=== PATIENT | female | born 1935 | race Caucasian/White ===

== ENCOUNTER 2020-02-15 15:48 | Inpatient (IN) | payer MEDICARE ==
[~2020-02-15] VITALS: Ht 147.3 cm; Wt 36.0 kg
[~2020-02-15 15:48] MED LIST: AMLO10TA8 PO; ANTI1COM3 PO; ASCO100019 PO; ASPI-630 PO; CHOL40003 PO; CYAN10002 IJ; LACT1CAP29 PO; LISI-338 PO; MAGN500C10 PO; OLIV250C PO; OMEG10003 PO; POLY17PO29 PO; RIBO1POW3 MC; UBID100C26 PO; [UNRECOGNIZED DRUG - OTHER]; [UNRECOGNIZED DRUG - OTHER]; [UNRECOGNIZED DRUG - OTHER]
[2020-02-15] MEDS ORDERED: MAGN250T10 PO (16:26)
[2020-02-15] MEDS ORDERED: AMLO10TA8 PO (16:26)
[2020-02-15] MEDS ORDERED: ACET500T68 PO (16:27)
[2020-02-15] MEDS ORDERED: IBUP-1027 PO (16:27)
[2020-02-15 16:30] VITALS: BP 133/87
--- NOTE | 2020-02-15 16:37 | PDOC1 ---
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 She c/o worsening weakness which has acutely worsened just over the past 2 weeks. Her sodium level on 02/03/2020 was 134 and on a repeat visit to gastroenterology she was just informed of a sodium level of 127 today and noted with a weight of 68 pounds which is a 6 pound weight loss from 02/03/2020. She was also noted with ferritin in the 1000s and She underwent emergency ex lap, reduction of internal hernia, small bowel resection, cecectomy, ileocecal anastomosis and abdominal washout on 04/28/2019 at [facility] for small bowel obstruction with ischemic colitis. Since that time she is continued to lose weight and struggles with malabsorption symptoms including iron deficiency anemia not tolerating oral iron therapy requiring 2 recent iron infusions. She has been increasing her PO intake, eats fish, avocado, protein shakes, and continues to lose weight. Due to her abdominal swelling she has been taking miralax to decrease her bloating, but at the same time complained to GI about diarrhea. Due to concern for pancreatic insufficiency in December she was started on Creon and did not feel that it was helping and she continue to lose weight. GI is recommending GATTEX, but primarily needs evaluation for TPN infusions and is being admitted for acute hyponatremia and failure to thrive. Past Medical History Cardiovascular: HTN CENTRAL NERVOUS SYSTEM: CVA GI: Diverticulosis, GERD, Other (Short bowel syndrome) Heme/Onc: Other (Ovarian cancer) Hepatobiliary: No pertinent hx Psych: No pertinent hx Rheumatologic: No pertinent hx Infectious disease: Bacterial vaginosis ENT: No pertinent hx Renal/: No pertinent hx Endocrine: No pertinent hx Dermatology: No pertinent hx Past Surgical History Past Surgical History Vertebroplasty T8 and T12 Past Surgical History: Cataract Removal, Hysterectomy Family History Family History: Hypertension (Father), Stroke (Father) Social History Smoke: No ALCOHOL: none Drugs: None Current Medications Current Medications Active Scripts Active Reported Acetaminophen 500 Mg Tablet 500 Mg PO TID PRN Ibuprofen 400 Mg Tablet 400 Mg PO PRN Q6HRS PRN Magnesium (Magnesium Oxide) 250 Mg Tablet 250 Mg PO DAILY Amlodipine Besylate 10 Mg Tablet 10 Mg PO HS Aspirin 81 Mg Tab.chew 81 Mg PO DAILY Miralax (Polyethylene Glycol 3350) 17 Gm Powd.pack 1 Pkt PO DAILY Cyanocobalamin Injection (Cyanocobalamin (Vitamin B-12)) 1,000 Mcg/1 Ml Vial 1,000 Mcg IJ 2-3 WEEKS D-Ribose (Ribose) 1 Gm Powder 1 Gm MC [pecta 501-c] [complete b complex] [super k with K2] Macular Benefits Combo Pack (Antiox#12/Om3/Dha/Epa/Lut/Zean) 1 Each Combo..pkg 1 Each PO Probiotic (Lactobacillus Combo No.10) 1 Each Capsule 1 Each PO Vitamin C (Ascorbic Acid) 1,000 Mg Tablet 1,000 Mg PO DAILY Vitamin D3 (Cholecalciferol (Vitamin D3)) 4,000 Unit Capsule 5,000 Unit PO DAILY Coq-10 (Ubidecarenone) 100 Mg Capsule 100 Mg PO DAILY Super Hollywood-3 (Hollywood-3 Fatty Acids) 1,000 Mg Capsule 1,000 Mg PO DAILY Allergies Allergies: Coded Allergies: No Known Drug Allergies (Unverified , 12/29/19) ROS General: YES: Fatigue, Malaise, Appetite; No: Chills, Night Sweats, Other PSYCHOLOGICAL ROS: No: Anxiety, Behavioral Disorder, Concentration difficultie, Decreased libido, Depression, Disorientation, Hallucinations, Hostility, Irritablity, Memory difficulties, Mood Swings, Obsessive thoughts, Physical abuse, Sexual abuse, Sleep disturbances, Suicidal ideation, Other Eyes: No Blurry vision, No Decreased vision, No Double vision, No Dry eyes, No Excessive tearing, No Eye Pain, No Itchy Eyes, No Loss of vision, No Photophobia, No Scotomata, No Uses contacts, No Uses glasses, No Other HEENT: No: Heacaches, Visual Changes, Hearing change, Nasal congestion, Nasal discharge, Oral lesions, Sinus pain, Sore Throat, Epistaxis, Sneezing, Snoring, Tinnitus, Vertigo, Vocal changes, Other ALLERGY AND IMMUNOLOGY: No: Hives, Insect Bite Sensitivity, Itchy/Watery Eyes, Nasal Congestion, Post Nasal Drip, Seasonal Allergies, Other Hematological and Lymphatic: No: Bleeding Problems, Blood Clots, Blood Transfusions, Brusing, Night Sweats, Pallor, Swollen Lymph Nodes, Other ENDOCRINE: No: Breast Changes, Galactorrhea, Hair Pattern Changes, Hot Flashes, Malaise/lethargy, Mood Swings, Palpitations, Polydipsia/polyuria, Skin Changes, Temperature Intolerance, Unexpected Weight Changes, Other Breast: No New/Changing Breast Lumps, No Nipple changes, No Nipple discharge, No Other Respiratory: No: Cough, Hemoptysis, Orthopnea, Pleuritic Pain, Shortness of breath, SOB with excertion, Sputum Changes, Stridor, Tachypnea, Wheezing, Other Cardiovascular: No Chest Pain, No Palpitations, No Orthopnea, No Paroxysmal Noc. Dyspnea, No Edema, No Lt Headedness, No Other Gastrointestinal: Yes Nausea, Yes Abdominal Pain, Yes Diarrhea, Yes Constipation; No Vomiting, No Melena, No Hematochezia, No Other Genitourinary: No Dysuria, No Frequency, No Incontinence, No Hematuria, No Retention, No Discharge, No Urgency, No Pain, No Flank Pain, No Other, No , No , No , No , No , No , No Musculoskeletal: Yes Gait Disturbance, Yes Muscular Weakness; No Joint Pain, No Joint Stiffness, No Joint Swelling, No Muscle Pain, No Pain In:, No Swelling In:, No Other Neurological: Yes Gait Disturbance; No Behavorial Changes, No Bowel/Bladder ControlChng, No Confusion, No Dizziness, No Headaches, No Impaired Coord/balance, No Memory Loss, No Numbness/Tingling, No Seizures, No Speech Problems, No Tremors, No Visual Changes, No Weakness, No Other Skin: No Dry Skin, No Eczema, No Hair Changes, No Lumps, No Mole Changes, No Mottling, No Nail Changes, No Pruritus, No Rash, No Skin Lesion Changes, No Other, No Acne Physical Exam General: Alert, Oriented X3, Cooperative, No acute distress HEENT: Atraumatic, PERRLA, EOMI, Mucous membr. moist/pink Lungs: Clear to auscultation, Normal air movement Heart: S1S2, RRR, no thrills, no rubs, no gallops, no murmurs Abdomen: Normal bowel sounds, Soft, No tenderness, No hepatosplenomegaly, No masses Rectal Exam: not examined Extremities: No clubbing, No cyanosis, No edema, Normal pulses, No tenderness/swelling Skin: No rashes, No breakdown, No significant lesion Neuro: Normal speech, Strength at 5/5 X4 ext, Normal tone, Sensation intact, Cranial nerves 3-12 NL, Reflexes 2+ Psych/Mental Status: Mental status NL, Mood NL Vitals Vitals Vital Signs Date Time Temp Pulse Resp B/P (MAP) Pulse Ox O2 Delivery O2 Flow Rate FiO2 02/15/20 16:30 97.7 83 16 133/87 (102) 95 Room Air 97.7 VTE Prophylaxis Ordered VTE Prophylaxis Devices: No VTE Pharmacological Prophylaxi: Yes Assessment/Plan Assessment/Plan A/P: Hyponatremia - likely nutritional with malabsorption, concerning with acuity, will consult nephrology, check repeat lytes, mag, K levels, replace IV. Unintentional weight loss - concerning for malabsorption vs malignancy. Will have CT abdomen, her most recent was 07/13/2019, with her cancer history and abdominal swelling is concerning H/o CVA - few residual deficits, will cont ASA, have PT and OT assessment as she has been progressively more weak lately. 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 GI consulted FEN - Regular diet, consult IR for PICC for TPN infusions PPX - lovenox CODE - DNR/DNI Dispo - inpatient for above Justicifation of Admission Dx: Justifications for Admission: Justification of Admission Dx: Yes CHF: Sev. Electrolyte Abnormal CIRO SERNA MD Feb 15, 2020 16:37
[2020-02-15] MEDS ORDERED: guaiFENesin ORAL 200 MG/10 ML LIQUID. PO PRN (17:00)
[2020-02-15] MEDS ORDERED: ONDANSETRON PF 4 MG/2 ML VIAL. IV PRN (17:00)
[2020-02-15] MEDS ORDERED: IV NORMAL SALINE 1000ML BAG 1,000 ML IV ONE (17:00)
[2020-02-15 18:20] LABS: BASO % 1 % (0-3); EOS % 1 % (0-3); HEMATOCRIT 35.5 % (36.0-47.0); HEMOGLOBIN 12.3 g/dL (12.0-15.5); LYMPH # 0.6 x10^3/uL (1.0-4.8); LYMPH % 13 % (24-48); MEAN CORPUSCULAR HEMOGLOBIN 32 pg (25-35); MEAN CORPUSCULAR HGB CONC 35 g/dL (31-37); MEAN CORPUSCULAR VOLUME 92 fL (79-100); MONO # 0.4 x10^3/uL (0.0-1.1); MONO % 10 % (0-9); NEUT # 3.3 x10^3/uL (1.8-7.7); NEUT % 76 % (31-73); PLATELET COUNT 286 x10^3/uL (140-400); RED BLOOD COUNT 3.86 x10^6/uL (3.50-5.40); RED CELL DISTRIBUTION WIDTH 26.5 % (11.5-14.5); WHITE BLOOD COUNT 4.3 x10^3/uL (4.0-11.0)
[2020-02-15 18:33] LABS: ALBUMIN/GLOBULIN RATIO 1.3 (1.0-1.7); CREATININE 0.8 mg/dL (0.6-1.0); GFR 68.7; TOTAL BILIRUBIN 0.3 mg/dL (0.2-1.0)
[2020-02-15 18:39] LABS: POTASSIUM 2.8 mmol/L (3.5-5.1)
[2020-02-15 19:00] VITALS: BP 134/62
[2020-02-15 19:15] LABS: ANISOCYTOSIS MARKED; PLT ESTIMATE ADEQUATE (ADEQUATE); SCHISTOCYTES FEW
[2020-02-15] MEDS ORDERED: POTASSIUM CHLORIDE 20 MEQ TABLET.ER. PO ONE (19:30)
[2020-02-15] MEDS: MIRTAZAPINE 7.5 MG TABLET. PO SCH (20:23)
[2020-02-15] MEDS: amLODIPine BESYLATE 10 MG TABLET PO SCH (20:23)
[2020-02-15] MEDS: POTASSIUM CHLORIDE 10MEQ 100 ML IV SCH (20:26)
[2020-02-15] MEDS ORDERED: MAGNESIUM SULFATE 2GM 50 ML IV ONE (21:00)
[2020-02-15] MEDS: ACETAMINOPHEN 325 MG TABLET. PO PRN (22:07)
[2020-02-15 23:00] VITALS: BP 133/59
[2020-02-16] MEDS: POTASSIUM CHLORIDE 10MEQ 100 ML IV SCH ×3 (00:22→11:20)
[2020-02-16 03:00] VITALS: BP 128/63
[2020-02-16 07:00] VITALS: BP 137/62
[2020-02-16 07:38] LABS: CALCIUM 8.5 mg/dL (8.5-10.1); CREATININE 0.5 mg/dL (0.6-1.0); GFR 118.1; POTASSIUM 3.5 mmol/L (3.5-5.1)
[2020-02-16] MEDS ORDERED: IOHEXOL 240 MG/ML 50ML VIAL. PO ONE (08:00)
[2020-02-16] MEDS ORDERED: IOHEXOL 300 MG/ML 100ML VIAL. IV ONE (08:00)
--- NOTE | 2020-02-16 08:53 | PDOC2 ---
GI CONSULT Date of Service: DATE: 02/16/20 TIME: 08:53 Reason For Consult: short bowel syndrome HPI: HPI: Pleasant 84 y/o female directly admitted per Dr. Smith for hyponatremia and weight loss. H/o malabsorption and short gut syndrome w/ h/o SBR for ischemia/internal hernia @ [facility] in 04/2019 (w/ 100cm of SB remaining). To have CT and PICC placement today w/ goal of home TPN, also to have nephrology evaluation. Eating well - has a good appetite and eats healthy proteins. No n/v or reflux/heartburn. No dysphagia. No bleeding. Has abdominal bloated and discomfort after eating that is momentarily relieved with stooling. Previously had diarrhea, then constipation thought related to iron infusions so started Miralax QD which she has continued. With this, has 2-3 stools daily soon after eating - stools are formed at first and then loose. H/o elevated fecal fat. Pancreatic enzymes ineffective (caused constipation and bloating). H/o anemia - iron and B12 deficient. Says [id number] gives her B12 inj. Has declined EGD and colonoscopy. Last colonoscopy normal in 2011. Had SIBO test yesterday. Gattex also discussed in the past. PMH: PMH: CVA, HTN, uterina cancer, BCC, anxiety, osteoporosis back surgery, cataract removal (bilateral), vertebroplasty x 2, hysterectomy FH: Family History: CVA, Hypertension Social History: Smoke: No ALCOHOL: none Drugs: None ROS: GEN: Denies fevers, chills, sweats HEENT: Denies blurred vision, sore throat CV: Denies chest pain RESP: Denies shortness of air, cough GI: Per HPI : Denies hematuria, dysuria ENDO: +weight loss NEURO: Denies confusion, dizziness MSK: +weakness SKIN: Denies jaundice, pruritus Vitals: Vitals: Vital Signs Date Time Temp Pulse Resp B/P (MAP) Pulse Ox O2 Delivery O2 Flow Rate FiO2 02/16/20 08:00 Room Air 02/16/20 07:00 97.8 79 137/62 (87) 97 97.8 02/15/20 23:00 22 Labs: Labs: Laboratory Tests Test 02/15/20 18:05 02/16/20 06:35 White Blood Count 4.3 x10^3/uL (4.0-11.0) Red Blood Count 3.86 x10^6/uL (3.50-5.40) Hemoglobin 12.3 g/dL (12.0-15.5) Hematocrit 35.5 % (36.0-47.0) Mean Corpuscular Volume 92 fL (79-100) Mean Corpuscular Hemoglobin 32 pg (25-35) Mean Corpuscular Hemoglobin Concent 35 g/dL (31-37) Red Cell Distribution Width 26.5 % (11.5-14.5) Platelet Count 286 x10^3/uL (140-400) Neutrophils (%) (Auto) 76 % (31-73) Lymphocytes (%) (Auto) 13 % (24-48) Monocytes (%) (Auto) 10 % (0-9) Eosinophils (%) (Auto) 1 % (0-3) Basophils (%) (Auto) 1 % (0-3) Neutrophils # (Auto) 3.3 x10^3/uL (1.8-7.7) Lymphocytes # (Auto) 0.6 x10^3/uL (1.0-4.8) Monocytes # (Auto) 0.4 x10^3/uL (0.0-1.1) Eosinophils # (Auto) 0.0 x10^3/uL (0.0-0.7) Basophils # (Auto) 0.0 x10^3/uL (0.0-0.2) Platelet Estimate Adequate (ADEQUATE) Anisocytosis Marked Schistocytes Few Sodium Level 127 mmol/L (136-145) 131 mmol/L (136-145) Potassium Level 2.8 mmol/L (3.5-5.1) 3.5 mmol/L (3.5-5.1) Chloride Level 90 mmol/L (98-107) 96 mmol/L (98-107) Carbon Dioxide Level 29 mmol/L (21-32) 30 mmol/L (21-32) Anion Gap 8 (6-14) 5 (6-14) Blood Urea Nitrogen 24 mg/dL (7-20) 17 mg/dL (7-20) Creatinine 0.8 mg/dL (0.6-1.0) 0.5 mg/dL (0.6-1.0) Estimated GFR (Cockcroft-Gault) 68.7 118.1 BUN/Creatinine Ratio 30 (6-20) Glucose Level 110 mg/dL (70-99) 76 mg/dL (70-99) Calcium Level 9.0 mg/dL (8.5-10.1) 8.5 mg/dL (8.5-10.1) Magnesium Level 1.7 mg/dL (1.8-2.4) Iron Level 92 ug/dL (50-170) Total Iron Binding Capacity 350 ug/dL (250-450) Iron Saturation 26 % (15-34) Total Bilirubin 0.3 mg/dL (0.2-1.0) Aspartate Amino Transf (AST/SGOT) 27 U/L (15-37) Alanine Aminotransferase (ALT/SGPT) 24 U/L (14-59) Alkaline Phosphatase 76 U/L (46-116) Total Protein 7.0 g/dL (6.4-8.2) Albumin 4.0 g/dL (3.4-5.0) Albumin/Globulin Ratio 1.3 (1.0-1.7) Allergies: Coded Allergies: No Known Drug Allergies (Unverified , 12/29/19) Medications: Current Medications Medications (Trade) Dose Ordered Sig/Yeimi Route PRN Reason Start Time Stop Time Status Last Admin Dose Admin Acetaminophen (Tylenol) 650 mg PRN Q4HRS PRN PO TEMP OVER 100.4F OR MILD PAIN 02/15/20 17:00 02/15/20 22:07 Amlodipine Besylate (Norvasc) 10 mg HS PO 02/15/20 21:00 02/15/20 20:23 Mirtazapine (Remeron) 7.5 mg QHS PO 02/15/20 21:00 02/15/20 20:23 Sodium Chloride 1,000 ml @ 75 mls/hr 1X ONCE IV 02/15/20 17:00 02/16/20 06:19 DC 02/15/20 17:27 Potassium Chloride/Water 100 ml @ 100 mls/hr Q1H IV 02/15/20 19:30 02/15/20 23:29 DC 02/16/20 06:23 Potassium Chloride (Klor-Con) 40 meq 1X ONCE PO 02/15/20 19:30 02/15/20 19:31 DC 02/15/20 20:25 Magnesium Sulfate 50 ml @ 25 mls/hr 1X ONCE IV 02/15/20 21:00 02/15/20 22:59 DC 02/16/20 03:39 Imaging: Imaging: CT A/P pending PE: GEN: NAD, emaciated HEENT: Atraumatic, PERRL LUNGS: CTAB HEART: RRR ABD: NABS, S/ND/NT EXTREMITY: No edema SKIN: No rashes, no jaundice NEURO/PSYCH: A & O 3 A/P: A/P: Hyponatremia, hypokalemia, weight loss, abd bloating H/o short bowel syndrome/malabsorption s/p SBR for ischemic/internal hernia H/o anemia - reports iron infusions and B12 inj CRC screen - 2011 -- Plans as above for CT and PICC placement. Consider port placement in the future. Will return to see w/ Dr. Worthington. NENO FAY Feb 16, 2020 08:53
[2020-02-16] MEDS ORDERED: NON FORMULARY ITEM (Ubidecarenone (Coq-10) 100 MG) PO SCH (09:00)
[2020-02-16] MEDS ORDERED: LIDOCAINE WITH 8.4% SOD BICARB 3 ML DISP.SYRIN. ONE (09:25)
[2020-02-16] MEDS ORDERED: LIDOCAINE WITH 8.4% SOD BICARB 3 ML DISP.SYRIN. INJ ONE (09:45)
[2020-02-16 10:54] VITALS: BP 146/67
--- NOTE | 2020-02-16 11:01 | PDOC2 ---
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 She c/o worsening weakness which has acutely worsened just over the past 2 weeks. She underwent emergency ex lap, reduction of internal hernia, small bowel resection, cecectomy, ileocecal anastomosis and abdominal washout on 04/28/2019 at [facility] for small bowel obstruction with ischemic colitis. Since that time she is continued to lose weight probably 2/2 malabsorption . Unable to tolerate oral iron therapy requiring 2 recent iron infusions. She has been increasing her PO intake but continues to lose weight. She noticed abdominal swelling and has been taking miralax to decrease her bloating, but reported diarrhea to GI Due to concern for pancreatic insufficiency in December she was started on Creon and did not feel that it was helping and she continue to lose weight. Pt admitted for evaluation for TPN infusions, failure to thrive and acute hyponatremia She denies N/V. No CP or SOB. No F/C. Denies any dysuria or other Urinary complaints . She ate BF this am, currently eating lunch Her sodium level on 02/03/2020 was 134 and on a repeat visit to gastroenterology she was just informed of a sodium level of 127 at presentation and noted with a weight of 68 pounds which is a 6 pound weight loss from 02/03/2020. Past Medical History Cardiovascular: HTN CENTRAL NERVOUS SYSTEM: CVA GI: Diverticulosis, GERD, Other (Short bowel syndrome) Heme/Onc: Other (Ovarian cancer) Hepatobiliary: No pertinent hx Psych: No pertinent hx Rheumatologic: No pertinent hx Infectious disease: Bacterial vaginosis ENT: No pertinent hx Renal/: No pertinent hx Endocrine: No pertinent hx Dermatology: No pertinent hx Past Surgical History Past Surgical History: Cataract Removal, Hysterectomy Family History Family History: Hypertension (Father), Stroke (Father) Social History No ALCOHOL: none Drugs: None Current Medications Current Medications Current Medications Ondansetron HCl (Zofran) 4 mg PRN Q4HRS PRN IV NAUSEA/VOMITING; Start 02/15/20 at 17:00 Acetaminophen (Tylenol) 650 mg PRN Q4HRS PRN PO TEMP OVER 100.4F OR MILD PAIN Last administered on 02/15/20at 22:07; Start 02/15/20 at 17:00 Docusate Sodium (Colace) 100 mg PRN BID PRN PO HARD STOOLS; Start 02/15/20 at 17:00 Guaifenesin (Robitussin) 200 mg PRN Q4HRS PRN PO COUGH; Start 02/15/20 at 17:00 Amlodipine Besylate (Norvasc) 10 mg HS PO Last administered on 02/15/20at 20:23; Start 02/15/20 at 21:00 Aspirin (Aspirin Chewable) 81 mg DAILY PO ; Start 02/16/20 at 09:00 Ascorbic Acid (Vitamin C) 1,000 mg DAILY PO ; Start 02/16/20 at 09:00 Vitamin D (Vitamin D3) 5,000 unit DAILY PO ; Start 02/16/20 at 09:00 Magnesium Oxide (Magnesium Oxide) 400 mg DAILY PO ; Start 02/16/20 at 09:00 Fish Oil (Fish Oil) 1,000 mg DAILY PO ; Start 02/16/20 at 09:00 Non-Formulary Medication (Ubidecarenone (Coq-10)) 100 mg DAILY PO ; Start at 09:00; Status UNV Mirtazapine (Remeron) 7.5 mg QHS PO Last administered on 02/15/20at 20:23; Start 02/15/20 at 21:00 Sodium Chloride 1,000 ml @ 75 mls/hr 1X ONCE IV Last administered on 02/15/20at 17:27; Start 02/15/20 at 17:00; Stop 02/16/20 at 06:19; Status DC Potassium Chloride/Water 100 ml @ 100 mls/hr Q1H IV Last administered on 02/16/20at 06:23; Start 02/15/20 at 19:30; Stop 02/15/20 at 23:29; Status DC Potassium Chloride (Klor-Con) 40 meq 1X ONCE PO Last administered on 02/15/20at 20:25; Start 02/15/20 at 19:30; Stop 02/15/20 at 19:31; Status DC Magnesium Sulfate 50 ml @ 25 mls/hr 1X ONCE IV Last administered on 02/16/20at 03:39; Start 02/15/20 at 21:00; Stop 02/15/20 at 22:59; Status DC Iohexol (Omnipaque 240 Mg/ml) 30 ml 1X ONCE PO Last administered on 02/16/20at 08:00; Start 02/16/20 at 08:00; Stop 02/16/20 at 08:01; Status DC Iohexol (Omnipaque 300 Mg/ml) 75 ml 1X ONCE IV Last administered on 02/16/20at 09:20; Start 02/16/20 at 08:00; Stop 02/16/20 at 08:01; Status DC Lidocaine HCl (Buffered Lidocaine 1%) 3 ml STK-MED ONCE .ROUTE ; Start 02/16/20 at 09:25; Stop 02/16/20 at 09:25; Status DC Lidocaine HCl (Buffered Lidocaine 1%) 6 ml 1X ONCE INJ Last administered on 02/16/20at 09:56; Start 02/16/20 at 09:45; Stop 02/16/20 at 09:46; Status DC Active Scripts Active Reported Acetaminophen 500 Mg Tablet 500 Mg PO TID PRN Ibuprofen 400 Mg Tablet 400 Mg PO PRN Q6HRS PRN Magnesium (Magnesium Oxide) 250 Mg Tablet 250 Mg PO DAILY Amlodipine Besylate 10 Mg Tablet 10 Mg PO HS Aspirin 81 Mg Tab.chew 81 Mg PO DAILY Miralax (Polyethylene Glycol 3350) 17 Gm Powd.pack 1 Pkt PO DAILY Cyanocobalamin Injection (Cyanocobalamin (Vitamin B-12)) 1,000 Mcg/1 Ml Vial 1,000 Mcg IJ 2-3 WEEKS D-Ribose (Ribose) 1 Gm Powder 1 Gm MC [pecta 501-c] [complete b complex] [super k with K2] Macular Benefits Combo Pack (Antiox#12/Om3/Dha/Epa/Lut/Zean) 1 Each Combo..pkg 1 Each PO Probiotic (Lactobacillus Combo No.10) 1 Each Capsule 1 Each PO Vitamin C (Ascorbic Acid) 1,000 Mg Tablet 1,000 Mg PO DAILY Vitamin D3 (Cholecalciferol (Vitamin D3)) 4,000 Unit Capsule 5,000 Unit PO DAILY Coq-10 (Ubidecarenone) 100 Mg Capsule 100 Mg PO DAILY Super Weed-3 (Weed-3 Fatty Acids) 1,000 Mg Capsule 1,000 Mg PO DAILY Allergies Allergies: Coded Allergies: No Known Drug Allergies (Unverified , 12/29/19) ROS Review of System As per HPI, rest of the ROS is negative Physical Exam Physical Exam General: No acute distress HEENT: Atraumatic, PERRLA, EOMI, Mucous membr. moist/pink Neck Supple Lungs: Clear to auscultation, Non labored Heart: S1S2, RRR, Abdomen: Normal bowel sounds, Soft, No tenderness, No hepatosplenomegaly, No masses Extremities: No clubbing, No cyanosis, No edema, Normal pulses, No tenderness/swelling Skin: No rashes Neuro: Grossly normal Psych/Mental Status: Mental status NL, Mood NL Vital Signs Vital Signs Date Time Temp Pulse Resp B/P (MAP) Pulse Ox O2 Delivery O2 Flow Rate FiO2 02/16/20 08:00 Room Air 02/16/20 07:00 97.8 79 137/62 (87) 97 97.8 02/15/20 23:00 22 Assessment & Plan Hyponatremia - likely nutritional with malabsorption, Dehydration Improved some with IVF, Mildly low , Monitor Anticipate improvement with TPN HypoKalemia Replaced Unintentional weight loss - concerning for malabsorption vs malignancy. CT abdomen pending report HTN - On Amlodipine, stable H/o CVA Severe protein calorie malnutrition - by weight loss and muscle mass loss criteria, will likely require TPN and interior block wirer assistance H/o ovarian cancer Short bowel syndrome - recent surgery for ischemic bowel 10 months ago Anemia - s/p iron infusion recently Failure to thrive Abdominal swelling - CT abdomen/pelvis pending, GI consulted Labs Labs Laboratory Tests Test 02/15/20 18:05 02/16/20 06:35 White Blood Count 4.3 x10^3/uL (4.0-11.0) Red Blood Count 3.86 x10^6/uL (3.50-5.40) Hemoglobin 12.3 g/dL (12.0-15.5) Hematocrit 35.5 % (36.0-47.0) Mean Corpuscular Volume 92 fL (79-100) Mean Corpuscular Hemoglobin 32 pg (25-35) Mean Corpuscular Hemoglobin Concent 35 g/dL (31-37) Red Cell Distribution Width 26.5 % (11.5-14.5) Platelet Count 286 x10^3/uL (140-400) Neutrophils (%) (Auto) 76 % (31-73) Lymphocytes (%) (Auto) 13 % (24-48) Monocytes (%) (Auto) 10 % (0-9) Eosinophils (%) (Auto) 1 % (0-3) Basophils (%) (Auto) 1 % (0-3) Neutrophils # (Auto) 3.3 x10^3/uL (1.8-7.7) Lymphocytes # (Auto) 0.6 x10^3/uL (1.0-4.8) Monocytes # (Auto) 0.4 x10^3/uL (0.0-1.1) Eosinophils # (Auto) 0.0 x10^3/uL (0.0-0.7) Basophils # (Auto) 0.0 x10^3/uL (0.0-0.2) Platelet Estimate Adequate (ADEQUATE) Anisocytosis Marked Schistocytes Few Sodium Level 127 mmol/L (136-145) 131 mmol/L (136-145) Potassium Level 2.8 mmol/L (3.5-5.1) 3.5 mmol/L (3.5-5.1) Chloride Level 90 mmol/L (98-107) 96 mmol/L (98-107) Carbon Dioxide Level 29 mmol/L (21-32) 30 mmol/L (21-32) Anion Gap 8 (6-14) 5 (6-14) Blood Urea Nitrogen 24 mg/dL (7-20) 17 mg/dL (7-20) Creatinine 0.8 mg/dL (0.6-1.0) 0.5 mg/dL (0.6-1.0) Estimated GFR (Cockcroft-Gault) 68.7 118.1 BUN/Creatinine Ratio 30 (6-20) Glucose Level 110 mg/dL (70-99) 76 mg/dL (70-99) Calcium Level 9.0 mg/dL (8.5-10.1) 8.5 mg/dL (8.5-10.1) Magnesium Level 1.7 mg/dL (1.8-2.4) Iron Level 92 ug/dL (50-170) Total Iron Binding Capacity 350 ug/dL (250-450) Iron Saturation 26 % (15-34) Total Bilirubin 0.3 mg/dL (0.2-1.0) Aspartate Amino Transf (AST/SGOT) 27 U/L (15-37) Alanine Aminotransferase (ALT/SGPT) 24 U/L (14-59) Alkaline Phosphatase 76 U/L (46-116) Total Protein 7.0 g/dL (6.4-8.2) Albumin 4.0 g/dL (3.4-5.0) Albumin/Globulin Ratio 1.3 (1.0-1.7) Laboratory Tests Test 02/15/20 18:05 02/16/20 06:35 White Blood Count 4.3 x10^3/uL (4.0-11.0) Red Blood Count 3.86 x10^6/uL (3.50-5.40) Hemoglobin 12.3 g/dL (12.0-15.5) Hematocrit 35.5 % (36.0-47.0) Mean Corpuscular Volume 92 fL (79-100) Mean Corpuscular Hemoglobin 32 pg (25-35) Mean Corpuscular Hemoglobin Concent 35 g/dL (31-37) Red Cell Distribution Width 26.5 % (11.5-14.5) Platelet Count 286 x10^3/uL (140-400) Neutrophils (%) (Auto) 76 % (31-73) Lymphocytes (%) (Auto) 13 % (24-48) Monocytes (%) (Auto) 10 % (0-9) Eosinophils (%) (Auto) 1 % (0-3) Basophils (%) (Auto) 1 % (0-3) Neutrophils # (Auto) 3.3 x10^3/uL (1.8-7.7) Lymphocytes # (Auto) 0.6 x10^3/uL (1.0-4.8) Monocytes # (Auto) 0.4 x10^3/uL (0.0-1.1) Eosinophils # (Auto) 0.0 x10^3/uL (0.0-0.7) Basophils # (Auto) 0.0 x10^3/uL (0.0-0.2) Platelet Estimate Adequate (ADEQUATE) Anisocytosis Marked Schistocytes Few Sodium Level 127 mmol/L (136-145) 131 mmol/L (136-145) Potassium Level 2.8 mmol/L (3.5-5.1) 3.5 mmol/L (3.5-5.1) Chloride Level 90 mmol/L (98-107) 96 mmol/L (98-107) Carbon Dioxide Level 29 mmol/L (21-32) 30 mmol/L (21-32) Anion Gap 8 (6-14) 5 (6-14) Blood Urea Nitrogen 24 mg/dL (7-20) 17 mg/dL (7-20) Creatinine 0.8 mg/dL (0.6-1.0) 0.5 mg/dL (0.6-1.0) Estimated GFR (Cockcroft-Gault) 68.7 118.1 BUN/Creatinine Ratio 30 (6-20) Glucose Level 110 mg/dL (70-99) 76 mg/dL (70-99) Calcium Level 9.0 mg/dL (8.5-10.1) 8.5 mg/dL (8.5-10.1) Magnesium Level 1.7 mg/dL (1.8-2.4) Iron Level 92 ug/dL (50-170) Total Iron Binding Capacity 350 ug/dL (250-450) Iron Saturation 26 % (15-34) Total Bilirubin 0.3 mg/dL (0.2-1.0) Aspartate Amino Transf (AST/SGOT) 27 U/L (15-37) Alanine Aminotransferase (ALT/SGPT) 24 U/L (14-59) Alkaline Phosphatase 76 U/L (46-116) Total Protein 7.0 g/dL (6.4-8.2) Albumin 4.0 g/dL (3.4-5.0) Albumin/Globulin Ratio 1.3 (1.0-1.7) Review All relevant outside records, renal labs, imaging studies, telemetry/EKG's were reviewed. ANGELA ECKERT MD Feb 16, 2020 11:01
[2020-02-16] MEDS ORDERED: POTASSIUM CHLORIDE 20 MEQ TABLET.ER. PO ONE (11:15)
--- NOTE | 2020-02-16 11:19 | PDOC ---
[employer] PROGRESS NOTE Date of Service DOS: DATE: 02/16/20 TIME: 11:12 Chief Complaint Chief Complaint A/P: Hyponatremia - likely nutritional with malabsorption, concerning with acuity, will consult nephrology, check repeat lytes, mag, K levels, replace IV. Hypokalemia - replacing Hypomagnesemia - replacing Unintentional weight loss - concerning for malabsorption vs malignancy. Will have CT abdomen, her most recent was 07/13/2019, with her cancer history and abdominal swelling is concerning H/o CVA - few residual deficits, will cont ASA, have PT and OT assessment as she has been progressively more weak lately. Severe protein calorie malnutrition - by weight loss and muscle mass loss criteria, will likely require TPN and editor assistance HTN - cont home CCB H/o ovarian cancer - will order [facility] records Short bowel syndrome - working diagnosis given her recent surgery for ischemic bowel 10 months ago Anemia - iron replaced, likely also with anemia of chronic disease/inflammation Failure to thrive in adult - see above Weakness and debility - partially nutritionally related, needs rehabilitation Abdominal swelling - will review CT abdomen/pelvis. 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 She c/o worsening weakness which has acutely worsened just over the past 2 weeks. Her sodium level on 02/03/2020 was 134 and on a repeat visit to gastroenterology she was just informed of a sodium level of 127 today and noted with a weight of 68 pounds which is a 6 pound weight loss from 02/03/2020. She was also noted with ferritin in the 1000s and She underwent emergency ex lap, reduction of internal hernia, small bowel re section, cecectomy, ileocecal anastomosis and abdominal washout on 04/28/2019 at [facility] for small bowel obstruction with ischemic colitis. Since that time she is continued to lose weight and struggles with malabsorption symptoms including iron deficiency anemia not tolerating oral iron therapy requiring 2 recent iron infusions. She has been increasing her PO intake, eats fish, avocado, protein shakes, and continues to lose weight. Due to her abdominal swelling she has been taking miralax to decrease her bloating, but at the same time complained to GI about diarrhea. Due to concern for pancreatic insufficiency in December she was started on Creon and did not feel that it was helping and she continue to lose weight. GI is recommending GATTEX, but primarily needs evaluation for TPN infusions and is being admitted for acute hyponatremia and failure to thrive. Potassium was 2.8, improved to 3.5 today, magnesium 1.7 was replaced. Sodium 131 today. She is feeling improved. To PICC line today. Voracious appetite. CT by my read appears to show some nodules in the liver and a very large fluid collection in the right middle aspect of the liver. Vitals/I&O Vitals/I&O: Vital Signs Date Time Temp Pulse Resp B/P (MAP) Pulse Ox O2 Delivery O2 Flow Rate FiO2 02/16/20 10:54 97.9 76 146/67 (93) 94 Room Air 97.9 02/15/20 23:00 22 I & O 02/15/20 02/15/20 02/16/20 15:00 23:00 07:00 Intake Total 380 ml 200 ml Output Total 1150 ml Balance 380 ml -950 ml Physical Exam General: Alert, Oriented X3, Cooperative, No acute distress Abdomen: Normal bowel sounds, Soft, No tenderness, No hepatosplenomegaly, No masses Extremities: No clubbing, No cyanosis, No edema, Normal pulses, No tenderness/swelling Skin: No rashes, No breakdown, No significant lesion Labs Labs: Laboratory Tests Test 02/15/20 18:05 02/16/20 06:35 White Blood Count 4.3 x10^3/uL (4.0-11.0) Red Blood Count 3.86 x10^6/uL (3.50-5.40) Hemoglobin 12.3 g/dL (12.0-15.5) Hematocrit 35.5 % (36.0-47.0) Mean Corpuscular Volume 92 fL (79-100) Mean Corpuscular Hemoglobin 32 pg (25-35) Mean Corpuscular Hemoglobin Concent 35 g/dL (31-37) Red Cell Distribution Width 26.5 % (11.5-14.5) Platelet Count 286 x10^3/uL (140-400) Neutrophils (%) (Auto) 76 % (31-73) Lymphocytes (%) (Auto) 13 % (24-48) Monocytes (%) (Auto) 10 % (0-9) Eosinophils (%) (Auto) 1 % (0-3) Basophils (%) (Auto) 1 % (0-3) Neutrophils # (Auto) 3.3 x10^3/uL (1.8-7.7) Lymphocytes # (Auto) 0.6 x10^3/uL (1.0-4.8) Monocytes # (Auto) 0.4 x10^3/uL (0.0-1.1) Eosinophils # (Auto) 0.0 x10^3/uL (0.0-0.7) Basophils # (Auto) 0.0 x10^3/uL (0.0-0.2) Platelet Estimate Adequate (ADEQUATE) Anisocytosis Marked Schistocytes Few Sodium Level 127 mmol/L (136-145) 131 mmol/L (136-145) Potassium Level 2.8 mmol/L (3.5-5.1) 3.5 mmol/L (3.5-5.1) Chloride Level 90 mmol/L (98-107) 96 mmol/L (98-107) Carbon Dioxide Level 29 mmol/L (21-32) 30 mmol/L (21-32) Anion Gap 8 (6-14) 5 (6-14) Blood Urea Nitrogen 24 mg/dL (7-20) 17 mg/dL (7-20) Creatinine 0.8 mg/dL (0.6-1.0) 0.5 mg/dL (0.6-1.0) Estimated GFR (Cockcroft-Gault) 68.7 118.1 BUN/Creatinine Ratio 30 (6-20) Glucose Level 110 mg/dL (70-99) 76 mg/dL (70-99) Calcium Level 9.0 mg/dL (8.5-10.1) 8.5 mg/dL (8.5-10.1) Magnesium Level 1.7 mg/dL (1.8-2.4) Iron Level 92 ug/dL (50-170) Total Iron Binding Capacity 350 ug/dL (250-450) Iron Saturation 26 % (15-34) Total Bilirubin 0.3 mg/dL (0.2-1.0) Aspartate Amino Transf (AST/SGOT) 27 U/L (15-37) Alanine Aminotransferase (ALT/SGPT) 24 U/L (14-59) Alkaline Phosphatase 76 U/L (46-116) Total Protein 7.0 g/dL (6.4-8.2) Albumin 4.0 g/dL (3.4-5.0) Albumin/Globulin Ratio 1.3 (1.0-1.7) Comment Review of Relevant I have reviewed the following items yuni (where applicable) has been applied. Medications: Current Medications Medications (Trade) Dose Ordered Sig/Yeimi Route PRN Reason Start Time Stop Time Status Last Admin Dose Admin Acetaminophen (Tylenol) 650 mg PRN Q4HRS PRN PO TEMP OVER 100.4F OR MILD PAIN 02/15/20 17:00 02/15/20 22:07 Amlodipine Besylate (Norvasc) 10 mg HS PO 02/15/20 21:00 02/15/20 20:23 Mirtazapine (Remeron) 7.5 mg QHS PO 02/15/20 21:00 02/15/20 20:23 Sodium Chloride 1,000 ml @ 75 mls/hr 1X ONCE IV 02/15/20 17:00 02/16/20 06:19 DC 02/15/20 17:27 Potassium Chloride/Water 100 ml @ 100 mls/hr Q1H IV 02/15/20 19:30 02/15/20 23:29 DC 02/16/20 06:23 Potassium Chloride (Klor-Con) 40 meq 1X ONCE PO 02/15/20 19:30 02/15/20 19:31 DC 02/15/20 20:25 Magnesium Sulfate 50 ml @ 25 mls/hr 1X ONCE IV 02/15/20 21:00 02/15/20 22:59 DC 02/16/20 03:39 Iohexol (Omnipaque 240 Mg/ml) 30 ml 1X ONCE PO 02/16/20 08:00 02/16/20 08:01 DC 02/16/20 08:00 Iohexol (Omnipaque 300 Mg/ml) 75 ml 1X ONCE IV 02/16/20 08:00 02/16/20 08:01 DC 02/16/20 09:20 Lidocaine HCl (Buffered Lidocaine 1%) 6 ml 1X ONCE INJ 02/16/20 09:45 02/16/20 09:46 DC 02/16/20 09:56 Justicifation of Admission Dx: Justifications for Admission: Justification of Admission Dx: Yes CHF: Sev. Electrolyte Abnormal CIRO SERNA MD Feb 16, 2020 11:19
[2020-02-16] MEDS: ASCORBIC ACID 500 MG TABLET PO SCH (11:20)
[2020-02-16] MEDS: ASPIRIN CHEWABLE 81 MG TABLET. PO SCH (11:20)
[2020-02-16] MEDS: CHOLECALCIFEROL (VITAMIN D3) 5,000 UNIT CAPSULE PO SCH (11:21)
[2020-02-16] MEDS: MAGNESIUM OXIDE 400 MG TABLET PO SCH (11:21)
[2020-02-16] MEDS: OMEGA-3 FATTY ACIDS/FISH OIL 1,000 MG CAPSULE. PO SCH (11:21)
--- NOTE | 2020-02-16 11:23 | NUR ---
SS following for discharge planning. SS reviewed pt chart and discussed with pt RN. Pt is from home and is currently on room air. PT/OT evaluated and recommended home with home healthcare. SS will continue to follow for discharge planning.
--- NOTE | 2020-02-16 11:56 | RAD ---
Procedure: Upper extremity PICC line placement Clinical Indication: Adult female requiring long-term central venous access Sedation: Local anesthesia only was provided Antibiotics: None Fluoro Time: 2.1 minutes, images: 1 Contrast: None Sterility: All elements of maximal sterile barrier technique including the use of a cap, mask, sterile gown, sterile gloves, large sterile sheet, appropriate hand hygiene, and 2% chlorhexidine for cutaneous antisepsis (or acceptable alternative antiseptic per current guidelines) were followed for this procedure. Consent: The procedure was explained in its entirety to the patient or the patients designated account maintenance representative by a member of the treatment team, including a discussion of the risks, benefits and commonly accepted alternatives to the procedure, as well as the expected consequences of no therapy whatsoever. Discussion of the risks included, but was not limited to, those that are most frequent and those that are rare but possibly severe or life-threatening, as well as the possibility of unforeseen complications. Technique and Findings: Following informed consent, the patient was prepped and draped in the usual sterile fashion. Ultrasound interrogation of the right arm revealed patency and compressibility of the right brachial vein. A hard copy ultrasound image was recorded. 1% Lidocaine was used to achieve local anesthesia and a 21-gauge micropuncture needle was used to gain access to the targeted vein. The needle was exchanged over wire for a 5 Albanian peel-away sheath which was used to deploy a PICC line under fluoroscopic guidance such that the distal tip resided at the cavoatrial junction. The catheter flushed and aspirated with ease and was sutured to the skin. Complications: No immediate Impression: 1. Ultrasound guided PICC line placement as described.
--- NOTE | 2020-02-16 12:08 | PDOC2 ---
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 She is severely cachectic and admitted for TPN and correction of electrolytes. 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 Past Medical History Cardiovascular: HTN CENTRAL NERVOUS SYSTEM: CVA GI: Diverticulosis, GERD, Other (Short bowel syndrome) Heme/Onc: Other (Ovarian cancer) Hepatobiliary: No pertinent hx Psych: No pertinent hx Rheumatologic: No pertinent hx Infectious disease: Bacterial vaginosis ENT: No pertinent hx Renal/: No pertinent hx Endocrine: No pertinent hx Dermatology: No pertinent hx Past Surgical History Past Surgical History: Cataract Removal, Hysterectomy Family History Family History: Hypertension (Father), Stroke (Father) Social History No ALCOHOL: none Drugs: None Current Medications Current Medications Current Medications Ondansetron HCl (Zofran) 4 mg PRN Q4HRS PRN IV NAUSEA/VOMITING; Start 02/15/20 at 17:00 Acetaminophen (Tylenol) 650 mg PRN Q4HRS PRN PO TEMP OVER 100.4F OR MILD PAIN Last administered on 02/15/20at 22:07; Start 02/15/20 at 17:00 Docusate Sodium (Colace) 100 mg PRN BID PRN PO HARD STOOLS; Start 02/15/20 at 17:00 Guaifenesin (Robitussin) 200 mg PRN Q4HRS PRN PO COUGH; Start 02/15/20 at 17:00 Amlodipine Besylate (Norvasc) 10 mg HS PO Last administered on 02/15/20at 20:23; Start 02/15/20 at 21:00 Aspirin (Aspirin Chewable) 81 mg DAILY PO Last administered on 02/16/20at 11:20; Start 02/16/20 at 09:00 Ascorbic Acid (Vitamin C) 1,000 mg DAILY PO Last administered on 02/16/20at 11:20; Start 02/16/20 at 09:00 Vitamin D (Vitamin D3) 5,000 unit DAILY PO Last administered on 02/16/20at 11:21; Start 02/16/20 at 09:00 Magnesium Oxide (Magnesium Oxide) 400 mg DAILY PO Last administered on 02/16/20at 11:21; Start 02/16/20 at 09:00 Fish Oil (Fish Oil) 1,000 mg DAILY PO Last administered on 02/16/20at 11:21; Start 02/16/20 at 09:00 Non-Formulary Medication (Ubidecarenone (Coq-10)) 100 mg DAILY PO ; Start 02/16/20 at 09:00; Status UNV Mirtazapine (Remeron) 7.5 mg QHS PO Last administered on 02/15/20at 20:23; Start 02/15/20 at 21:00 Sodium Chloride 1,000 ml @ 75 mls/hr 1X ONCE IV Last administered on 02/15/20at 17:27; Start 02/15/20 at 17:00; Stop 02/16/20 at 06:19; Status DC Potassium Chloride/Water 100 ml @ 100 mls/hr Q1H IV Last administered on 02/16/20at 11:20; Start 02/15/20 at 19:30; Stop 02/15/20 at 23:29; Status DC Potassium Chloride (Klor-Con) 40 meq 1X ONCE PO Last administered on 02/15/20at 20:25; Start 02/15/20 at 19:30; Stop 02/15/20 at 19:31; Status DC Magnesium Sulfate 50 ml @ 25 mls/hr 1X ONCE IV Last administered on 02/16/20at 03:39; Start 02/15/20 at 21:00; Stop 02/15/20 at 22:59; Status DC Iohexol (Omnipaque 240 Mg/ml) 30 ml 1X ONCE PO Last administered on 02/16/20at 08:00; Start 02/16/20 at 08:00; Stop 02/16/20 at 08:01; Status DC Iohexol (Omnipaque 300 Mg/ml) 75 ml 1X ONCE IV Last administered on 02/16/20at 09:20; Start 02/16/20 at 08:00; Stop 02/16/20 at 08:01; Status DC Lidocaine HCl (Buffered Lidocaine 1%) 3 ml STK-MED ONCE .ROUTE ; Start 02/16/20 at 09:25; Stop 02/16/20 at 09:25; Status DC Lidocaine HCl (Buffered Lidocaine 1%) 6 ml 1X ONCE INJ Last administered on 02/16/20at 09:56; Start 02/16/20 at 09:45; Stop 02/16/20 at 09:46; Status DC Potassium Chloride (Klor-Con) 40 meq 1X ONCE PO Last administered on 02/16/20at 11:23; Start 02/16/20 at 11:15; Stop 02/16/20 at 11:16; Status DC Active Scripts Active Reported Acetaminophen 500 Mg Tablet 500 Mg PO TID PRN Ibuprofen 400 Mg Tablet 400 Mg PO PRN Q6HRS PRN Magnesium (Magnesium Oxide) 250 Mg Tablet 250 Mg PO DAILY Amlodipine Besylate 10 Mg Tablet 10 Mg PO HS Aspirin 81 Mg Tab.chew 81 Mg PO DAILY Miralax (Polyethylene Glycol 3350) 17 Gm Powd.pack 1 Pkt PO DAILY Cyanocobalamin Injection (Cyanocobalamin (Vitamin B-12)) 1,000 Mcg/1 Ml Vial 1,000 Mcg IJ 2-3 WEEKS D-Ribose (Ribose) 1 Gm Powder 1 Gm MC [pecta 501-c] [complete b complex] [super k with K2] Macular Benefits Combo Pack (Antiox#12/Om3/Dha/Epa/Lut/Zean) 1 Each Combo..pkg 1 Each PO Probiotic (Lactobacillus Combo No.10) 1 Each Capsule 1 Each PO Vitamin C (Ascorbic Acid) 1,000 Mg Tablet 1,000 Mg PO DAILY Vitamin D3 (Cholecalciferol (Vitamin D3)) 4,000 Unit Capsule 5,000 Unit PO DAILY Coq-10 (Ubidecarenone) 100 Mg Capsule 100 Mg PO DAILY Super [place]-3 ([place]-3 Fatty Acids) 1,000 Mg Capsule 1,000 Mg PO DAILY Allergies Allergies: Coded Allergies: No Known Drug Allergies (Unverified , 12/29/19) ROS General: No: Chills, Night Sweats, Fatigue, Malaise, Appetite, Other Respiratory: No: Cough, Hemoptysis, Orthopnea, Pleuritic Pain, Shortness of breath, SOB with excertion, Sputum Changes, Stridor, Tachypnea, Wheezing, Other Cardiovascular: No Chest Pain, No Palpitations, No Orthopnea, No Paroxysmal Noc. Dyspnea, No Edema, No Lt Headedness, No Other Gastrointestinal: Yes Other (abdominal swelling) Musculoskeletal: Yes Other (chronic back pain) Neurological: No Behavorial Changes, No Bowel/Bladder ControlChng, No Confusion, No Dizziness, No Gait Disturbance, No Headaches, No Impaired Coord/balance, No Memory Loss, No Numbness/Tingling, No Seizures, No Speech Problems, No Tremors, No Visual Changes, No Weakness, No Other Skin: No Dry Skin, No Eczema, No Hair Changes, No Lumps, No Mole Changes, No Mottling, No Nail Changes, No Pruritus, No Rash, No Skin Lesion Changes, No Other, No Acne Physical Exam General: Alert, Oriented X3, Cooperative, Other (cachectic) HEENT: Atraumatic Lungs: Clear to auscultation Heart: Regular rate Abdomen: Soft (very thin) Extremities: No clubbing, No cyanosis Skin: No rashes Neuro: Normal speech Psych/Mental Status: Mental status NL Vitals VITALS Vital Signs Date Time Temp Pulse Resp B/P (MAP) Pulse Ox O2 Delivery O2 Flow Rate FiO2 02/16/20 10:54 97.9 76 146/67 (93) 94 Room Air 97.9 02/15/20 23:00 22 Labs Labs Laboratory Tests Test 02/15/20 18:05 02/16/20 06:35 White Blood Count 4.3 x10^3/uL (4.0-11.0) Red Blood Count 3.86 x10^6/uL (3.50-5.40) Hemoglobin 12.3 g/dL (12.0-15.5) Hematocrit 35.5 % (36.0-47.0) Mean Corpuscular Volume 92 fL (79-100) Mean Corpuscular Hemoglobin 32 pg (25-35) Mean Corpuscular Hemoglobin Concent 35 g/dL (31-37) Red Cell Distribution Width 26.5 % (11.5-14.5) Platelet Count 286 x10^3/uL (140-400) Neutrophils (%) (Auto) 76 % (31-73) Lymphocytes (%) (Auto) 13 % (24-48) Monocytes (%) (Auto) 10 % (0-9) Eosinophils (%) (Auto) 1 % (0-3) Basophils (%) (Auto) 1 % (0-3) Neutrophils # (Auto) 3.3 x10^3/uL (1.8-7.7) Lymphocytes # (Auto) 0.6 x10^3/uL (1.0-4.8) Monocytes # (Auto) 0.4 x10^3/uL (0.0-1.1) Eosinophils # (Auto) 0.0 x10^3/uL (0.0-0.7) Basophils # (Auto) 0.0 x10^3/uL (0.0-0.2) Platelet Estimate Adequate (ADEQUATE) Anisocytosis Marked Schistocytes Few Sodium Level 127 mmol/L (136-145) 131 mmol/L (136-145) Potassium Level 2.8 mmol/L (3.5-5.1) 3.5 mmol/L (3.5-5.1) Chloride Level 90 mmol/L (98-107) 96 mmol/L (98-107) Carbon Dioxide Level 29 mmol/L (21-32) 30 mmol/L (21-32) Anion Gap 8 (6-14) 5 (6-14) Blood Urea Nitrogen 24 mg/dL (7-20) 17 mg/dL (7-20) Creatinine 0.8 mg/dL (0.6-1.0) 0.5 mg/dL (0.6-1.0) Estimated GFR (Cockcroft-Gault) 68.7 118.1 BUN/Creatinine Ratio 30 (6-20) Glucose Level 110 mg/dL (70-99) 76 mg/dL (70-99) Calcium Level 9.0 mg/dL (8.5-10.1) 8.5 mg/dL (8.5-10.1) Magnesium Level 1.7 mg/dL (1.8-2.4) Iron Level 92 ug/dL (50-170) Total Iron Binding Capacity 350 ug/dL (250-450) Iron Saturation 26 % (15-34) Total Bilirubin 0.3 mg/dL (0.2-1.0) Aspartate Amino Transf (AST/SGOT) 27 U/L (15-37) Alanine Aminotransferase (ALT/SGPT) 24 U/L (14-59) Alkaline Phosphatase 76 U/L (46-116) Total Protein 7.0 g/dL (6.4-8.2) Albumin 4.0 g/dL (3.4-5.0) Albumin/Globulin Ratio 1.3 (1.0-1.7) Laboratory Tests Test 02/15/20 18:05 02/16/20 06:35 White Blood Count 4.3 x10^3/uL (4.0-11.0) Red Blood Count 3.86 x10^6/uL (3.50-5.40) Hemoglobin 12.3 g/dL (12.0-15.5) Hematocrit 35.5 % (36.0-47.0) Mean Corpuscular Volume 92 fL (79-100) Mean Corpuscular Hemoglobin 32 pg (25-35) Mean Corpuscular Hemoglobin Concent 35 g/dL (31-37) Red Cell Distribution Width 26.5 % (11.5-14.5) Platelet Count 286 x10^3/uL (140-400) Neutrophils (%) (Auto) 76 % (31-73) Lymphocytes (%) (Auto) 13 % (24-48) Monocytes (%) (Auto) 10 % (0-9) Eosinophils (%) (Auto) 1 % (0-3) Basophils (%) (Auto) 1 % (0-3) Neutrophils # (Auto) 3.3 x10^3/uL (1.8-7.7) Lymphocytes # (Auto) 0.6 x10^3/uL (1.0-4.8) Monocytes # (Auto) 0.4 x10^3/uL (0.0-1.1) Eosinophils # (Auto) 0.0 x10^3/uL (0.0-0.7) Basophils # (Auto) 0.0 x10^3/uL (0.0-0.2) Platelet Estimate Adequate (ADEQUATE) Anisocytosis Marked Schistocytes Few Sodium Level 127 mmol/L (136-145) 131 mmol/L (136-145) Potassium Level 2.8 mmol/L (3.5-5.1) 3.5 mmol/L (3.5-5.1) Chloride Level 90 mmol/L (98-107) 96 mmol/L (98-107) Carbon Dioxide Level 29 mmol/L (21-32) 30 mmol/L (21-32) Anion Gap 8 (6-14) 5 (6-14) Blood Urea Nitrogen 24 mg/dL (7-20) 17 mg/dL (7-20) Creatinine 0.8 mg/dL (0.6-1.0) 0.5 mg/dL (0.6-1.0) Estimated GFR (Cockcroft-Gault) 68.7 118.1 BUN/Creatinine Ratio 30 (6-20) Glucose Level 110 mg/dL (70-99) 76 mg/dL (70-99) Calcium Level 9.0 mg/dL (8.5-10.1) 8.5 mg/dL (8.5-10.1) Magnesium Level 1.7 mg/dL (1.8-2.4) Iron Level 92 ug/dL (50-170) Total Iron Binding Capacity 350 ug/dL (250-450) Iron Saturation 26 % (15-34) Total Bilirubin 0.3 mg/dL (0.2-1.0) Aspartate Amino Transf (AST/SGOT) 27 U/L (15-37) Alanine Aminotransferase (ALT/SGPT) 24 U/L (14-59) Alkaline Phosphatase 76 U/L (46-116) Total Protein 7.0 g/dL (6.4-8.2) Albumin 4.0 g/dL (3.4-5.0) Albumin/Globulin Ratio 1.3 (1.0-1.7) Assessment/Plan Assessment/Plan 84 year old female with short gut syndrome, weight loss, cachectic; a picc line was placed today to initiate TPN. Placement of a portacath would require OR intervention with anesthesia. There are some unique challenges including her severe cachexia, marked kyphosis, and absolute lack of subcutaneous fat. She would be a poor OR candidate and I would have concerns regarding wound healing and possible port erosion in the skin given the lack of SQ tissue. Would recommend initiating TPN by PICC line in hopes of improving her nutritional status some. If able to restore some weight over the next few weeks would then be safer for operative placement of a portacath. I can review with IR for their opinion as well. Thanks for the consult! MEI RILEY MD Feb 16, 2020 12:08
--- NOTE | 2020-02-16 12:39 | RAD ---
EXAM: CT Abdomen and Pelvis with IV contrast INDICATION: Reason: weight loss, h/o ovarian cancer, abdominal swelling / Spl. Instructions: inj 75ml omni 300, 30 ml omni 240 po / History: TECHNIQUE: Multi-detector row CT images were acquired from the lung bases through the abdomen and pelvis with the use of IV contrast. Sagittal and coronal images were acquired from the transaxial data. All CT scans performed at this facility utilize dose optimization techniques as appropriate to the exam, including the following: Automated exposure control and adjustment of the mA and/or KV according to patient size (this includes techniques or standardized protocols for targeted exams where dose is indication/reason for exam). IV CONTRAST: Administered ORAL CONTRAST: Administered COMPARISON: Abdomen pelvis CT with oral and IV contrast 02/13/2012 FINDINGS: LOWER CHEST: Unremarkable LIVER: Multiple hepatic cysts, similar to prior. BILIARY SYSTEM: Gallbladder is unremarkable. Bile ducts are not dilated. PANCREAS: Unremarkable SPLEEN: Unremarkable ADRENALS: No adrenal masses are apparent. The adrenals are somewhat obscured by low soft tissue contrast in the retroperitoneum. KIDNEYS & URETERS: Bilateral hydronephrosis and proximal hydroureter without radiopaque stones. BLADDER: Marked distention. No wall thickening, masses or intraluminal stones identified. REPRODUCTIVE ORGANS: Absent uterus. Ovaries not seen and likely absent as well. GASTROINTESTINAL: The stomach, small bowel, and colon are unremarkable. Appendix is not well seen. There are no findings of acute appendicitis. MESENTERY/PERITONEUM/RETROPERITONEUM: Unremarkable. Previously evident large mass in the posterior cul-de-sac has since resolved. No significant ascites or abdominal fluid collection. VASCULAR: Scattered arterial calcifications. LYMPH NODES: No adenopathy OSSEOUS & SOFT TISSUES: Generalized osteopenia. T12 vertebroplasty. No acute or aggressive appearing osseous lesions noted. Patient shows evidence of having lost weight since the last exam. IMPRESSION: No findings suspicious for recurrent malignancy in the abdomen or pelvis. Electronically signed by: Carina Whitney MD (02/16/2020 12:36 PM) [id number]
[2020-02-16] MEDS: TPN PER PHARMACY MC PRN (14:06)
--- NOTE | 2020-02-16 14:14 | NUR ---
SS following up with discharge planning. Referral received for home TPN. SS phoned and faxed clinical and face sheet to [employer], ; fax [phone], to get benefit information for home TPN. SS will continue to follow for discharge planning.
--- NOTE | 2020-02-16 14:16 | NUR ---
Pharmacy TPN Dosing Note S: MARTINASONJALALI Lauren is a 84 year old F Currently receiving Central Continuous TPN started 02/16/20 B:Pertinent PMH: short gut; manlourishment Height: 4 feet, 10 inches Weight: 30.0 kg Current diet: LABS: Sodium: 131 Potassium: 3.5 Chloride: 96 Calcium: 8.5 Corrected Calcium: 8.50 Magnesium: 1.7 CO2: 30 SCr: 0.5 Glucose: 76 Albumin: 4.0 AST: 27 ALT: 24 TPN FORMULA: TPN TYPE: Central Continuous AMINO ACIDS: 60 gm DEXTROSE: 195 gm LIPIDS: 20 gm SODIUM CHLORIDE: 90 mEq POTASSIUM CHLORIDE: 50 mEq POTASSIUM PHOSPHATE: 13.6 mmol MAGNESIUM: 10 mEq CALCIUM: 10 mEq MULTIPLE VITAMIN: 10 ml TRACE ELEMENTS: 1 ml(s) TPN PLAN: Initiate house formula TPN R: Begin TPN Will monitor electrolytes, glucose, and tolerance to TPN. Nakia Wilson [facility], 02/16/20 [id number]
[2020-02-16 15:00] VITALS: BP 118/58
--- NOTE | 2020-02-16 16:13 | NUR ---
SS following up with discharge planning. SS received notification from [employer] [facility] stating that pt is covered at 100% for home TPN and supplies. Physician notified. SS will continue to follow for discharge planning.
[2020-02-16] MEDS: ACETAMINOPHEN 325 MG TABLET. PO PRN ×2 (18:42→20:56)
[2020-02-16] MEDS: DOCUSATE SODIUM 100 MG CAPSULE. PO PRN (18:42)
[2020-02-16] MEDS ORDERED: POLYETHYLENE GLYCOL 3350 17 GM PACKET. PO PRN (19:45)
[2020-02-16 19:46] VITALS: BP 110/52
[2020-02-16] MEDS: amLODIPine BESYLATE 10 MG TABLET PO SCH (20:53)
[2020-02-16] MEDS: MIRTAZAPINE 7.5 MG TABLET. PO SCH (20:53)
[2020-02-16] MEDS ORDERED: TOTAL PARENTERAL NUTRITION 1,424.9614 ML, AMINO ACID 15% 60 GM, DEXTROSE 70 % IN WATER ... IV SCH (22:00)
[2020-02-16 23:23] VITALS: BP_SYST 105; BP_DIAS 34; BP_DIAS 50
[2020-02-17 03:51] VITALS: BP 109/51
[2020-02-17 06:10] LABS: CALCIUM 7.8 mg/dL (8.5-10.1); CREATININE 0.5 mg/dL (0.6-1.0); GFR 118.1; MAGNESIUM 1.9 mg/dL (1.8-2.4); PHOSPHORUS 1.9 mg/dL (2.6-4.7); POTASSIUM 4.2 mmol/L (3.5-5.1)
[2020-02-17 07:00] VITALS: BP 110/55
[2020-02-17] MEDS: ASCORBIC ACID 500 MG TABLET PO SCH (08:44)
[2020-02-17] MEDS: CHOLECALCIFEROL (VITAMIN D3) 5,000 UNIT CAPSULE PO SCH (08:44)
[2020-02-17] MEDS: OMEGA-3 FATTY ACIDS/FISH OIL 1,000 MG CAPSULE. PO SCH (08:44)
[2020-02-17] MEDS: ASPIRIN CHEWABLE 81 MG TABLET. PO SCH (08:45)
[2020-02-17] MEDS: MAGNESIUM OXIDE 400 MG TABLET PO SCH (08:45)
[2020-02-17] MEDS: DOCUSATE SODIUM 100 MG CAPSULE. PO PRN (08:49)
--- NOTE | 2020-02-17 10:23 | PDOC ---
Date of Service: DATE: 02/17/20 TIME: 10:18 Subjective: Subjective: Doing okay - ate breakfast, feels bloated, hasn't stooled since Friday she thinks. Took Colace a couple times and Miralax x 1. Wondering when she might get to go home. Objective: Objective: D/w Dr. Dyer. D/w Dr. Smith yesterday - recommends home TPN. Reviewed surgery note - currently not a good candidate for port. Per nurse - ?DC today - plans for home health. Vital Signs: Vital Signs Date Time Temp Pulse Resp B/P (MAP) Pulse Ox O2 Delivery O2 Flow Rate FiO2 02/17/20 07:00 97.6 70 16 110/55 (73) 97 Room Air 97.6 Labs: Laboratory Tests Test 02/17/20 05:40 Sodium Level 134 mmol/L Potassium Level 4.2 mmol/L Chloride Level 102 mmol/L Carbon Dioxide Level 31 mmol/L Anion Gap 1 Blood Urea Nitrogen 18 mg/dL Creatinine 0.5 mg/dL Estimated GFR (Cockcroft-Gault) 118.1 Glucose Level 97 mg/dL Calcium Level 7.8 mg/dL Phosphorus Level 1.9 mg/dL Magnesium Level 1.9 mg/dL Triglycerides Level 28 mg/dL Imaging: CT A/P IMPRESSION: No findings suspicious for recurrent malignancy in the abdomen or pelvis. (Noted hepatic cysts) PE: GEN: NAD, frail LUNGS: CTAB HEART: RRR ABD: more distended today, few quiet BS, some non-specific discomfort NEURO/PSYCH: A & O 3 A/P: Hyponatremia, hypokalemia - better Weight loss, bloating, short bowel syndrome -- ?TPN management plans Will d/w Dr. Worthington. Justicifation of Admission Dx: Justifications for Admission: Justification of Admission Dx: Yes CHF: Sev. Electrolyte Abnormal NENO FAY Feb 17, 2020 10:23
--- NOTE | 2020-02-17 10:32 | PDOC ---
DATE OF SERVICE DATE: 02/17/20 TIME: 10:25 SUBJECTIVE ROS Stable, only concern she has this morning is Constipation She got Colace this morning, No other complaints. TPN since yesterday OBJECTIVE Vital Signs Vital Signs Date Time Temp Pulse Resp B/P (MAP) Pulse Ox O2 Delivery O2 Flow Rate FiO2 02/17/20 07:00 97.6 70 16 110/55 (73) 97 Room Air 97.6 I & 0 Intake and Output 02/17/20 07:00 Intake Total 450 ml Output Total 2900 ml Balance -2450 ml Intake Oral 450 ml Output Urine Total 2900 ml PHYSICAL EXAM Physical Exam General: No acute distress HEENT: Atraumatic, PERRLA, EOMI, Mucous membr. moist/pink Neck Supple Lungs: Clear to auscultation, Non labored Heart: S1S2, RRR, Abdomen: Normal bowel sounds, Soft, No tenderness, No hepatosplenomegaly, No masses Extremities: No clubbing, No cyanosis, No edema, Normal pulses, No tenderness/swelling Skin: No rashes Neuro: Grossly normal Psych/Mental Status: Mental status NL, Mood NL DIAGNOSIS/ASSESSMENT Assessment & Plan Hyponatremia - likely nutritional with malabsorption, Dehydration Improving, mildly low Currently on TPN , adjust as needed HyPhosphatemia- Replace in TPN as well as IV Bolus Dw Pharmacist HypoKalemia - Normal Unintentional weight loss - concerning for malabsorption vs malignancy. CT abdomen with IV- unremarkable per report Bilateral hydronephrosis and proximal hydroureter without radiopaque stones,Marked distension of Urinary Bladder -? Chronic No prior imaging at [facility] for comparison . UOP good . Bladder scan prn . If concerns consult Urology as OP HTN - On Amlodipine, stable H/o CVA Severe protein calorie malnutrition - by weight loss and muscle mass loss criteria, will likely require TPN and children's entertainer assistance H/o ovarian cancer Short bowel syndrome - recent surgery for ischemic bowel 10 months ago Anemia - s/p iron infusion recently Failure to thrive Abdominal swelling - GI consulted COMMENT/RELEVANT DATA Meds Current Medications Medications (Trade) Dose Ordered Sig/Yeimi Start Time Stop Time Status Last Admin Dose Admin Acetaminophen (Tylenol) 650 mg PRN Q4HRS PRN 02/15/20 17:00 02/16/20 20:56 650 MG Amlodipine Besylate (Norvasc) 10 mg HS 02/15/20 21:00 02/16/20 20:53 10 MG Ascorbic Acid (Vitamin C) 1,000 mg DAILY 02/16/20 09:00 02/17/20 08:44 1,000 MG Aspirin (Aspirin Chewable) 81 mg DAILY 02/16/20 09:00 02/17/20 08:45 81 MG Docusate Sodium (Colace) 100 mg PRN BID PRN 02/15/20 17:00 02/17/20 08:49 100 MG Fish Oil (Fish Oil) 1,000 mg DAILY 02/16/20 09:00 02/17/20 08:44 1,000 MG Guaifenesin (Robitussin) 200 mg PRN Q4HRS PRN 02/15/20 17:00 Info (Tpn Per Pharmacy) 1 each PRN DAILY PRN 02/16/20 13:45 02/16/20 14:06 1 EACH Iohexol (Omnipaque 240 Mg/ml) 30 ml 1X ONCE 02/16/20 08:00 02/16/20 08:01 DC 02/16/20 08:00 30 ML Iohexol (Omnipaque 300 Mg/ml) 75 ml 1X ONCE 02/16/20 08:00 02/16/20 08:01 DC 02/16/20 09:20 75 ML Lidocaine HCl (Buffered Lidocaine 1%) 6 ml 1X ONCE 02/16/20 09:45 02/16/20 09:46 DC 02/16/20 09:56 2 ML Magnesium Oxide (Magnesium Oxide) 400 mg DAILY 02/16/20 09:00 02/17/20 08:45 400 MG Magnesium Sulfate 50 ml @ 25 mls/hr 1X ONCE 02/15/20 21:00 02/15/20 22:59 DC 02/16/20 03:39 25 MLS/HR Mirtazapine (Remeron) 7.5 mg QHS 02/15/20 21:00 02/16/20 20:53 7.5 MG Non-Formulary Medication (Ubidecarenone (Coq-10)) 100 mg DAILY 02/16/20 09:00 UNV Ondansetron HCl (Zofran) 4 mg PRN Q4HRS PRN 02/15/20 17:00 Polyethylene Glycol (miraLAX PACKET) 17 gm PRN DAILY PRN 02/16/20 19:45 02/16/20 20:56 17 GM Potassium Chloride/Water 100 ml @ 100 mls/hr Q1H 02/15/20 19:30 02/15/20 23:29 DC 02/16/20 11:20 100 MLS/HR Potassium Chloride (Klor-Con) 40 meq 1X ONCE 02/16/20 11:15 02/16/20 11:16 DC 02/16/20 11:23 40 MEQ Sodium Chloride 90 meq/Potassium Chloride 50 meq/ Potassium Phosphate 13.6 mmol/Magnesium Sulfate 10 meq/ Calcium Gluconate 10 meq/ Multivitamins 10 ml/Chromium/ Copper/Manganese/ Seleni/Zn 1 ml/ Total Parenteral Nutrition/Amino Acids/Dextrose/ Fat Emulsion Intravenous 1,512 ml @ 63 mls/hr TPN CONT 02/16/20 22:00 02/17/20 21:59 02/16/20 20:53 63 MLS/HR Vitamin D (Vitamin D3) 5,000 unit DAILY 02/16/20 09:00 02/17/20 08:44 5,000 UNIT Lab Laboratory Tests Test 02/17/20 05:40 Sodium Level 134 mmol/L (136-145) Potassium Level 4.2 mmol/L (3.5-5.1) Chloride Level 102 mmol/L (98-107) Carbon Dioxide Level 31 mmol/L (21-32) Anion Gap 1 (6-14) Blood Urea Nitrogen 18 mg/dL (7-20) Creatinine 0.5 mg/dL (0.6-1.0) Estimated GFR (Cockcroft-Gault) 118.1 Glucose Level 97 mg/dL (70-99) Calcium Level 7.8 mg/dL (8.5-10.1) Phosphorus Level 1.9 mg/dL (2.6-4.7) Magnesium Level 1.9 mg/dL (1.8-2.4) Triglycerides Level 28 mg/dL (0-150) Results All relevant outside records, renal labs, imaging studies, telemetry/EKG's were reviewed. Justicifation of Admission Dx: Justifications for Admission: Justification of Admission Dx: Yes CHF: Sev. Electrolyte Abnormal ANGELA ECKERT MD Feb 17, 2020 10:32
[2020-02-17 10:53] VITALS: BP 111/56
[2020-02-17] MEDS ORDERED: SODIUM PHOSPHATE 15 MMOL in IV NS 100 ML IV ONE (11:00)
[2020-02-17] MEDS: TPN PER PHARMACY MC PRN ×2 (11:07→15:03)
--- NOTE | 2020-02-17 11:16 | NUR ---
Pharmacy TPN Dosing Note S: LALI QUEEN is a 84 year old F Currently receiving Central Continuous TPN started 02/16/20 B:Pertinent PMH: short gut; manlourishment Height: 4 feet, 10 inches Weight: 32.1 kg Current diet: Regular LABS: Sodium: 134 Potassium: 4.2 Chloride: 102 Calcium: 7.8 Corrected Calcium: 7.80 Magnesium: 1.9 CO2: 31 SCr: 0.5 Glucose: 97 Albumin: 4.0 AST: 27 ALT: 24 TPN FORMULA: TPN TYPE: Central Continuous AMINO ACIDS: 30 gm DEXTROSE: 150 gm LIPIDS: 10 gm SODIUM CHLORIDE: 90 mEq POTASSIUM CHLORIDE: 40 mEq POTASSIUM PHOSPHATE: 20.4 mmol MAGNESIUM: 10 mEq CALCIUM: 8 mEq MULTIPLE VITAMIN: 10 ml TRACE ELEMENTS: 1 ml(s) TPN PLAN: Macronutrients reduced per truck trailer final inspector rec's. Sodium phos 15mmol IVPB bolus to be given today. Potassium phos increased to 20.4mmol and KCl reduced to 40mEq to account for added potassium. Calcium reduced for calcium/phos solubility R: Change TPN per plan and ordered formula Will monitor electrolytes, glucose, and tolerance to TPN. Nakia Wilson RPH, 02/17/20 1116 Addendum: 02/17/20 at 1504 by Nakia Wilson RPH PHA lipids increased to 20g d/t solubility issues per TPN compounding company
--- NOTE | 2020-02-17 11:18 | NUR ---
SS following up with discharge planning. SS reviewed pt chart and discussed with pt RN. Pt is currently on room air. Pt covered at 100% for TPN through [employer], ; fax [phone]. Pt agreeable to home TPN. Pt requesting [facility], ; fax [phone]. Referral phoned and faxed to [facility]. Physician notified. SS will continue to follow for discharge planning.
--- NOTE | 2020-02-17 13:56 | PDOC ---
[employer] PROGRESS NOTE Date of Service DOS: DATE: 02/17/20 TIME: 13:55 Chief Complaint Chief Complaint A/P: Hyponatremia - likely nutritional with malabsorption, improved Hypokalemia - replacing Hypomagnesemia - replacing Unintentional weight loss - concerning for malabsorption vs malignancy. CT with no new abnormalities H/o CVA - few residual deficits, will cont ASA, have PT and OT assessment as she has been progressively more weak lately. Severe protein calorie malnutrition - by weight loss and muscle mass loss criteria, will likely require TPN and community planning technician assistance HTN - cont home CCB H/o ovarian cancer - will order [facility] records Short bowel syndrome - working diagnosis given her recent surgery for ischemic bowel 10 months ago Anemia - iron replaced, likely also with anemia of chronic disease/inflammation Failure to thrive in adult - see above Weakness and debility - partially nutritionally related, needs rehabilitation Abdominal swelling - stable liver cysts. GI consulted FEN - Regular diet, TPN infusions PPX - lovenox CODE - DNR/DNI Dispo - inpatient for above History of Present Illness History of Present Illness Ms Arellano is an 84-year-old female with past medical history of CVA, HTN, ovarian cancer, short bowel syndrome who is being directly admitted to [facility] from her [employer]older [employer] office for significant weight loss and acute hyponatremia as well as abdominal swelling. She c/o worsening weakness which has acutely worsened just over the past 2 weeks. Her sodium level on 02/03/2020 was 134 and on a repeat visit to gastroenterology she was just informed of a sodium level of 127 today and noted with a weight of 68 pounds which is a 6 pound weight loss from 02/03/2020. She was also noted with ferritin in the 1000s and She underwent emergency ex lap, reduction of internal hernia, small bowel resection, cecectomy, ileocecal anastomosis and abdominal washout on 04/28/2019 at [facility] for small bowel obstruction with ischemic colitis. Since that time she is continued to lose weight and struggles with malabsorption symptoms including iron deficiency anemia not tolerating oral iron therapy requiring 2 recent iron infusions. She has been increasing her PO intake, eats fish, avocado, protein shakes, and continues to lose weight. Due to her abdominal swelling she has been taking miralax to decrease her bloating, but at the same time complained to GI about diarrhea. Due to concern for pancreatic insufficiency in December she was started on Creon and did not feel that it was helping and she continue to lose weight. GI is recommending GATTEX, but primarily needs evaluation for TPN infusions and is being admitted for acute hyponatremia and failure to thrive. 02/15: Potassium was 2.8, improved to 3.5 today, magnesium 1.7 was replaced. Sodium 131 today. She is feeling improved. To PICC line today. Voracious appetite. CT by my read appears to show some nodules in the liver and a very large fluid collection in the right middle aspect of the liver. Afebrile. Labs overall improved with exception of phosphorus 1.9. Tolerating TPN well. She notes she is much more weak today than yesterday cannot get up without full assistance. Has an excellent appetite. She does not wish for skilled placement wishes to go home with home health. No cough or shortness of breath. Vitals/I&O Vitals/I&O: Vital Signs Date Time Temp Pulse Resp B/P (MAP) Pulse Ox O2 Delivery O2 Flow Rate FiO2 02/17/20 10:53 98.0 88 16 111/56 (74) 95 Room Air 98.0 I & O 02/16/20 02/16/20 02/17/20 15:00 23:00 07:00 Intake Total 300 ml 150 ml Output Total 700 ml 1200 ml 1000 ml Balance -700 ml -900 ml -850 ml Physical Exam General: Alert, Oriented X3, Cooperative, Other (cachectic) Heart: Regular rate Abdomen: Soft (very thin) Extremities: No clubbing, No cyanosis Skin: No rashes Labs Labs: Laboratory Tests Test 02/17/20 05:40 Sodium Level 134 mmol/L (136-145) Potassium Level 4.2 mmol/L (3.5-5.1) Chloride Level 102 mmol/L (98-107) Carbon Dioxide Level 31 mmol/L (21-32) Anion Gap 1 (6-14) Blood Urea Nitrogen 18 mg/dL (7-20) Creatinine 0.5 mg/dL (0.6-1.0) Estimated GFR (Cockcroft-Gault) 118.1 Glucose Level 97 mg/dL (70-99) Calcium Level 7.8 mg/dL (8.5-10.1) Phosphorus Level 1.9 mg/dL (2.6-4.7) Magnesium Level 1.9 mg/dL (1.8-2.4) Triglycerides Level 28 mg/dL (0-150) Comment Review of Relevant I have reviewed the following items yuni (where applicable) has been applied. Medications: Current Medications Medications (Trade) Dose Ordered Sig/Yeimi Route PRN Reason Start Time Stop Time Status Last Admin Dose Admin Sodium Chloride 90 meq/Potassium Chloride 50 meq/ Potassium Phosphate 13.6 mmol/Magnesium Sulfate 10 meq/ Calcium Gluconate 10 meq/ Multivitamins 10 ml/Chromium/ Copper/Manganese/ Seleni/Zn 1 ml/ Total Parenteral Nutrition/Amino Acids/Dextrose/ Fat Emulsion Intravenous 1,512 ml @ 63 mls/hr TPN CONT IV 02/16/20 22:00 02/17/20 21:59 02/16/20 20:53 Polyethylene Glycol (miraLAX PACKET) 17 gm PRN DAILY PRN PO CONSTIPATION 02/16/20 19:45 02/16/20 20:56 Sodium Phosphate 15 mmol/Sodium Chloride 105 ml @ 105 mls/hr 1X ONCE IV 02/17/20 11:00 02/17/20 11:59 DC 02/17/20 12:14 Justicifation of Admission Dx: Justifications for Admission: Justification of Admission Dx: Yes CHF: Sev. Electrolyte Abnormal MAIDAFECIRO Collins MD Feb 17, 2020 13:56
[2020-02-17] MEDS ORDERED: Tpn Per Pharmacy MC (14:04)
--- NOTE | 2020-02-17 14:15 | SNU/HH DC ---
DISCHARGE WITH HOME HEALTH DISCHARGE INFORMATION: Discharge Date: Feb 17, 2020 Final Diagnosis: Malabsorption Condition on Discharge: Stable CODE STATUS: Code Status: DNR/DNI HOME HEALTH: Face to Face: I certify this patient is under my care and that I, or a nurse practitioner or physician's surgeon assistant working with me, had a face to face encounter that meets the physician face to face encounter requirements with this patient on 02/17/2020. Medical Complications: Other (Short gut syndrome) Senior Living For: IV Infusion Therapy, Medication Management RN For Eval/Treatment: Yes Physical Therapy For: Evalulation/Treatment Occupational Therapy For: Evaluation/Treatment Pt Meets Homebound Status: Extreme weakness w/ amb. POST DISCHARGE ORDERS: Activity Instructions for Disc: Activity as tolerated Weight Bearing Status after Di: As tolerated DIET AFTER DISCHARGE: Regular Wound/Incision Care: Change dressing CHECKS AFTER DISCHARGE: Checks after discharge: Check blood press - daily, Check your Temp as needed FOLLOW-UP: PCP to follow Home Health: Dr. Jessica Arias Follow up with: Dr. Rosaura Smith Additional Instructions: BMP weekly, Mag and Phos weekly Triglycerides weekly RESULTS to: Dr. Jessica Arias [facility] [address] [place] [address] Pager: TPN: TPN FORMULA: Central Continuous AMINO ACIDS: 30 gm DEXTROSE: 150 gm LIPIDS: 10 gm SODIUM CHLORIDE: 90 mEq POTASSIUM CHLORIDE: 40 mEq POTASSIUM PHOSPHATE: 20.4 mmol MAGNESIUM: 10 mEq CALCIUM: 8 mEq MULTIPLE VITAMIN: 10 ml TRACE ELEMENTS: 1 ml(s) TREATMENT/EQUIPMENT ORDERS: Infusion Equipment, home use: PICC Line CERTIFICATION STATEMENT: Certification Statement: Certification Statement: Based on the above finding, I certify that this patient is confined to the home and needs intermittent intermediate care, physical therapy and/or speech therapy, or continues to need occupational therapy.~ This patient is under my care, and I have initiated the establishment of the plan of care.~ This patient will be followed by myself or a community physician who will periodically review the plan of care. Home Meds Active Scripts [Tpn Per Pharmacy] 1 EACH EACH No Conflict Check, 1 EACH MC PRN DAILY PRN for S EE COMMENTS Prov:CIRO SERNA MD 02/17/20 Reported Medications Acetaminophen (ACETAMINOPHEN) 500 Mg Tablet, 500 MG PO TID PRN for PAIN, TAB 02/15/20 Ibuprofen (IBUPROFEN) 400 Mg Tablet, 400 MG PO PRN Q6HRS PRN for INFLAMMATION, TAB 02/15/20 Magnesium Oxide (MAGNESIUM) 250 Mg Tablet, 250 MG PO DAILY for supplement, TAB 02/15/20 Amlodipine Besylate (AMLODIPINE BESYLATE) 10 Mg Tablet, 10 MG PO HS for hypertension, TAB 02/15/20 Aspirin (ASPIRIN) 81 Mg Tab.chew, 81 MG PO DAILY, TAB.CHEW 10/03/16 Polyethylene Glycol 3350 (MIRALAX) 17 Gm Powd.pack, 1 PKT PO DAILY, PKT 01/03/15 Cyanocobalamin (Vitamin B-12) (CYANOCOBALAMIN INJECTION) 1,000 Mcg/1 Ml Vial, 1000 MCG IJ 2-3 weeks, VIAL 01/03/15 Ribose (D-RIBOSE) 1 Gm Powder, 1 GM MC 01/03/15 [pecta 501-c] No Conflict Check 01/03/15 [complete b complex] No Conflict Check 01/03/15 [super k with K2] No Conflict Check 01/03/15 Antiox#12/Om3/Dha/Epa/Lut/Zean (MACULAR BENEFITS COMBO PACK) 1 Each Combo..pkg, 1 EACH PO 01/03/15 Lactobacillus Combo No.10 (PROBIOTIC) 1 Each Capsule, 1 EACH PO 01/03/15 Ascorbic Acid (VITAMIN C) 1,000 Mg Tablet, 1000 MG PO DAILY 01/03/15 Cholecalciferol (Vitamin D3) (VITAMIN D3) 4,000 Unit Capsule, 5000 UNIT PO DAILY for supplement 01/03/15 Ubidecarenone (COQ-10) 100 Mg Capsule, 100 MG PO DAILY 01/03/15 Delancey-3 Fatty Acids (SUPER OMEGA-3) 1,000 Mg Capsule, 1000 MG PO DAILY 01/03/15 CIRO SERNA MD Feb 17, 2020 14:15
[2020-02-17 15:00] VITALS: BP 127/63
--- NOTE | 2020-02-17 15:24 | PDOC ---
RAMIN VASQUEZ SENIOR APPLICATIONS ENGINEER 02/17/20 1524: SURGICAL PROGRESS NOTE DATE: 02/17/20 TIME: 15:22 Subjective TPN going possible home tomorrow worried about bowels Vital Signs Vital Signs Date Time Temp Pulse Resp B/P (MAP) Pulse Ox O2 Delivery O2 Flow Rate FiO2 02/17/20 15:00 97.8 89 18 127/63 (84) 98 Room Air 97.8 I&O Intake and Output 02/17/20 07:00 Intake Total 450 ml Output Total 2900 ml Balance -2450 ml Intake Oral 450 ml Output Urine Total 2900 ml General: Alert, Oriented X3, Cooperative Abdomen: Soft, No tenderness Labs Laboratory Tests Test 02/15/20 18:05 02/16/20 06:35 02/17/20 05:40 White Blood Count 4.3 x10^3/uL (4.0-11.0) Red Blood Count 3.86 x10^6/uL (3.50-5.40) Hemoglobin 12.3 g/dL (12.0-15.5) Hematocrit 35.5 % (36.0-47.0) Mean Corpuscular Volume 92 fL (79-100) Mean Corpuscular Hemoglobin 32 pg (25-35) Mean Corpuscular Hemoglobin Concent 35 g/dL (31-37) Red Cell Distribution Width 26.5 % (11.5-14.5) Platelet Count 286 x10^3/uL (140-400) Neutrophils (%) (Auto) 76 % (31-73) Lymphocytes (%) (Auto) 13 % (24-48) Monocytes (%) (Auto) 10 % (0-9) Eosinophils (%) (Auto) 1 % (0-3) Basophils (%) (Auto) 1 % (0-3) Neutrophils # (Auto) 3.3 x10^3/uL (1.8-7.7) Lymphocytes # (Auto) 0.6 x10^3/uL (1.0-4.8) Monocytes # (Auto) 0.4 x10^3/uL (0.0-1.1) Eosinophils # (Auto) 0.0 x10^3/uL (0.0-0.7) Basophils # (Auto) 0.0 x10^3/uL (0.0-0.2) Platelet Estimate Adequate (ADEQUATE) Anisocytosis Marked Schistocytes Few Sodium Level 127 mmol/L (136-145) 131 mmol/L (136-145) 134 mmol/L (136-145) Potassium Level 2.8 mmol/L (3.5-5.1) 3.5 mmol/L (3.5-5.1) 4.2 mmol/L (3.5-5.1) Chloride Level 90 mmol/L (98-107) 96 mmol/L (98-107) 102 mmol/L (98-107) Carbon Dioxide Level 29 mmol/L (21-32) 30 mmol/L (21-32) 31 mmol/L (21-32) Anion Gap 8 (6-14) 5 (6-14) 1 (6-14) Blood Urea Nitrogen 24 mg/dL (7-20) 17 mg/dL (7-20) 18 mg/dL (7-20) Creatinine 0.8 mg/dL (0.6-1.0) 0.5 mg/dL (0.6-1.0) 0.5 mg/dL (0.6-1.0) Estimated GFR (Cockcroft-Gault) 68.7 118.1 118.1 BUN/Creatinine Ratio 30 (6-20) Glucose Level 110 mg/dL (70-99) 76 mg/dL (70-99) 97 mg/dL (70-99) Calcium Level 9.0 mg/dL (8.5-10.1) 8.5 mg/dL (8.5-10.1) 7.8 mg/dL (8.5-10.1) Magnesium Level 1.7 mg/dL (1.8-2.4) 1.9 mg/dL (1.8-2.4) Iron Level 92 ug/dL (50-170) Total Iron Binding Capacity 350 ug/dL (250-450) Iron Saturation 26 % (15-34) Total Bilirubin 0.3 mg/dL (0.2-1.0) Aspartate Amino Transf (AST/SGOT) 27 U/L (15-37) Alanine Aminotransferase (ALT/SGPT) 24 U/L (14-59) Alkaline Phosphatase 76 U/L (46-116) Total Protein 7.0 g/dL (6.4-8.2) Albumin 4.0 g/dL (3.4-5.0) Albumin/Globulin Ratio 1.3 (1.0-1.7) Phosphorus Level 1.9 mg/dL (2.6-4.7) Triglycerides Level 28 mg/dL (0-150) Laboratory Tests Test 02/17/20 05:40 Sodium Level 134 mmol/L (136-145) Potassium Level 4.2 mmol/L (3.5-5.1) Chloride Level 102 mmol/L (98-107) Carbon Dioxide Level 31 mmol/L (21-32) Anion Gap 1 (6-14) Blood Urea Nitrogen 18 mg/dL (7-20) Creatinine 0.5 mg/dL (0.6-1.0) Estimated GFR (Cockcroft-Gault) 118.1 Glucose Level 97 mg/dL (70-99) Calcium Level 7.8 mg/dL (8.5-10.1) Phosphorus Level 1.9 mg/dL (2.6-4.7) Magnesium Level 1.9 mg/dL (1.8-2.4) Triglycerides Level 28 mg/dL (0-150) Assessment/Plan TPN, can FU in clinic to discuss possible port if weight improves Justicifation of Admission Dx: Justifications for Admission: Justification of Admission Dx: Yes CHF: Sev. Electrolyte Abnormal MEI RILEY MD 02/18/20 1152: SURGICAL PROGRESS NOTE Assessment/Plan Agree with above RAMIN VASQUEZ SENIOR APPLICATIONS ENGINEER Feb 17, 2020 15:24 MEI RILEY MD Feb 18, 2020 11:52
--- NOTE | 2020-02-17 15:43 | NUR ---
SS following up with discharge planning. [facility] contacted SS and reported that they cannot accept pt due to staffing. SS met with pt and discussed. Pt reported having no other preference of company and agreeable to [facility], ; fax [phone]. Referral phoned and faxed to [facility]. Order received for TPN. SS phoned and faxed order to [facility], ; fax [phone]. SS will continue to follow for discharge planning.
[2020-02-17 19:00] VITALS: BP 135/64
[2020-02-17] MEDS: ACETAMINOPHEN 325 MG TABLET. PO PRN (20:41)
[2020-02-17] MEDS: PSYLLIUM HUSK (SUGAR FREE) 1 PKT PACKET PO SCH (20:41)
[2020-02-17] MEDS: amLODIPine BESYLATE 10 MG TABLET PO SCH (20:42)
[2020-02-17] MEDS: MIRTAZAPINE 7.5 MG TABLET. PO SCH (20:42)
[2020-02-17] MEDS ORDERED: [UNRECOGNIZED DRUG - OTHER] IV SCH (22:00)
[2020-02-17] MEDS ORDERED: DEXTROSE 70% IV SCH (22:00)
[2020-02-17] MEDS ORDERED: TOTAL PARENTERAL NUTRITION IV SCH (22:00)
[2020-02-17] MEDS ORDERED: AMINO ACID IV SCH (22:00)
[2020-02-17 23:00] VITALS: BP 116/53
[2020-02-18 03:00] VITALS: BP 110/52
[2020-02-18 06:39] LABS: CALCIUM 8.1 mg/dL (8.5-10.1); CREATININE 0.3 mg/dL (0.6-1.0); PHOSPHORUS 2.4 mg/dL (2.6-4.7); POTASSIUM 4.3 mmol/L (3.5-5.1)
[2020-02-18 07:00] VITALS: BP 146/66
[2020-02-18] MEDS: ASCORBIC ACID 500 MG TABLET PO SCH (08:35)
[2020-02-18] MEDS: MAGNESIUM OXIDE 400 MG TABLET PO SCH (08:35)
[2020-02-18] MEDS: ASPIRIN CHEWABLE 81 MG TABLET. PO SCH (08:35)
[2020-02-18] MEDS: CHOLECALCIFEROL (VITAMIN D3) 5,000 UNIT CAPSULE PO SCH (08:35)
[2020-02-18] MEDS: PSYLLIUM HUSK (SUGAR FREE) 1 PKT PACKET PO SCH (08:35)
[2020-02-18] MEDS: OMEGA-3 FATTY ACIDS/FISH OIL 1,000 MG CAPSULE. PO SCH (08:35)
[2020-02-18] MEDS: TPN PER PHARMACY MC PRN (10:07)
--- NOTE | 2020-02-18 10:09 | NUR ---
Pharmacy TPN Dosing Note S: LALI QUEEN is a 84 year old F Currently receiving Central Continuous TPN started 02/16/20 B:Pertinent PMH: short gut; malnourishment LABS: Sodium: 135 Potassium: 4.3 Chloride: 102 Calcium: 8.1 Corrected Calcium: 8.10 Magnesium: 2.0 CO2: 29 SCr: 0.3 Glucose: 84 Albumin: 4.0 AST: 27 ALT: 24 TPN FORMULA: TPN TYPE: Central Continuous AMINO ACIDS: 30 gm DEXTROSE: 150 gm LIPIDS: 20 gm SODIUM CHLORIDE: 90 mEq SODIUM ACETATE: - mEq SODIUM PHOSPHATE: - mmol POTASSIUM CHLORIDE: 40 mEq POTASSIUM ACETATE: - mEq POTASSIUM PHOSPHATE: 20.4 mmol MAGNESIUM: 10 mEq CALCIUM: 8 mEq INSULIN: - units MULTIPLE VITAMIN: 10 ml TRACE ELEMENTS: 1 ml(s) TPN PLAN: 02/17 cont same TPN R: Continue TPN Will monitor electrolytes, glucose, and tolerance to TPN. TRACEY FERNANDEZ [facility], 02/18/20 1005
--- NOTE | 2020-02-18 10:41 | PDOC ---
[employer] PROGRESS NOTE Date of Service DOS: DATE: 02/18/20 TIME: 10:39 Chief Complaint Chief Complaint A/P: Hyponatremia - likely nutritional with malabsorption, improved Hypokalemia - replacing Hypomagnesemia - replacing Unintentional weight loss - concerning for malabsorption vs malignancy. CT with no new abnormalities H/o CVA - few residual deficits, will cont ASA, have PT and OT assessment as she has been progressively more weak lately. Severe protein calorie malnutrition - by weight loss and muscle mass loss criteria, will likely require TPN and cigarette examiner assistance HTN - cont home CCB H/o ovarian cancer - will order [facility] records Short bowel syndrome - working diagnosis given her recent surgery for ischemic bowel 10 months ago Anemia - iron replaced, likely also with anemia of chronic disease/inflammation Failure to thrive in adult - see above Weakness and debility - partially nutritionally related, needs rehabilitation Abdominal swelling - stable liver cysts. 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 She c/o worsening weakness which has acutely worsened just over the past 2 weeks. Her sodium level on 02/03/2020 was 134 and on a repeat visit to gastroenterology she was just informed of a sodium level of 127 today and noted with a weight of 68 pounds which is a 6 pound weight loss from 02/03/2020. She was also noted with ferritin in the 1000s and She underwent emergency ex lap, reduction of internal hernia, small bowel resection, cecectomy, ileocecal anastomosis and abdominal washout on 04/28/2019 at [facility] for small bowel obstruction with ischemic colitis. Since that time she is continued to lose weight and struggles with malabsorption symptoms including iron deficiency anemia not tolerating oral iron therapy requiring 2 recent iron infusions. She has been increasing her PO intake, eats fish, avocado, protein shakes, and continues to lose weight. Due to her abdominal swelling she has been taking miralax to decrease her bloating, but at the same time complained to GI about diarrhea. Due to concern for pancreatic insufficiency in December she was started on Creon and did not feel that it was helping and she continue to lose weight. GI is recommending GATTEX, but primarily needs evaluation for TPN infusions and is being admitted for acute hyponatremia and failure to thrive. 02/15: Potassium was 2.8, improved to 3.5 today, magnesium 1.7 was replaced. Sodium 131 today. She is feeling improved. To PICC line today. Voracious appetite. CT by my read appears to show some nodules in the liver and a very large fluid collection in the right middle aspect of the liver. 02/16: Afebrile. Labs overall improved with exception of phosphorus 1.9. Tolerating TPN well. She notes she is much more weak today than yesterday cannot get up without full assistance. Has an excellent appetite. She does not wish for skilled placement wishes to go home with home health. No cough or shor tness of breath. Phos to 2.4. Mag to 2. Feeling stronger today. PICC in good position. Plan for home with home health and home infusions of TPN 1200cc for 18 hours per day. Vitals/I&O Vitals/I&O: Vital Signs Date Time Temp Pulse Resp B/P (MAP) Pulse Ox O2 Delivery O2 Flow Rate FiO2 02/18/20 07:35 Room Air 02/18/20 07:00 97.6 88 16 146/66 (92) 96 97.6 I & O 02/17/20 02/17/20 02/18/20 15:00 23:00 07:00 Intake Total 350 ml 350 ml Output Total 300 ml 250 ml 1000 ml Balance 50 ml 100 ml -1000 ml Physical Exam General: Alert, Oriented X3, Cooperative Heart: Regular rate Abdomen: Soft, No tenderness Extremities: No clubbing, No cyanosis Skin: No rashes Labs Labs: Laboratory Tests Test 02/18/20 06:10 Sodium Level 135 mmol/L (136-145) Potassium Level 4.3 mmol/L (3.5-5.1) Chloride Level 102 mmol/L (98-107) Carbon Dioxide Level 29 mmol/L (21-32) Anion Gap 4 (6-14) Blood Urea Nitrogen 18 mg/dL (7-20) Creatinine 0.3 mg/dL (0.6-1.0) Estimated GFR (Cockcroft-Gault) 213.0 Glucose Level 84 mg/dL (70-99) Calcium Level 8.1 mg/dL (8.5-10.1) Phosphorus Level 2.4 mg/dL (2.6-4.7) Magnesium Level 2.0 mg/dL (1.8-2.4) Comment Review of Relevant I have reviewed the following items yuni (where applicable) has been applied. Medications: Current Medications Medications (Trade) Dose Ordered Sig/Yeimi Route PRN Reason Start Time Stop Time Status Last Admin Dose Admin Sodium Phosphate 15 mmol/Sodium Chloride 105 ml @ 105 mls/hr 1X ONCE IV 02/17/20 11:00 02/17/20 11:59 DC 02/17/20 12:14 Sodium Chloride 90 meq/Potassium Chloride 40 meq/ Potassium Phosphate 20.4 mmol/Magnesium Sulfate 10 meq/ Calcium Gluconate 8 meq/ Multivitamins 10 ml/Chromium/ Copper/Manganese/ Seleni/Zn 1 ml/ Total Parenteral Nutrition/Amino Acids/Dextrose/ Fat Emulsion Intravenous 1,200 ml @ 50 mls/hr TPN CONT IV 02/17/20 22:00 02/18/20 21:59 02/17/20 20:42 Psyllium Hydrophilic Mucilloid (Metamucil Fiber Packet) 1 pkt DAILY PO 02/17/20 21:00 02/18/20 08:35 Justicifation of Admission Dx: Justifications for Admission: Justification of Admission Dx: Yes CHF: Sev. Electrolyte Abnormal CIRO SERNA MD Feb 18, 2020 10:41
--- NOTE | 2020-02-18 10:42 | PDOC3 ---
Discharge Summary Visit Information Date of Admission: Feb 15, 2020 Date of Discharge: Feb 18, 2020 Admitting Diagnosis: Short bowel syndrome Final Diagnosis Severe protein calorie malnutrition Brief Hospital Course Allergies Allergies Coded Allergies Type Severity Reaction Last Updated Verified No Known Drug Allergies 12/29/19 No Vital Signs Vital Signs Date Time Temp Pulse Resp B/P (MAP) Pulse Ox O2 Delivery O2 Flow Rate FiO2 02/18/20 07:35 Room Air 02/18/20 07:00 97.6 88 16 146/66 (92) 96 97.6 Lab Results Laboratory Tests Test 02/17/20 05:40 02/18/20 06:10 Sodium Level 134 mmol/L (136-145) 135 mmol/L (136-145) Potassium Level 4.2 mmol/L (3.5-5.1) 4.3 mmol/L (3.5-5.1) Chloride Level 102 mmol/L (98-107) 102 mmol/L (98-107) Carbon Dioxide Level 31 mmol/L (21-32) 29 mmol/L (21-32) Anion Gap 1 (6-14) 4 (6-14) Blood Urea Nitrogen 18 mg/dL (7-20) 18 mg/dL (7-20) Creatinine 0.5 mg/dL (0.6-1.0) 0.3 mg/dL (0.6-1.0) Estimated GFR (Cockcroft-Gault) 118.1 213.0 Glucose Level 97 mg/dL (70-99) 84 mg/dL (70-99) Calcium Level 7.8 mg/dL (8.5-10.1) 8.1 mg/dL (8.5-10.1) Phosphorus Level 1.9 mg/dL (2.6-4.7) 2.4 mg/dL (2.6-4.7) Magnesium Level 1.9 mg/dL (1.8-2.4) 2.0 mg/dL (1.8-2.4) Triglycerides Level 28 mg/dL (0-150) Laboratory Tests Test 02/18/20 06:10 Sodium Level 135 mmol/L (136-145) Potassium Level 4.3 mmol/L (3.5-5.1) Chloride Level 102 mmol/L (98-107) Carbon Dioxide Level 29 mmol/L (21-32) Anion Gap 4 (6-14) Blood Urea Nitrogen 18 mg/dL (7-20) Creatinine 0.3 mg/dL (0.6-1.0) Estimated GFR (Cockcroft-Gault) 213.0 Glucose Level 84 mg/dL (70-99) Calcium Level 8.1 mg/dL (8.5-10.1) Phosphorus Level 2.4 mg/dL (2.6-4.7) Magnesium Level 2.0 mg/dL (1.8-2.4) Brief Hospital Course Ms Arellano is an 84-year-old female with past medical history of CVA, HTN, ovarian cancer, short bowel syndrome who is being directly admitted to [facility] from her vp informatics office for significant weight loss and acute hyponatremia as well as abdominal swelling. She c/o worsening weakness which has acutely worsened just over the past 2 weeks. Her sodium level on 02/03/2020 was 134 and on a repeat visit to gastroenterology she was just informed of a sodium level of 127 today and noted with a weight of 68 pounds which is a 6 pound weight loss from 02/03/2020. She was also noted with ferritin in the 1000s and She underwent emergency ex lap, reduction of internal hernia, small bowel resection, cecectomy, ileocecal anastomosis and abdominal washout on 04/28/2019 at [facility] for small bowel obstruction with ischemic colitis. Since that time she is continued to lose weight and struggles with malabsorption symptoms including iron deficiency anemia not tolerating oral iron therapy requi ring 2 recent iron infusions. She has been increasing her PO intake, eats fish, avocado, protein shakes, and continues to lose weight. Due to her abdominal swelling she has been taking miralax to decrease her bloating, but at the same time complained to GI about diarrhea. Due to concern for pancreatic insufficiency in December she was started on Creon and did not feel that it was helping and she continue to lose weight. GI is recommending GATTEX, but primarily needs evaluation for TPN infusions and is being admitted for acute hyponatremia and failure to thrive. 02/15: Potassium was 2.8, improved to 3.5 today, magnesium 1.7 was replaced. Sodium 131 today. She is feeling improved. To PICC line today. Voracious appetite. CT by my read appears to show some nodules in the liver and a very large fluid collection in the right middle aspect of the liver. 02/16: Afebrile. Labs overall improved with exception of phosphorus 1.9. Tolerating TPN well. She notes she is much more weak today than yesterday cannot get up without full assistance. Has an excellent appetite. She does not wish for skilled placement wishes to go home with home health. No cough or shortness of breath. Phos to 2.4. Mag to 2. Feeling stronger today. PICC in good position. Plan for home with home health and home infusions of TPN 1200cc for 18 hours per day. Consults: GI, Nephrology, General surgery Problem list: Hyponatremia - likely nutritional with malabsorption, improved Hypokalemia - replacing Hypomagnesemia - replacing Unintentional weight loss - concerning for malabsorption vs malignancy. CT with no new abnormalities H/o CVA - few residual deficits, will cont ASA, have PT and OT assessment as she has been progressively more weak lately. Severe protein calorie malnutrition - by weight loss and muscle mass loss criteria, will likely require TPN and data center technician assistance HTN - cont home CCB H/o ovarian cancer - will order [facility] records Short bowel syndrome - working diagnosis given her recent surgery for ischemic bowel 10 months ago Anemia - iron replaced, likely also with anemia of chronic disease/inflammation Failure to thrive in adult - see above Weakness and debility - partially nutritionally related, needs rehabilitation Abdominal swelling - stable liver cysts. GI consulted Greater than 30 minutes spent on discharge home with home health Discharge Information Condition at Discharge: Improved Follow Up: Weeks (1) Disposition/Orders: D/C to Home w/ HH Scheduled Amlodipine Besylate (Amlodipine Besylate) 10 Mg Tablet, 10 MG PO HS for hypertension, (Reported) Entered as Reported by: ALEJANDRA CERVANTES on 02/15/20 1626 Last Action: Continued on 02/15/201699 by CIRO SERNA MD Ascorbic Acid (Vitamin C) 1,000 Mg Tablet, 1,000 MG PO DAILY, (Reported) Entered as Reported by: GINO MARSHALL on 01/03/15 0728 Last Action: Converted on 02/15/201699 by CIRO SERNA MD Aspirin (Aspirin) 81 Mg Tab.chew, 81 MG PO DAILY, (Reported) Entered as Reported by: ZULEMA SARABIA on 10/03/16 1005 Last Action: Continued on 02/15/201699 by CIRO SERNA MD Cholecalciferol (Vitamin D3) (Vitamin D3) 4,000 Unit Capsule, 5,000 UNIT PO DAILY for supplement, (Reported) Entered as Reported by: GINO MARSHALL on 01/03/15744 Last Action: Converted on 02/15/201699 by CIRO SERNA MD Cyanocobalamin (Vitamin B-12) (Cyanocobalamin Injection) 1,000 Mcg/1 Ml Vial, 1,000 MCG IJ 2-3 weeks, (Reported) Entered as Reported by: GINO MARSHALL on 01/03/15744 Last Action: Reviewed on 02/15/201628 by ALEJANDRA CERVANTES Magnesium Oxide (Magnesium) 250 Mg Tablet, 250 MG PO DAILY for supplement, (Reported) Entered as Reported by: ALEJANDRA CERVANTES on 02/15/201625 Last Action: Converted on 02/15/201699 by CIRO SERNA MD Adelanto-3 Fatty Acids (Super [place]elanto-3) 1,000 Mg Capsule, 1,000 MG PO DAILY, (Reported) Entered as Reported by: GINO MARSHALL on 01/03/15744 Last Action: Converted on 02/15/201699 by CIRO SERNA MD Polyethylene Glycol 3350 (Miralax) 17 Gm Powd.pack, 1 PKT PO DAILY, (Reported) Entered as Reported by: GINO MARSHALL on 01/03/15744 Ubidecarenone (Coq-10) 100 Mg Capsule, 100 MG PO DAILY, (Reported) Entered as Reported by: GINO MARSHALL on 01/03/15744 Last Action: Converted on 02/15/201699 by CIRO SERNA MD Scheduled PRN Acetaminophen (Acetaminophen) 500 Mg Tablet, 500 MG PO TID PRN for PAIN, (Reported) Entered as Reported by: ALEJANDRA CERVANTES on 02/15/201626 Last Action: New Order on 02/15/201626 by ALEJANDRA CERVANTES Ibuprofen (Ibuprofen) 400 Mg Tablet, 400 MG PO PRN Q6HRS PRN for INFLAMMATION, (Reported) Entered as Reported by: ALEJANDRA CERVANTES on 02/15/201626 Last Action: New Order on 02/15/201626 by ALEJANDRA CERVANTES [Tpn Per Pharmacy] 1 EACH EACH, 1 EACH MC PRN DAILY PRN for SEE COMMENTS Prescribed by: CIRO SERNA MD on 02/17/20 1404 Miscellaneous Medications Antiox#12/Om3/Dha/Epa/Lut/Zean (Macular Benefits Combo Pack) 1 Each Combo..pkg, 1 EACH PO, (Reported) Entered as Reported by: GINO MARSHALL on 01/03/15744 Lactobacillus Combo No.10 (Probiotic) 1 Each Capsule, 1 EACH PO, (Reported) Entered as Reported by: GINO MARSHALL on 01/03/15744 Last Action: Reviewed on 02/15/201628 by ALEJANDRA CERVANTES Ribose (D-Ribose) 1 Gm Powder, 1 GM MC, (Reported) Entered as Reported by: GINO MARSHALL on 01/03/15744 [complete b complex] , (Reported) Entered as Reported by: GINO MARSHALL on 01/03/15744 [pecta 501-c] , (Reported) Entered as Reported by: IGNO MARSHALL on 01/03/15744 [super k with K2] , (Reported) Entered as Reported by: GINO MARSHALL on 01/03/15744 Justicifation of Admission Dx: Justifications for Admission: Justification of Admission Dx: Yes CHF: Sev. Electrolyte Abnormal CIRO SERNA MD Feb 18, 2020 10:42
[2020-02-18 10:52] VITALS: BP 126/59
--- NOTE | 2020-02-18 11:06 | PDOC ---
Date of Service: DATE: 02/18/20 TIME: 11:03 Subjective: Subjective: I saw her earlier walking in the [place] with therapy. Feeling anxious today. Objective: Objective: D/w nurse - plans to DC on home TPN, had a VERY large bowel movement, said she had questions about taking supplements - ?absorbed Vital Signs: Vital Signs Date Time Temp Pulse Resp B/P (MAP) Pulse Ox O2 Delivery O2 Flow Rate FiO2 02/18/20 10:52 97.7 98 16 126/59 (81) 98 Room Air 97.7 Labs: Laboratory Tests Test 02/18/20 06:10 Sodium Level 135 mmol/L Potassium Level 4.3 mmol/L Chloride Level 102 mmol/L Carbon Dioxide Level 29 mmol/L Anion Gap 4 Blood Urea Nitrogen 18 mg/dL Creatinine 0.3 mg/dL Estimated GFR (Cockcroft-Gault) 213.0 Glucose Level 84 mg/dL Calcium Level 8.1 mg/dL Phosphorus Level 2.4 mg/dL Magnesium Level 2.0 mg/dL PE: GEN: NAD - walking w/ walker, therapy present - frail, thin LUNGS: clear HEART: RRR ABD: less distended NEURO/PSYCH: A & O 3 A/P: Short bowel syndrome -- Dc plans as above, will review her question re: supplements w/ Dr. Worthington. Justicifation of Admission Dx: Justifications for Admission: Justification of Admission Dx: Yes CHF: Sev. Electrolyte Abnormal NENO FAY Feb 18, 2020 11:06
--- NOTE | 2020-02-18 11:15 | NUR ---
SS following up with discharge planning. SS reviewed pt chart and discussed with pt RN. Discharge orders for home healthcare received. Discharge orders phoned and faxed to [facility], ; fax [phone]. TPN arranged through [facility], ; fax [phone]. Pt's RN notified.
--- NOTE | 2020-02-18 13:50 | PDOC ---
DATE OF SERVICE DATE: 02/18/20 TIME: 13:48 SUBJECTIVE ROS Stable, OBJECTIVE Vital Signs Vital Signs Date Time Temp Pulse Resp B/P (MAP) Pulse Ox O2 Delivery O2 Flow Rate FiO2 02/18/20 10:52 97.7 98 16 126/59 (81) 98 Room Air 97.7 I & 0 Intake and Output 02/18/20 07:00 Intake Total 700 ml Output Total 1550 ml Balance -850 ml Intake Oral 700 ml Output Urine Total 1550 ml PHYSICAL EXAM Physical Exam General: No acute distress HEENT: Atraumatic, PERRLA, EOMI, Mucous membr. moist/pink Neck Supple Lungs: Clear to auscultation, Non labored Heart: S1S2, RRR, Abdomen: Normal bowel sounds, Soft, No tenderness, No hepatosplenomegaly, No masses Extremities: No clubbing, No cyanosis, No edema, Normal pulses, No tenderness/swelling Skin: No rashes Neuro: Grossly normal Psych/Mental Status: Mental status NL, Mood NL No Gamez DIAGNOSIS/ASSESSMENT Assessment & Plan Hyponatremia - likely nutritional with malabsorption, Dehydration Improving, Currently on TPN , adjust as needed HyPhosphatemia- Replaced in TPN and IV Bolus Improved, Mildly low, adjust in TPN HypoKalemia - Normal Unintentional weight loss - concerning for malabsorption vs malignancy. CT abdomen with IV- unremarkable per report Bilateral hydronephrosis and proximal hydroureter without radiopaque stones,Marked distension of Urinary Bladder -? Chronic No prior imaging at [facility] for comparison . UOP good . Bladder scan prn . If concerns consult Urology as OP HTN - On Amlodipine, stable H/o CVA Severe protein calorie malnutrition - by weight loss and muscle mass loss criteria, will likely require TPN and manager body assistance H/o ovarian cancer Short bowel syndrome - recent surgery for ischemic bowel 10 months ago Anemia - s/p iron infusion recently Failure to thrive Abdominal swelling - GI consulted Anticiapting dc today with TPN COMMENT/RELEVANT DATA Meds Current Medications Medications (Trade) Dose Ordered Sig/Yeimi Start Time Stop Time Status Last Admin Dose Admin Acetaminophen (Tylenol) 650 mg PRN Q4HRS PRN 02/15/20 17:00 02/17/20 20:41 650 MG Amlodipine Besylate (Norvasc) 10 mg HS 02/15/20 21:00 02/17/20 20:42 10 MG Ascorbic Acid (Vitamin C) 1,000 mg DAILY 02/16/20 09:00 02/18/20 08:35 1,000 MG Aspirin (Aspirin Chewable) 81 mg DAILY 02/16/20 09:00 02/18/20 08:35 81 MG Docusate Sodium (Colace) 100 mg PRN BID PRN 02/15/20 17:00 02/17/20 08:49 100 MG Fish Oil (Fish Oil) 1,000 mg DAILY 02/16/20 09:00 02/18/20 08:35 1,000 MG Guaifenesin (Robitussin) 200 mg PRN Q4HRS PRN 02/15/20 17:00 Info (Tpn Per Pharmacy) 1 each PRN DAILY PRN 02/16/20 13:45 02/18/20 10:07 1 EACH Iohexol (Omnipaque 240 Mg/ml) 30 ml 1X ONCE 02/16/20 08:00 02/16/20 08:01 DC 02/16/20 08:00 30 ML Iohexol (Omnipaque 300 Mg/ml) 75 ml 1X ONCE 02/16/20 08:00 02/16/20 08:01 DC 02/16/20 09:20 75 ML Lidocaine HCl (Buffered Lidocaine 1%) 6 ml 1X ONCE 02/16/20 09:45 02/16/20 09:46 DC 02/16/20 09:56 2 ML Magnesium Oxide (Magnesium Oxide) 400 mg DAILY 02/16/20 09:00 02/18/20 08:35 400 MG Magnesium Sulfate 50 ml @ 25 mls/hr 1X ONCE 02/15/20 21:00 02/15/20 22:59 DC 02/16/20 03:39 25 MLS/HR Mirtazapine (Remeron) 7.5 mg QHS 02/15/20 21:00 02/17/20 20:42 7.5 MG Non-Formulary Medication (Ubidecarenone (Coq-10)) 100 mg DAILY 02/16/20 09:00 UNV Ondansetron HCl (Zofran) 4 mg PRN Q4HRS PRN 02/15/20 17:00 Polyethylene Glycol (miraLAX PACKET) 17 gm PRN DAILY PRN 02/16/20 19:45 02/16/20 20:56 17 GM Potassium Chloride/Water 100 ml @ 100 mls/hr Q1H 02/15/20 19:30 02/15/20 23:29 DC 02/16/20 11:20 100 MLS/HR Potassium Chloride (Klor-Con) 40 meq 1X ONCE 02/16/20 11:15 02/16/20 11:16 DC 02/16/20 11:23 40 MEQ Psyllium Hydrophilic Mucilloid (Metamucil Fiber Packet) 1 pkt DAILY 02/17/20 21:00 02/18/20 08:35 1 PKT Sodium Chloride 90 meq/Potassium Chloride 40 meq/ Potassium Phosphate 20.4 mmol/Magnesium Sulfate 10 meq/ Calcium Gluconate 8 meq/ Multivitamins 10 ml/Chromium/ Copper/Manganese/ Seleni/Zn 1 ml/ Total Parenteral Nutrition/Amino Acids/Dextrose/ Fat Emulsion Intravenous 1,200 ml @ 50 mls/hr TPN CONT 02/18/20 22:00 02/19/20 21:59 Sodium Chloride 90 meq/Potassium Chloride 50 meq/ Potassium Phosphate 13.6 mmol/Magnesium Sulfate 10 meq/ Calcium Gluconate 10 meq/ Multivitamins 10 ml/Chromium/ Copper/Manganese/ Seleni/Zn 1 ml/ Total Parenteral Nutrition/Amino Acids/Dextrose/ Fat Emulsion Intravenous 1,512 ml @ 63 mls/hr TPN CONT 02/16/20 22:00 02/17/20 21:59 DC 02/16/20 20:53 63 MLS/HR Sodium Phosphate 15 mmol/Sodium Chloride 105 ml @ 105 mls/hr 1X ONCE 02/17/20 11:00 02/17/20 11:59 DC 02/17/20 12:14 105 MLS/HR Vitamin D (Vitamin D3) 5,000 unit DAILY 02/16/20 09:00 02/18/20 08:35 5,000 UNIT Lab Laboratory Tests Test 02/18/20 06:10 Sodium Level 135 mmol/L (136-145) Potassium Level 4.3 mmol/L (3.5-5.1) Chloride Level 102 mmol/L (98-107) Carbon Dioxide Level 29 mmol/L (21-32) Anion Gap 4 (6-14) Blood Urea Nitrogen 18 mg/dL (7-20) Creatinine 0.3 mg/dL (0.6-1.0) Estimated GFR (Cockcroft-Gault) 213.0 Glucose Level 84 mg/dL (70-99) Calcium Level 8.1 mg/dL (8.5-10.1) Phosphorus Level 2.4 mg/dL (2.6-4.7) Magnesium Level 2.0 mg/dL (1.8-2.4) Results All relevant outside records, renal labs, imaging studies, telemetry/EKG's were reviewed. Justicifation of Admission Dx: Justifications for Admission: Justification of Admission Dx: Yes CHF: Sev. Electrolyte Abnormal ANGELA ECKERT MD Feb 18, 2020 13:50
[2020-02-18 14:49] VITALS: BP 135/66
--- NOTE | 2020-02-18 15:42 | NUR ---
Discharge: Delivery from infusion company of TPN, pump and supplies...to patients room. Nurse with [facility] set up patients TPN infusion. All belongings with patient. PICC line clean dry and intact with TPN infusing. Reviewed discharge teaching verbal and written. Reviewed electrolytes, PICC line, TPN, malnutrition, eMAR, ect. Patient verbalized understanding Waiting on patients son.
--- NOTE | 2020-02-18 17:06 | NUR ---
Discharge reviewed with patient and son. All belongings with patient. Patient assisted off of unit via wheelchair accompanied by son and nurse.
[2020-02-18] MEDS ORDERED: [UNRECOGNIZED DRUG - OTHER] IV SCH (22:00)
[2020-02-18] MEDS ORDERED: TOTAL PARENTERAL NUTRITION IV SCH (22:00)
[2020-02-18] MEDS ORDERED: AMINO ACID IV SCH (22:00)
[2020-02-18] MEDS ORDERED: DEXTROSE 70% IV SCH (22:00)
== END 2020-02-18 17:05 | disposition home health service (06) | DRG 391 ==
LOC: 2 NORTH 15:48
PROVIDERS: ADMIT Internal Medicine; ATTEND Internal Medicine
PROC: 02HV33Z Insertion of Infusion Device into Superior Vena Cava, Percutaneous Approach (ICD-10-PCS; principal; 2020-02-16)
PROC: B5181ZA Fluoroscopy of Superior Vena Cava using Low Osmolar Contrast, Guidance (ICD-10-PCS; 2020-02-16)
PROC: B548ZZA Ultrasonography of Superior Vena Cava, Guidance (ICD-10-PCS; 2020-02-16)
DX: K91.2 Postsurgical malabsorption, not elsewhere classified (principal); E43 Unspecified severe protein-calorie malnutrition; E87.1 Hypo-osmolality and hyponatremia; R64 Cachexia; Z68.1 Body mass index [BMI] 19.9 or less, adult; C44.91 Basal cell carcinoma of skin, unspecified; D50.9 Iron deficiency anemia, unspecified; D63.8 Anemia in other chronic diseases classified elsewhere; E83.42 Hypomagnesemia; E87.6 Hypokalemia; F41.9 Anxiety disorder, unspecified; I11.0 Hypertensive heart disease with heart failure; I50.9 Heart failure, unspecified; K46.9 Unspecified abdominal hernia without obstruction or gangrene; K76.89 Other specified diseases of liver; M40.209 Unspecified kyphosis, site unspecified; M81.0 Age-related osteoporosis without current pathological fracture; R62.7 Adult failure to thrive; Z66 Do not resuscitate; Z82.3 Family history of stroke; Z82.49 Family history of ischemic heart disease and other diseases of the circulatory system; Z85.43 Personal history of malignant neoplasm of ovary; Z86.73 Personal history of transient ischemic attack (TIA), and cerebral infarction without residual deficits; Z90.49 Acquired absence of other specified parts of digestive tract; Z90.710 Acquired absence of both cervix and uterus; K21.9 Gastro-esophageal reflux disease without esophagitis
CPT/HCPCS: 36415; 36573; 74177; 77001; 80048; 80053; 83540; 83550; 83735; 84100; 84478; 85025; C1751; C1892; J0610; J3475; J3480; J3490; J7030; Q9966; Q9967; 97116-GP; 97530-GO; 97535-GO; G0378

== ENCOUNTER 2020-03-03 20:17 | Inpatient (IN) | payer MEDICARE ==
[~2020-03-03] VITALS: Ht 134.6 cm; Wt 34.5 kg
[~2020-03-03 20:17] MED LIST changes: +ACET500T68 PO; +IBUP-1027 PO; +MAGN250T10 PO; +Tpn Per Pharmacy MC
[2020-03-03 21:32] LABS: BASO # 0.1 x10^3/uL (0.0-0.2); BASO % 2 % (0-3); EOS # 0.1 x10^3/uL (0.0-0.7); EOS % 2 % (0-3); HEMATOCRIT 30.3 % (36.0-47.0); HEMOGLOBIN 10.4 g/dL (12.0-15.5); LYMPH # 0.6 x10^3/uL (1.0-4.8); LYMPH % 17 % (24-48); MEAN CORPUSCULAR HEMOGLOBIN 34 pg (25-35); MEAN CORPUSCULAR HGB CONC 34 g/dL (31-37); MEAN CORPUSCULAR VOLUME 98 fL (79-100); MONO # 0.5 x10^3/uL (0.0-1.1); MONO % 15 % (0-9); NEUT # 2.2 x10^3/uL (1.8-7.7); NEUT % 64 % (31-73); PLATELET COUNT 423 x10^3/uL (140-400); RED CELL DISTRIBUTION WIDTH 24.7 % (11.5-14.5); WHITE BLOOD COUNT 3.4 x10^3/uL (4.0-11.0)
--- NOTE | 2020-03-03 21:33 | RAD ---
AP portable chest radiograph 03/03/2020 Clinical History: Ovarian cancer. Weight loss. An AP erect portable digital radiograph of the chest was obtained. A right arm PICC is seen. The tip of this catheter extends to overlie the superior vena cava. The patient is post multilevel thoracic kyphoplasty. The cardiac silhouette is mildly enlarged. The thoracic aorta is tortuous. Atherosclerotic calcification of the thoracic aorta is seen. No acute pulmonary infiltrate is noted. No pneumothorax or pleural effusion is seen. There is diffuse osteopenia the visualized bony structures. Degenerative changes are seen involving the thoracic spine IMPRESSION: No acute abnormality is seen. Electronically signed by: Rajesh Agarwal MD (03/03/2020 9:31 PM) [id number]
[2020-03-03 21:40] LABS: CALCIUM 8.8 mg/dL (8.5-10.1); CREATININE 0.3 mg/dL (0.6-1.0)
[2020-03-03 21:46] LABS: ALBUMIN 3.4 g/dL (3.4-5.0); ALBUMIN/GLOBULIN RATIO 1.2 (1.0-1.7); TOTAL BILIRUBIN 0.3 mg/dL (0.2-1.0); TOTAL PROTEIN 6.2 g/dL (6.4-8.2)
[2020-03-03 21:50] LABS: ACANTHOCYTES OCC; ANISOCYTOSIS MOD; HYPOCHROMIA SLIGHT; PLT ESTIMATE ADEQUATE (ADEQUATE); POIKILOCYTOSIS SLIGHT; SCHISTOCYTES OCC
[2020-03-03] MEDS ORDERED: IV NORMAL SALINE 250ML 250 ML IV ONE (22:00)
[2020-03-04] VITALS (7 sets, daily range): BP systolic 126–141; BP diastolic 59–66
--- NOTE | 2020-03-04 01:10 | NUR ---
Patient arrived to unit at approx 0030 accompanied by environmental science technician. VS stable, assessment complete. Pt came in with home TPN currently running- will continue to run until 0600, daughter will bring in next doeses of TPN for pharmacy to label. Patient was tearful, and stated "Dr. Smith sent me here because i am near , and need emergent fluids or i will , call ezequiel and ask her she knows what i need". Called patients daughter Ezequiel @ [phone], Ezequiel stated that patient has been extremely forgetful and confused this week stating "she even forgot how to use the phone and TV remote. There has also been alot of crying and screaming". Per daughter pt has lost 5 pounds in the past 3 days. daughter also reports many liquid stools x3 days and that patient has been on Xifaxan (rifaximin), per pt daughter Dr. Smith told them to hold this medication for now. Dr. smith consulted. Home medications reviewed with pt daughter. Pt currently lives at home with her daughter and [facility]. Pt has no complaints of pain and is restinf comfortably on RA. Bed in low locked position, call light in reach, reminded patient to call for assistance before ambulating. Bed alarm on. Will continue to monitor.
[2020-03-04 04:12] LABS: BILIRUBIN,URINE NEGATIVE (NEG); CLARITY,URINE CLEAR; COLOR,URINE YELLOW; NITRITE,URINE NEGATIVE (NEG); PROTEIN,URINE NEGATIVE (NEG-TRACE); UROBILINOGEN,URINE 0.2 mg/dL (0.2 mg/dL)
[2020-03-04 04:33] LABS: SQUAMOUS EPITHELIAL CELL,UR FEW /LPF
[2020-03-04 04:34] LABS: BACTERIA,URINE 0 /HPF (0-FEW); RBC,URINE 0 /HPF (0-2); WBC,URINE OCC /HPF (0-4)
--- NOTE | 2020-03-04 04:52 | PHYS DOC ---
Past Medical History Past Medical History: Anemia, Cancer, Other Additional Past Medical Histor: HYPONATREMIA, ACQUIRED SHORT BOWEL SYNDROME, IS CHEMIC COLITIS, OVARIAN CA Past Surgical History: Other Additional Past Surgical Histo: BOWEL RESECTION, PICC LINE, HERNIA REPAIR, Smoking Status: Never Smoker Alcohol Use: None General Adult EDM: Chief Complaint: ALTERED MENTAL STATUS HPI: HPI: Patient is an 84-year-old female who presents to the emergency room with diarrhea, weight loss, intermittent confusion. Patient has a history of failure to thrive. She is currently on TPN. She is also on antibiotics through PICC line for bacteremia. Since she started the antibiotic she has been having diarrhea. She has lost 5 pounds this week. She is following with [facility]. Dr. Smith sent her here for evaluation and admission. Diarrhea is foul-smelling. She denies any fever. Daughter states that she is having episodes of confusion and has not been able to eat anything. They are very concerned about her weight loss. Review of Systems: Review of Systems: General: Denies fever, chills, sweats, fatigue Eyes: Denies drainage, blurred vision, eye redness HENT: Denies rhinorrhea, sore throat, earache Respiratory: Denies cough, shortness of breath, wheezing Cardiac: Denies edema, palpitations, chest pain GI: Denies abdominal pain, Nausea, vomiting reports diarrhea, anorexia, weight loss MSK: Denies back pain, neck pain Skin: Denies rash, jaundice Neuro: Denies headache, dizziness Psychiatric: Denies SI/HI Heart Score: Risk Factors: Risk Factors: DM, Current or recent (<one month) smoker, HTN, HLP, family history of CAD, obesity. Risk Scores: Score 0 - 3: 2.5% MACE over next 6 weeks - Discharge Home Score 4 - 6: 20.3% MACE over next 6 weeks - Admit for Clinical Observation Score 7 - 10: 72.7% MACE over next 6 weeks - Early Invasive Strategies Current Medications: Current Medications Medications (Trade) Dose Ordered Sig/Yeimi Start Time Stop Time Status Last Admin Dose Admin Sodium Chloride 250 ml @ 250 mls/hr 1X ONCE 03/03/20 22:00 03/03/20 22:59 DC 03/03/20 22:34 250 MLS/HR Allergies: Allergies: Allergies Coded Allergies Type Severity Reaction Last Updated Verified No Known Drug Allergies 12/29/19 No Physical Exam: PE: General: Awake, alert, NAD. cachectic. Cooperative PICC line in place HEENT: Atraumatic, EOMI, PERRL, airway patent, dry oral mucosa Neck: Supple, trachea midline Respiratory: CTA bilaterally, normal effort, no wheezing/crackles CV: RRR, no murmur, cap refill <2 GI: Soft, nondistended, nontender, no masses MSK: No obvious deformities Skin: Warm, dry, intact Neuro: A&O x3, speech NL, sensory and motor grossly intact, no focal deficits Psych: Normal affect, normal mood, not suicidal or homicidal Current Patient Data: Labs: Laboratory Tests Test 03/03/20 21:18 03/04/20 04:00 White Blood Count 3.4 x10^3/uL (4.0-11.0) L Red Blood Count 3.10 x10^6/uL (3.50-5.40) L Hemoglobin 10.4 g/dL (12.0-15.5) L Hematocrit 30.3 % (36.0-47.0) L Mean Corpuscular Volume 98 fL (79-100) Mean Corpuscular Hemoglobin 34 pg (25-35) Mean Corpuscular Hemoglobin Concent 34 g/dL (31-37) Red Cell Distribution Width 24.7 % (11.5-14.5) H Platelet Count 423 x10^3/uL (140-400) H Neutrophils (%) (Auto) 64 % (31-73) Lymphocytes (%) (Auto) 17 % (24-48) L Monocytes (%) (Auto) 15 % (0-9) H Eosinophils (%) (Auto) 2 % (0-3) Basophils (%) (Auto) 2 % (0-3) Neutrophils # (Auto) 2.2 x10^3/uL (1.8-7.7) Lymphocytes # (Auto) 0.6 x10^3/uL (1.0-4.8) L Monocytes # (Auto) 0.5 x10^3/uL (0.0-1.1) Eosinophils # (Auto) 0.1 x10^3/uL (0.0-0.7) Basophils # (Auto) 0.1 x10^3/uL (0.0-0.2) Platelet Estimate Adequate (ADEQUATE) Hypochromasia Slight Poikilocytosis Slight Anisocytosis Mod Acanthocytes (Spur Cells) Occ Schistocytes Occ Sodium Level 134 mmol/L (136-145) L Potassium Level 4.0 mmol/L (3.5-5.1) Chloride Level 100 mmol/L (98-107) Carbon Dioxide Level 29 mmol/L (21-32) Anion Gap 5 (6-14) L Blood Urea Nitrogen 23 mg/dL (7-20) H Creatinine 0.3 mg/dL (0.6-1.0) L Estimated GFR (Cockcroft-Gault) 213.0 BUN/Creatinine Ratio 77 (6-20) H Glucose Level 110 mg/dL (70-99) H Lactic Acid Level 1.0 mmol/L (0.4-2.0) Calcium Level 8.8 mg/dL (8.5-10.1) Total Bilirubin 0.3 mg/dL (0.2-1.0) Aspartate Amino Transferase (AST) 24 U/L (15-37) Alanine Aminotransferase (ALT) 30 U/L (14-59) Alkaline Phosphatase 91 U/L (46-116) Troponin I Quantitative < 0.017 ng/mL (0.000-0.055) Total Protein 6.2 g/dL (6.4-8.2) L Albumin 3.4 g/dL (3.4-5.0) Albumin/Globulin Ratio 1.2 (1.0-1.7) Urine Collection Type Unknown Urine Color Yellow Urine Clarity Clear Urine pH 6.0 (<5.0-8.0) Urine Specific [place] 1.010 (1.000-1.030) Urine Protein Negative mg/dL (NEG-TRACE) Urine Glucose (UA) Negative mg/dL (NEG) Urine Ketones (Stick) Negative mg/dL (NEG) Urine Blood Negative (NEG) Urine Nitrite Negative (NEG) Urine Bilirubin Negative (NEG) Urine Urobilinogen Dipstick 0.2 mg/dL (0.2 mg/dL) Urine Leukocyte Esterase Negative (NEG) Urine RBC 0 /HPF (0-2) Urine WBC Occ /HPF (0-4) Urine Squamous Epithelial Cells Few /LPF Urine Bacteria 0 /HPF (0-FEW) Urine Mucus Slight /LPF Laboratory Tests 03/03/20 21:18 Laboratory Tests 03/03/20 21:18 Vital Signs: Vital Signs Date Time Temp Pulse Resp B/P (MAP) Pulse Ox O2 Delivery O2 Flow Rate FiO2 03/04/20 03:24 97.8 65 14 126/59 (81) 97 Room Air 97.8 EKG: EKG: [] Radiology/Procedures: Radiology/Procedures: [] Course & Med Decision Making: Course & Med Decision Making Pertinent Labs and Imaging studies reviewed. (See chart for details) Patient is an 84-year-old female who presents to the emergency room with weight loss. Patient at baseline has failure to thrive and has had a significant weight loss over the last 5 days. CBC, BMP, UA, C. difficile test was ordered. Patient will be given fluids for significant dehydration. She will be admitted for GI evaluation. Dragon Disclaimer: Dragon Disclaimer: This electronic medical record was generated, in whole or in part, using a voice recognition dictation system. Departure Departure Impression: Primary Impression: Diarrhea Additional Impression: Dehydration Disposition: ADMITTED INPATIENT Condition: STABLE Referrals: ARMEN BRAND MD (PCP) Justicifation of Admission Dx: Justifications for Admission: Justification of Admission Dx: Yes CHF: Sev. Electrolyte Abnormal BIBI OLIVER MD Mar 04, 2020 04:52
[2020-03-04] MEDS ORDERED: C.DIFF MED SCREEN BY RX. MC ONE (09:00)
[2020-03-04 11:18] LABS: BASO % 0 % (0-3); EOS # 0.1 x10^3/uL (0.0-0.7); EOS % 2 % (0-3); HEMATOCRIT 29.9 % (36.0-47.0); HEMOGLOBIN 10.3 g/dL (12.0-15.5); LYMPH # 0.4 x10^3/uL (1.0-4.8); LYMPH % 13 % (24-48); MEAN CORPUSCULAR HEMOGLOBIN 34 pg (25-35); MEAN CORPUSCULAR HGB CONC 34 g/dL (31-37); MEAN CORPUSCULAR VOLUME 99 fL (79-100); MONO # 0.4 x10^3/uL (0.0-1.1); MONO % 13 % (0-9); NEUT # 2.1 x10^3/uL (1.8-7.7); NEUT % 72 % (31-73); PLATELET COUNT 393 x10^3/uL (140-400); RED BLOOD COUNT 3.03 x10^6/uL (3.50-5.40); RED CELL DISTRIBUTION WIDTH 24.8 % (11.5-14.5); WHITE BLOOD COUNT 2.8 x10^3/uL (4.0-11.0)
[2020-03-04 11:26] LABS: ALBUMIN 3.1 g/dL (3.4-5.0); ALBUMIN/GLOBULIN RATIO 1.2 (1.0-1.7); CALCIUM 8.3 mg/dL (8.5-10.1); CREATININE 0.4 mg/dL (0.6-1.0); GFR 152.8; MAGNESIUM 1.8 mg/dL (1.8-2.4); PHOSPHORUS 3.1 mg/dL (2.6-4.7); POTASSIUM 3.5 mmol/L (3.5-5.1); TOTAL BILIRUBIN 0.3 mg/dL (0.2-1.0); TOTAL PROTEIN 5.6 g/dL (6.4-8.2)
[2020-03-04] MEDS: TPN PER PHARMACY MC PRN (12:56)
--- NOTE | 2020-03-04 12:56 | NUR ---
Pharmacy TPN Dosing Note S: LALI QUEEN is a 84 year old F Currently receiving Central Continuous TPN started 03/04/20 B:Pertinent PMH: failure to thrive Height: 4 feet, 5 inches Weight: 35.6 kg Current diet: Regular LABS: Sodium: 136 Potassium: 3.5 Chloride: 99 Calcium: 8.3 Corrected Calcium: 9.02 Magnesium: 1.8 CO2: 30 SCr: 0.4 Glucose: 81 Albumin: 3.1 AST: 19 ALT: 30 TPN FORMULA: TPN TYPE: Central Continuous AMINO ACIDS: 48 gm DEXTROSE: 150 gm LIPIDS: 24 gm SODIUM CHLORIDE: 90 mEq POTASSIUM CHLORIDE: 40 mEq POTASSIUM PHOSPHATE: 20.4 mmol MAGNESIUM: 10 mEq CALCIUM: 8 mEq MULTIPLE VITAMIN: 10 ml TRACE ELEMENTS: 1 ml(s) TPN PLAN: Obtained home TPN formula from [facility]. Will continue current formula as electrolytes and triglycerides are WNL. -BMP, Mag and Phos ordered for AM per Dr. Flores R: Begin TPN as noted above. Will monitor electrolytes, glucose, and tolerance to TPN. [facility], 03/04/20 [id number]
--- NOTE | 2020-03-04 14:28 | PDOC2 ---
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 On admit, her Na was 134 an K was 4. Her current Hgb is 10.3 She was recently admitted to [facility] for hyponatremia and was placed on home TPN. She has been having episodes of "delirium" per her family in the evening. She declines Gattex for Short bowel syndrome PMH: PMH: Past Medical History Cardiovascular: HTN CENTRAL NERVOUS SYSTEM: CVA GI: Diverticulosis, GERD, Other (Short bowel syndrome): emergency ex lap, reduction of internal hernia, small bowel resection, cecectomy, ileocecal anastomosis and abdominal washout on 04/28/2019 at [facility] for small bowel obstruction with ischemic colitis. Heme/Onc: Other (Ovarian cancer) Hepatobiliary: No pertinent hx Psych: No pertinent hx Rheumatologic: No pertinent hx Infectious disease: Bacterial vaginosis ENT: No pertinent hx Renal/: No pertinent hx Endocrine: No pertinent hx Dermatology: No pertinent hx Past Surgical History Past Surgical History Vertebroplasty T8 and T12 Past Surgical History: Cataract Removal, Hysterectomy Family History Family History: Hypertension (Father), Stroke (Father) Social History Smoke: No ALCOHOL: none Drugs: None Current Medications Current Medications Active Scripts Active Reported Acetaminophen 500 Mg Tablet 500 Mg PO TID PRN Ibuprofen 400 Mg Tablet 400 Mg PO PRN Q6HRS PRN Magnesium (Magnesium Oxide) 250 Mg Tablet 250 Mg PO DAILY Amlodipine Besylate 10 Mg Tablet 10 Mg PO HS Aspirin 81 Mg Tab.chew 81 Mg PO DAILY Miralax (Polyethylene Glycol 3350) 17 Gm Powd.pack 1 Pkt PO DAILY Cyanocobalamin Injection (Cyanocobalamin (Vitamin B-12)) 1,000 Mcg/1 Ml Vial 1,000 Mcg IJ 2-3 WEEKS D-Ribose (Ribose) 1 Gm Powder 1 Gm MC [pecta 501-c] [complete b complex] [super k with K2] Macular Benefits Combo Pack (Antiox#12/Om3/Dha/Epa/Lut/Zean) 1 Each Combo..pkg 1 Each PO Probiotic (Lactobacillus Combo No.10) 1 Each Capsule 1 Each PO Vitamin C (Ascorbic Acid) 1,000 Mg Tablet 1,000 Mg PO DAILY Vitamin D3 (Cholecalciferol (Vitamin D3)) 4,000 Unit Capsule 5,000 Unit PO DAILY Coq-10 (Ubidecarenone) 100 Mg Capsule 100 Mg PO DAILY Super [place]-3 ([place]-3 Fatty Acids) 1,000 Mg Capsule 1,000 Mg PO DAILY Allergies Allergies: Coded Allergies: No Known Drug Allergies (Unverified , 12/29/19) FH: Family History: No pertinent hx, CVA, Hypertension Social History: Smoke: No ALCOHOL: none Drugs: None ROS: ROS General: YES: Fatigue, Malaise, Appetite; No: Chills, Night Sweats, Other PSYCHOLOGICAL ROS: No: Anxiety, Behavioral Disorder, Concentration difficultie, Decreased libido, Depression, Disorientation, Hallucinations, Hostility, Irritablity, Memory difficulties, Mood Swings, Obsessive thoughts, Physical abuse, Sexual abuse, Sleep disturbances, Suicidal ideation, Other Eyes: No Blurry vision, No Decreased vision, No Double vision, No Dry eyes, No Excessive tearing, No Eye Pain, No Itchy Eyes, No Loss of vision, No Photophobia, No Scotomata, No Uses contacts, No Uses glasses, No Other HEENT: No: Heacaches, Visual Changes, Hearing change, Nasal congestion, Nasal discharge, Oral lesions, Sinus pain, Sore Throat, Epistaxis, Sneezing, Snoring, Tinnitus, Vertigo, Vocal changes, Other ALLERGY AND IMMUNOLOGY: No: Hives, Insect Bite Sensitivity, Itchy/Watery Eyes, Nasal Congestion, Post Nasal Drip, Seasonal Allergies, Other Hematological and Lymphatic: No: Bleeding Problems, Blood Clots, Blood Transfusions, Brusing, Night Sweats, Pallor, Swollen Lymph Nodes, Other ENDOCRINE: No: Breast Changes, Galactorrhea, Hair Pattern Changes, Hot Flashes, Malaise/lethargy, Mood Swings, Palpitations, Polydipsia/polyuria, Skin Changes, Temperature Intolerance, Unexpected Weight Changes, Other Breast: No New/Changing Breast Lumps, No Nipple changes, No Nipple discharge, No Other Respiratory: No: Cough, Hemoptysis, Orthopnea, Pleuritic Pain, Shortness of breath, SOB with excertion, Sputum Changes, Stridor, Tachypnea, Wheezing, Other Cardiovascular: No Chest Pain, No Palpitations, No Orthopnea, No Paroxysmal Noc. Dyspnea, No Edema, No Lt Headedness, No Other Gastrointestinal: Yes Nausea, Yes Abdominal Pain, Yes Diarrhea, Yes Constipation; No Vomiting, No Melena, No Hematochezia, No Other Genitourinary: No Dysuria, No Frequency, No Incontinence, No Hematuria, No Retention, No Discharge, No Urgency, No Pain, No Flank Pain, No Other, No , No , No , No , No , No , No Musculoskeletal: Yes Gait Disturbance, Yes Muscular Weakness; No Joint Pain, No Joint Stiffness, No Joint Swelling, No Muscle Pain, No Pain In:, No Swelling In:, No Other Neurological: Yes Gait Disturbance; No Behavorial Changes, No Bowel/Bladder ControlChng, No Confusion, No Dizziness, No Headaches, No Impaired Coord/balance, No Memory Loss, No Numbness/Tingling, No Seizures, No Speech Problems, No Tremors, No Visual Changes, No Weakness, No Other Skin: No Dry Skin, No Eczema, No Hair Changes, No Lumps, No Mole Changes, No Mottling, No Nail Changes, No Pruritus, No Rash, No Skin Lesion Changes, No Other, No Acne P VItals: Vitals: Vital Signs Date Time Temp Pulse Resp B/P (MAP) Pulse Ox O2 Delivery O2 Flow Rate FiO2 03/04/20 10:13 97.9 77 16 140/65 (90) 98 Room Air 97.9 Labs: Labs: Laboratory Tests Test 03/03/20 21:18 03/04/20 04:00 03/04/20 10:50 03/04/20 11:21 White Blood Count 3.4 x10^3/uL (4.0-11.0) 2.8 x10^3/uL (4.0-11.0) Red Blood Count 3.10 x10^6/uL (3.50-5.40) 3.03 x10^6/uL (3.50-5.40) Hemoglobin 10.4 g/dL (12.0-15.5) 10.3 g/dL (12.0-15.5) Hematocrit 30.3 % (36.0-47.0) 29.9 % (36.0-47.0) Mean Corpuscular Volume 98 fL (79-100) 99 fL (79-100) Mean Corpuscular Hemoglobin 34 pg (25-35) 34 pg (25-35) Mean Corpuscular Hemoglobin Concent 34 g/dL (31-37) 34 g/dL (31-37) Red Cell Distribution Width 24.7 % (11.5-14.5) 24.8 % (11.5-14.5) Platelet Count 423 x10^3/uL (140-400) 393 x10^3/uL (140-400) Neutrophils (%) (Auto) 64 % (31-73) 72 % (31-73) Lymphocytes (%) (Auto) 17 % (24-48) 13 % (24-48) Monocytes (%) (Auto) 15 % (0-9) 13 % (0-9) Eosinophils (%) (Auto) 2 % (0-3) 2 % (0-3) Basophils (%) (Auto) 2 % (0-3) 0 % (0-3) Neutrophils # (Auto) 2.2 x10^3/uL (1.8-7.7) 2.1 x10^3/uL (1.8-7.7) Lymphocytes # (Auto) 0.6 x10^3/uL (1.0-4.8) 0.4 x10^3/uL (1.0-4.8) Monocytes # (Auto) 0.5 x10^3/uL (0.0-1.1) 0.4 x10^3/uL (0.0-1.1) Eosinophils # (Auto) 0.1 x10^3/uL (0.0-0.7) 0.1 x10^3/uL (0.0-0.7) Basophils # (Auto) 0.1 x10^3/uL (0.0-0.2) 0.0 x10^3/uL (0.0-0.2) Platelet Estimate Adequate (ADEQUATE) Hypochromasia Slight Poikilocytosis Slight Anisocytosis Mod Acanthocytes Occ Schistocytes Occ Sodium Level 134 mmol/L (136-145) 136 mmol/L (136-145) Potassium Level 4.0 mmol/L (3.5-5.1) 3.5 mmol/L (3.5-5.1) Chloride Level 100 mmol/L (98-107) 99 mmol/L (98-107) Carbon Dioxide Level 29 mmol/L (21-32) 30 mmol/L (21-32) Anion Gap 5 (6-14) 7 (6-14) Blood Urea Nitrogen 23 mg/dL (7-20) 19 mg/dL (7-20) Creatinine 0.3 mg/dL (0.6-1.0) 0.4 mg/dL (0.6-1.0) Estimated GFR (Cockcroft-Gault) 213.0 152.8 BUN/Creatinine Ratio 77 (6-20) 48 (6-20) Glucose Level 110 mg/dL (70-99) 81 mg/dL (70-99) Lactic Acid Level 1.0 mmol/L (0.4-2.0) Calcium Level 8.8 mg/dL (8.5-10.1) 8.3 mg/dL (8.5-10.1) Total Bilirubin 0.3 mg/dL (0.2-1.0) 0.3 mg/dL (0.2-1.0) Aspartate Amino Transf (AST/SGOT) 24 U/L (15-37) 19 U/L (15-37) Alanine Aminotransferase (ALT/SGPT) 30 U/L (14-59) 30 U/L (14-59) Alkaline Phosphatase 91 U/L (46-116) 83 U/L (46-116) Troponin I Quantitative < 0.017 ng/mL (0.000-0.055) Total Protein 6.2 g/dL (6.4-8.2) 5.6 g/dL (6.4-8.2) Albumin 3.4 g/dL (3.4-5.0) 3.1 g/dL (3.4-5.0) Albumin/Globulin Ratio 1.2 (1.0-1.7) 1.2 (1.0-1.7) Urine Collection Type Unknown Urine Color Yellow Urine Clarity Clear Urine pH 6.0 (<5.0-8.0) Urine Specific [place] 1.010 (1.000-1.030) Urine Protein Negative mg/dL (NEG-TRACE) Urine Glucose (UA) Negative mg/dL (NEG) Urine Ketones (Stick) Negative mg/dL (NEG) Urine Blood Negative (NEG) Urine Nitrite Negative (NEG) Urine Bilirubin Negative (NEG) Urine Urobilinogen Dipstick 0.2 mg/dL (0.2 mg/dL) Urine Leukocyte Esterase Negative (NEG) Urine RBC 0 /HPF (0-2) Urine WBC Occ /HPF (0-4) Urine Squamous Epithelial Cells Few /LPF Urine Bacteria 0 /HPF (0-FEW) Urine Mucus Slight /LPF Phosphorus Level 3.1 mg/dL (2.6-4.7) Magnesium Level 1.8 mg/dL (1.8-2.4) Triglycerides Level 31 mg/dL (0-150) Glucose (Fingerstick) 83 mg/dL (70-99) PE: Physical Exam General: Alert, Oriented X3, Cooperative, No acute distress. Cachectic HEENT: Atraumatic, PERRLA, EOMI, Mucous membr. moist/pink Lungs: Clear to auscultation, Normal air movement Heart: S1S2, RRR, no thrills, no rubs, no gallops, no murmurs Abdomen: Normal bowel sounds, Soft, No tenderness, No hepatosplenomegaly, No masses Rectal Exam: not examined Extremities: No clubbing, No cyanosis, No edema, Normal pulses, No tenderness/swelling Skin: No rashes, No breakdown, No significant lesion Neuro: Normal speech, Strength at 5/5 X4 ext, Normal tone, Sensation intact, Cranial nerves 3-12 NL, Reflexes 2+ Psych/Mental Status: Mental status NL, Mood NL A/P: A/P: A 1) Diarrhea 2) Malnutrition on TPN 3) Anemia P 1) Check stool studies. Less likely that she has C diff on Xifaxin, but possible 2) Consider check stool for 72 hour fecal fat 3) Monitor Hgb 4) She is scared to eat. Okay to take PO from my standpoint CHELSIE CELAYA MD Mar 04, 2020 14:28
--- NOTE | 2020-03-04 15:12 | PDOC ---
GENERAL General: History and physical [id number] VITAL SIGNS Vital Signs/I&O: Vital Signs Date Time Temp Pulse Resp B/P (MAP) Pulse Ox O2 Delivery O2 Flow Rate FiO2 03/04/20 14:23 97.6 86 15 141/65 (90) 96 Room Air 97.6 I & O 03/03/20 03/03/20 03/04/20 15:00 23:00 07:00 Intake Total 300 ml Output Total 1400 ml Balance -1100 ml ALLERGIES Allergies: Allergies Coded Allergies Type Severity Reaction Last Updated Verified No Known Drug Allergies 12/29/19 No MEDS Medications: Current Medications Medications (Trade) Dose Ordered Sig/Yeimi Route PRN Reason Start Time Stop Time Status Last Admin Dose Admin Sodium Chloride 250 ml @ 250 mls/hr 1X ONCE IV 03/03/20 22:00 03/03/20 22:59 DC 03/03/20 22:34 Pharmacy Consult (C.diff Med Screen By Rx) 1 each 1X ONCE MC 03/04/20 09:00 03/04/20 09:01 DC 03/04/20 09:00 Info (Tpn Per Pharmacy) 1 each PRN DAILY PRN MC SEE COMMENTS 03/04/20 10:00 03/04/20 12:56 LAB Lab: Laboratory Tests Test 03/03/20 21:18 03/04/20 04:00 03/04/20 10:50 03/04/20 11:21 White Blood Count 3.4 x10^3/uL (4.0-11.0) L 2.8 x10^3/uL (4.0-11.0) L Red Blood Count 3.10 x10^6/uL (3.50-5.40) L 3.03 x10^6/uL (3.50-5.40) L Hemoglobin 10.4 g/dL (12.0-15.5) L 10.3 g/dL (12.0-15.5) L Hematocrit 30.3 % (36.0-47.0) L 29.9 % (36.0-47.0) L Mean Corpuscular Volume 98 fL (79-100) 99 fL (79-100) Mean Corpuscular Hemoglobin 34 pg (25-35) 34 pg (25-35) Mean Corpuscular Hemoglobin Concent 34 g/dL (31-37) 34 g/dL (31-37) Red Cell Distribution Width 24.7 % (11.5-14.5) H 24.8 % (11.5-14.5) H Platelet Count 423 x10^3/uL (140-400) H 393 x10^3/uL (140-400) Neutrophils (%) (Auto) 64 % (31-73) 72 % (31-73) Lymphocytes (%) (Auto) 17 % (24-48) L 13 % (24-48) L Monocytes (%) (Auto) 15 % (0-9) H 13 % (0-9) H Eosinophils (%) (Auto) 2 % (0-3) 2 % (0-3) Basophils (%) (Auto) 2 % (0-3) 0 % (0-3) Neutrophils # (Auto) 2.2 x10^3/uL (1.8-7.7) 2.1 x10^3/uL (1.8-7.7) Lymphocytes # (Auto) 0.6 x10^3/uL (1.0-4.8) L 0.4 x10^3/uL (1.0-4.8) L Monocytes # (Auto) 0.5 x10^3/uL (0.0-1.1) 0.4 x10^3/uL (0.0-1.1) Eosinophils # (Auto) 0.1 x10^3/uL (0.0-0.7) 0.1 x10^3/uL (0.0-0.7) Basophils # (Auto) 0.1 x10^3/uL (0.0-0.2) 0.0 x10^3/uL (0.0-0.2) Platelet Estimate Adequate (ADEQUATE) Hypochromasia Slight Poikilocytosis Slight Anisocytosis Mod Acanthocytes (Spur Cells) Occ Schistocytes Occ Sodium Level 134 mmol/L (136-145) L 136 mmol/L (136-145) Potassium Level 4.0 mmol/L (3.5-5.1) 3.5 mmol/L (3.5-5.1) Chloride Level 100 mmol/L (98-107) 99 mmol/L (98-107) Carbon Dioxide Level 29 mmol/L (21-32) 30 mmol/L (21-32) Anion Gap 5 (6-14) L 7 (6-14) Blood Urea Nitrogen 23 mg/dL (7-20) H 19 mg/dL (7-20) Creatinine 0.3 mg/dL (0.6-1.0) L 0.4 mg/dL (0.6-1.0) L Estimated GFR (Cockcroft-Gault) 213.0 152.8 BUN/Creatinine Ratio 77 (6-20) H 48 (6-20) H Glucose Level 110 mg/dL (70-99) H 81 mg/dL (70-99) Lactic Acid Level 1.0 mmol/L (0.4-2.0) Calcium Level 8.8 mg/dL (8.5-10.1) 8.3 mg/dL (8.5-10.1) L Total Bilirubin 0.3 mg/dL (0.2-1.0) 0.3 mg/dL (0.2-1.0) Aspartate Amino Transferase (AST) 24 U/L (15-37) 19 U/L (15-37) Alanine Aminotransferase (ALT) 30 U/L (14-59) 30 U/L (14-59) Alkaline Phosphatase 91 U/L (46-116) 83 U/L (46-116) Troponin I Quantitative < 0.017 ng/mL (0.000-0.055) Total Protein 6.2 g/dL (6.4-8.2) L 5.6 g/dL (6.4-8.2) L Albumin 3.4 g/dL (3.4-5.0) 3.1 g/dL (3.4-5.0) L Albumin/Globulin Ratio 1.2 (1.0-1.7) 1.2 (1.0-1.7) Urine Collection Type Unknown Urine Color Yellow Urine Clarity Clear Urine pH 6.0 (<5.0-8.0) Urine Specific [place] 1.010 (1.000-1.030) Urine Protein Negative mg/dL (NEG-TRACE) Urine Glucose (UA) Negative mg/dL (NEG) Urine Ketones (Stick) Negative mg/dL (NEG) Urine Blood Negative (NEG) Urine Nitrite Negative (NEG) Urine Bilirubin Negative (NEG) Urine Urobilinogen Dipstick 0.2 mg/dL (0.2 mg/dL) Urine Leukocyte Esterase Negative (NEG) Urine RBC 0 /HPF (0-2) Urine WBC Occ /HPF (0-4) Urine Squamous Epithelial Cells Few /LPF Urine Bacteria 0 /HPF (0-FEW) Urine Mucus Slight /LPF Phosphorus Level 3.1 mg/dL (2.6-4.7) Magnesium Level 1.8 mg/dL (1.8-2.4) Triglycerides Level 31 mg/dL (0-150) Glucose (Fingerstick) 83 mg/dL (70-99) Laboratory Tests 03/03/20 21:18 03/04/20 10:50 Laboratory Tests 03/03/20 21:18 03/04/20 10:50 Justicifation of Admission Dx: Justifications for Admission: Justification of Admission Dx: Yes CHF: Sev. Electrolyte Abnormal STEVE MORAN MD Mar 04, 2020 15:12
--- NOTE | 2020-03-04 15:56 | EKG ---
[facility] [address] [place] [address] Test Date: 2020-03-03 Test Time: 21:10:03 Pat Name: LALI QUEEN Department: Room: Gender: F [employer]: : [id number] Requested By: BIBI OLIVER Order Number: [id number] Reading MD: Measurements Intervals [place] Rate: 73 P: 52 IN: 154 QRS: 57 QRSD: 72 T: 62 QT: 386 QTc: 429 Interpretive Statements SINUS RHYTHM ATRIAL PREMATURE COMPLEX(ES) NO SPECIFIC ECG ABNORMALITIES RI6.02 No previous ECG available for comparison
--- NOTE | 2020-03-04 16:21 | HP ---
ADMIT DATE: 03/03/2020 HISTORY OF PRESENT ILLNESS: This is an 84-year-old woman who is a continuity outpatient of Dr. Armen Arias who uses the [facility] hospitalist group here at [facility]. I am rounding for them this weekend. She also sees Dr. Smith regularly for care. She is well known to the [facility] service with an admission just 2 weeks ago with severe weight loss, hyponatremia, and generalized weakness. The patient has a very complex abdominal surgery history with extensive surgery in 04/2019 at [facility] for small-bowel obstruction with ischemic colitis. Since that surgery, she has done poorly with continued weight loss and malabsorptive symptoms. She is following closely with Dr. Smith and had reached out to her that she was having severe diarrhea and was frightened at home on how to loading supervisor her nightly TPN infusion, which was started on that admission earlier this month. I am seeing the patient this afternoon in the company of her daughter who lives about 10 minutes away and checks on her regularly. The patient serves as her own historian, but there is a concern for increasing confusion, especially at night. The patient tells me that she has had trouble using her telephone though the daughter tells me that she calls her 20 times a day. They tell me that Dr. Smith started her on antibiotic treatment for H. pylori and after starting what sounds like Biaxin, she developed severe diarrhea. She has not had any other new specific constitutional symptoms including no fever, chills, cough, congestion, nausea, vomiting. She denies any abdominal pain. In fact, she tells me that she has been so hungry and was wanting to eat, but was concerned that certain foods may be worsening her symptoms. Her weight got as low as 68 pounds. Her current body mass index is 16. All other systems reviewed and negative. PAST MEDICAL HISTORY: 1. Severe protein-calorie malnutrition. 2. 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 3. Hypertension. 4. There is a reported history of ovarian cancer. She tells me that was in the distant past. 5. Iron deficiency anemia secondary to malnutrition. 6. Generalized weakness and debility. 7. Increasing confusion at night, may be related to early dementia in the setting of past stroke without notable residual. MEDICATIONS: Please see the medication reconciliation form. SOCIAL HISTORY: The patient is single. She lives independently in her own home. She does not have a fall alert button and has confusion using her telephone at times. She tells me she does not feel safe at home. She denies any tobacco, alcohol or illicit drugs. FAMILY HISTORY: Reviewed in full and noncontributory to the present illness. PHYSICAL EXAMINATION: VITAL SIGNS: Notable for that the patient has been afebrile, blood pressure has been in the 120s to 140s/60s, heart rate is in the 60s and regular. She is breathing comfortably and saturating normally on room air. GENERAL: She is a pleasant, chatty 84-year-old woman who appears her stated age at her baseline orientation, answering questions appropriately, in no acute distress. It should be noted that the patient is up 3 kilograms since her admission earlier this month after TPN supplementation. Her BMI is now measured at 19. GENERAL: The patient is cachectic, pleasant, chatty, in no acute distress. HEENT: Unremarkable. NECK: Soft and supple. No adenopathy or thyromegaly noted. CHEST: Bilateral equal air entry, though diminished throughout. Kyphoscoliosis is noted. HEART: S1, S2 normal. Regular rate and rhythm. No murmurs or gallops are noted. ABDOMEN: Slightly protuberant, probably because of her body habitus. Bowel sounds are present, though diminished. Soft, nontender. No masses or organomegaly noted. EXTREMITIES: Unremarkable for acute abnormality. LABORATORY DATA AND OTHER STUDIES: Admission white count is 3.4, which is at her baseline. Her hemoglobin is also at baseline at 10.4, platelet count is 423. Chemistry panel is notable for a serum creatinine of 0.3. Serum sodium is 134 on admission, was quite low last admission, now at 136 this morning. Liver function tests are normal. Serum albumin is 3.4. Urinalysis is clear. Chest x-ray is unremarkable for acute abnormality. ASSESSMENT AND PLAN: Impression, this patient is a frail 84-year-old woman with failure to thrive at home, on overnight TPN for the last few weeks and seems to be actually responding quite well to that, admitted with a complaint of severe diarrhea that she has not been able to present this with the specimen yet to test for antibiotic-associated diarrhea. C. diff and stool cultures are pending. The patient does admit to feeling frightened at home, especially in the evenings. Daughter tells me that she is looking forward to speaking with social work about options for hiring and help at home. The patient is also considering getting a fall alert button which will make her feel a lot safer if she has any confusion in using her phone. I will defer to her continuity primary care and further assessing her intermittent evening confusion. She certainly appears to be neurologically stable here and does not need further imaging at this point. We could consider a CT brain depending on her progress. The patient also tells me that she is having a hard time figuring out how to loading supervisor her nightly TPN, which may be an issue given that it has helped her clinically quite a bit. We have asked nutrition to come and assess her and hopefully guide her food decisions that may exacerbate her loose stool less. Given that she does have presumed short bowel syndrome, she might do better to avoid high fiber foods. We have consulted physical therapy, occupational therapy, and director social welfare and their assistance is appreciated. Her continuity GI doc has already been by today and her assistance is appreciated. Inpatient status is most appropriate as we anticipate a length of stay of 2-3 midnights while we work this through. The patient is a full code unless her daughter who is present at bedside as the decision maker. STEVE MORAN MD DR: PLACIDO/alonso JOB#: [id number] / [id number] ARMEN Sebastian MD MTDD
[2020-03-04] MEDS: amLODIPine BESYLATE 10 MG TABLET PO SCH (20:37)
[2020-03-04] MEDS: ASPIRIN CHEWABLE 81 MG TABLET. PO SCH (20:43)
[2020-03-04] MEDS ORDERED: DEXTROSE 70% IV SCH ×11 (22:00)
[2020-03-04] MEDS ORDERED: [UNRECOGNIZED DRUG - OTHER] IV SCH ×11 (22:00)
[2020-03-04] MEDS ORDERED: TOTAL PARENTERAL NUTRITION IV SCH ×11 (22:00)
[2020-03-04] MEDS ORDERED: AMINO ACID IV SCH ×11 (22:00)
[2020-03-05] MEDS: IBUPROFEN 400 MG TABLET. PO PRN (03:03)
[2020-03-05 03:17] VITALS: BP 115/61
[2020-03-05 07:00] VITALS: BP 123/57
[2020-03-05 08:06] LABS: BASO # 0.1 x10^3/uL (0.0-0.2); BASO % 2 % (0-3); EOS # 0.1 x10^3/uL (0.0-0.7); EOS % 4 % (0-3); HEMATOCRIT 31.8 % (36.0-47.0); HEMOGLOBIN 10.8 g/dL (12.0-15.5); LYMPH # 0.6 x10^3/uL (1.0-4.8); LYMPH % 23 % (24-48); MEAN CORPUSCULAR HEMOGLOBIN 34 pg (25-35); MEAN CORPUSCULAR HGB CONC 34 g/dL (31-37); MEAN CORPUSCULAR VOLUME 99 fL (79-100); MONO # 0.4 x10^3/uL (0.0-1.1); MONO % 15 % (0-9); NEUT # 1.4 x10^3/uL (1.8-7.7); NEUT % 56 % (31-73); PLATELET COUNT 412 x10^3/uL (140-400); RED BLOOD COUNT 3.22 x10^6/uL (3.50-5.40); WHITE BLOOD COUNT 2.5 x10^3/uL (4.0-11.0)
[2020-03-05 08:27] LABS: ALBUMIN 3.3 g/dL (3.4-5.0); ALBUMIN/GLOBULIN RATIO 1.1 (1.0-1.7); CALCIUM 8.9 mg/dL (8.5-10.1); CREATININE 0.4 mg/dL (0.6-1.0); TOTAL PROTEIN 6.2 g/dL (6.4-8.2)
[2020-03-05 08:28] LABS: GFR 152.8; MAGNESIUM 1.9 mg/dL (1.8-2.4); PHOSPHORUS 3.2 mg/dL (2.6-4.7); POTASSIUM 3.5 mmol/L (3.5-5.1); TOTAL BILIRUBIN 0.4 mg/dL (0.2-1.0)
[2020-03-05] MEDS: TPN PER PHARMACY MC PRN (10:14)
--- NOTE | 2020-03-05 10:14 | NUR ---
Pharmacy TPN Dosing Note S: LALI QUEEN is a 84 year old F Currently receiving Central Continuous TPN started 03/04/20 B:Pertinent PMH: failure to thrive Height: 4 feet, 5 inches Weight: 35.6 kg Current diet: regular LABS: Sodium: 133 Potassium: 3.5 Chloride: 96 Calcium: 8.9 Corrected Calcium: 9.46 Magnesium: 1.9 CO2: 31 SCr: 0.4 Glucose: 97-104 Albumin: 3.3 AST: 29 ALT: 39 TPN FORMULA: TPN TYPE: Central Continuous AMINO ACIDS: 48 gm DEXTROSE: 150 gm LIPIDS: 24 gm SODIUM CHLORIDE: 90 mEq POTASSIUM CHLORIDE: 40 mEq POTASSIUM PHOSPHATE: 20.4 mmol MAGNESIUM: 10 mEq CALCIUM: 8 mEq MULTIPLE VITAMIN: 10 ml TRACE ELEMENTS: 1 ml(s) TPN PLAN: Continue same TPN. -BMP, Mag and Phos ordered for AM per Dr. Flores R: Continue same TPN formula. Will monitor electrolytes, glucose, and tolerance to TPN. [facility], 03/05/20 [id number]
[2020-03-05 10:42] VITALS: BP 123/58
--- NOTE | 2020-03-05 13:14 | PDOC ---
Date of Service: DATE: 03/05/20 TIME: 13:09 Subjective: Subjective: diarrhea improved. C diff negative Objective: Vital Signs: Vital Signs Date Time Temp Pulse Resp B/P (MAP) Pulse Ox O2 Delivery O2 Flow Rate FiO2 03/05/20 10:42 97.6 94 19 123/58 (79) 98 Room Air 97.6 Labs: Laboratory Tests Test 03/04/20 14:00 03/04/20 17:32 03/05/20 00:24 03/05/20 06:18 Clostridium difficile Toxin (PCR) Negative (NEGATIVE) Glucose (Fingerstick) 110 mg/dL (70-99) 97 mg/dL (70-99) 99 mg/dL (70-99) Test 03/05/20 06:45 03/05/20 11:39 White Blood Count 2.5 x10^3/uL (4.0-11.0) Red Blood Count 3.22 x10^6/uL (3.50-5.40) Hemoglobin 10.8 g/dL (12.0-15.5) Hematocrit 31.8 % (36.0-47.0) Mean Corpuscular Volume 99 fL (79-100) Mean Corpuscular Hemoglobin 34 pg (25-35) Mean Corpuscular Hemoglobin Concent 34 g/dL (31-37) Red Cell Distribution Width 24.0 % (11.5-14.5) Platelet Count 412 x10^3/uL (140-400) Neutrophils (%) (Auto) 56 % (31-73) Lymphocytes (%) (Auto) 23 % (24-48) Monocytes (%) (Auto) 15 % (0-9) Eosinophils (%) (Auto) 4 % (0-3) Basophils (%) (Auto) 2 % (0-3) Neutrophils # (Auto) 1.4 x10^3/uL (1.8-7.7) Lymphocytes # (Auto) 0.6 x10^3/uL (1.0-4.8) Monocytes # (Auto) 0.4 x10^3/uL (0.0-1.1) Eosinophils # (Auto) 0.1 x10^3/uL (0.0-0.7) Basophils # (Auto) 0.1 x10^3/uL (0.0-0.2) Sodium Level 133 mmol/L (136-145) Potassium Level 3.5 mmol/L (3.5-5.1) Chloride Level 96 mmol/L (98-107) Carbon Dioxide Level 31 mmol/L (21-32) Anion Gap 6 (6-14) Blood Urea Nitrogen 15 mg/dL (7-20) Creatinine 0.4 mg/dL (0.6-1.0) Estimated GFR (Cockcroft-Gault) 152.8 BUN/Creatinine Ratio 38 (6-20) Glucose Level 104 mg/dL (70-99) Calcium Level 8.9 mg/dL (8.5-10.1) Phosphorus Level 3.2 mg/dL (2.6-4.7) Magnesium Level 1.9 mg/dL (1.8-2.4) Total Bilirubin 0.4 mg/dL (0.2-1.0) Aspartate Amino Transf (AST/SGOT) 29 U/L (15-37) Alanine Aminotransferase (ALT/SGPT) 39 U/L (14-59) Alkaline Phosphatase 93 U/L (46-116) Total Protein 6.2 g/dL (6.4-8.2) Albumin 3.3 g/dL (3.4-5.0) Albumin/Globulin Ratio 1.1 (1.0-1.7) Glucose (Fingerstick) 82 mg/dL (70-99) Physical Exam: Physical Exam: Physical Exam General: Alert, Oriented X3, Cooperative, No acute distress. Cachectic HEENT: Atraumatic, PERRLA, EOMI, Mucous membr. moist/pink Lungs: Clear to auscultation, Normal air movement Heart: S1S2, RRR, no thrills, no rubs, no gallops, no murmurs Abdomen: Normal bowel sounds, Soft, No tenderness, No hepatosplenomegaly, No masses Rectal Exam: not examined Extremities: No clubbing, No cyanosis, No edema, Normal pulses, No tenderness/swelling Skin: No rashes, No breakdown, No significant lesion Neuro: Normal speech, Strength at 5/5 X4 ext, Normal tone, Sensation intact, Cranial nerves 3-12 NL, Reflexes 2+ Psych/Mental Status: Mental status NL, Mood NL Assessment & Plan: Assessment : A/P: A/P: A 1) Diarrhea 2) Malnutrition on TPN 3) Anemia Plan: P 1) C diff negative. Diarrhea imrpvoed per nursing and patient 2) Consider check stool for 72 hour fecal fat 3) Monitor Hgb 4) She is scared to eat. Okay to take PO from my standpoint 5) Restart Xifaxin in house. if diarrhea resumes, then will need to hold that med Justicifation of Admission Dx: Justifications for Admission: Justification of Admission Dx: Yes CHF: Sev. Electrolyte Abnormal CHELSIE CELAYA MD Mar 05, 2020 13:14
[2020-03-05] MEDS: rifAXIMin 550 MG TABLET PO SCH ×2 (14:24→22:12)
--- NOTE | 2020-03-05 14:29 | PDOC ---
GENERAL General: Patient examined chart reviewed seen with nursing and daughter at bedside. She is in good spirits this afternoon tells me she got a lot out of her session with Physical therapy and Occupational Therapy this afternoon their assistance is appreciated. She is really wanting to do well with her dietary approach and we are looking forward to nutrition consult tomorrow morning. She has a lot of questions about what she can and cannot eat. I told her to practice some trial and error and that with her short gut syndrome she may find certain foods may exacerbate. In general avoiding high-fiber and high fat foods as well as high sugar may help controlling her diarrhea. I agree with a trial of his Afaxin and reassessment relative to the diarrhea. Appreciate GI consultation. Continue current management otherwise. Greater than 30 minutes spent on this assessment today with greater than 50% in counseling and coordination of care most of which in discussion with patient and daughter along with nursing at bedside. Problems: (1) Acquired short bowel syndrome (2) Diarrhea (3) Dehydration (4) Abnormal weight loss VITAL SIGNS Vital Signs/I&O: Vital Signs Date Time Temp Pulse Resp B/P (MAP) Pulse Ox O2 Delivery O2 Flow Rate FiO2 03/05/20 10:42 97.6 94 19 123/58 (79) 98 Room Air 97.6 I & O 03/04/20 03/04/20 03/05/20 14:59 22:59 06:59 Intake Total 1360 ml 440 ml 100 ml Output Total 600 ml 1 ml 700 ml Balance 760 ml 439 ml -600 ml In general the patient is pleasant in good humor this afternoon alert and oriented x3 no acute distress HEENT exam is unremarkable Chest is clear to auscultation Heart S1-S2 normal regular rate and rhythm no murmurs or gallops are noted Abdomen soft nontender nondistended no masses organomegaly noted Extremity exam is unremarkable for acute abnormality ALLERGIES Allergies: Allergies Coded Allergies Type Severity Reaction Last Updated Verified No Known Drug Allergies 12/29/19 No MEDS Medications: Current Medications Medications (Trade) Dose Ordered Sig/Yeimi Start Time Stop Time Status Last Admin Dose Admin Amlodipine Besylate (Norvasc) 10 mg HS 03/04/20 21:00 03/04/20 20:37 Aspirin (Aspirin Chewable) 81 mg QHS 03/04/20 21:00 03/04/20 20:43 Ibuprofen (Motrin) 400 mg PRN Q6HRS PRN 03/04/20 10:00 03/05/20 03:03 Info (Tpn Per Pharmacy) 1 each PRN DAILY PRN 03/04/20 10:00 03/05/20 10:14 Pharmacy Consult ([facility] Med Screen By Rx) 1 each 1X ONCE 03/04/20 09:00 03/04/20 09:01 DC 03/04/20 09:00 Rifaximin (Xifaxan) 550 mg Q8HRS 03/05/20 14:00 Sodium Chloride 90 meq/Potassium Chloride 40 meq/ Potassium Phosphate 20.4 mmol/Magnesium Sulfate 10 meq/ Calcium Gluconate 8 meq/ Multivitamins 10 ml/Chromium/ Copper/Manganese/ Seleni/Zn 1 ml/ Thiamine HCl 100 mg/Total Parenteral Nutrition/Amino Acids/Dextrose/ Fat Emuls... 1,200 ml @ 50 mls/hr TPN CONT 03/05/20 22:00 03/06/20 21:59 Current Medications Medications (Trade) Dose Ordered Sig/Yeimi Route PRN Reason Start Time Stop Time Status Last Admin Dose Admin Amlodipine Besylate (Norvasc) 10 mg HS PO 03/04/20 21:00 03/04/20 20:37 Aspirin (Aspirin Chewable) 81 mg QHS PO 03/04/20 21:00 03/04/20 20:43 Sodium Chloride 90 meq/Potassium Chloride 40 meq/ Potassium Phosphate 20.4 mmol/Magnesium Sulfate 10 meq/ Calcium Gluconate 8 meq/ Multivitamins 10 ml/Chromium/ Copper/Manganese/ Seleni/Zn 1 ml/ Thiamine HCl 100 mg/Total Parenteral Nutrition/Amino Acids/Dextrose/ Fat Emuls... 1,200 ml @ 50 mls/hr TPN CONT IV 03/04/20 22:00 03/05/20 21:59 03/04/20 20:38 LAB Lab: Laboratory Tests Test 03/04/20 17:32 03/05/20 00:24 03/05/20 06:18 03/05/20 06:45 Glucose (Fingerstick) 110 mg/dL (70-99) H 97 mg/dL (70-99) 99 mg/dL (70-99) White Blood Count 2.5 x10^3/uL (4.0-11.0) L Red Blood Count 3.22 x10^6/uL (3.50-5.40) L Hemoglobin 10.8 g/dL (12.0-15.5) L Hematocrit 31.8 % (36.0-47.0) L Mean Corpuscular Volume 99 fL (79-100) Mean Corpuscular Hemoglobin 34 pg (25-35) Mean Corpuscular Hemoglobin Concent 34 g/dL (31-37) Red Cell Distribution Width 24.0 % (11.5-14.5) H Platelet Count 412 x10^3/uL (140-400) H Neutrophils (%) (Auto) 56 % (31-73) Lymphocytes (%) (Auto) 23 % (24-48) L Monocytes (%) (Auto) 15 % (0-9) H Eosinophils (%) (Auto) 4 % (0-3) H Basophils (%) (Auto) 2 % (0-3) Neutrophils # (Auto) 1.4 x10^3/uL (1.8-7.7) L Lymphocytes # (Auto) 0.6 x10^3/uL (1.0-4.8) L Monocytes # (Auto) 0.4 x10^3/uL (0.0-1.1) Eosinophils # (Auto) 0.1 x10^3/uL (0.0-0.7) Basophils # (Auto) 0.1 x10^3/uL (0.0-0.2) Sodium Level 133 mmol/L (136-145) L Potassium Level 3.5 mmol/L (3.5-5.1) Chloride Level 96 mmol/L (98-107) L Carbon Dioxide Level 31 mmol/L (21-32) Anion Gap 6 (6-14) Blood Urea Nitrogen 15 mg/dL (7-20) Creatinine 0.4 mg/dL (0.6-1.0) L Estimated GFR (Cockcroft-Gault) 152.8 BUN/Creatinine Ratio 38 (6-20) H Glucose Level 104 mg/dL (70-99) H Calcium Level 8.9 mg/dL (8.5-10.1) Phosphorus Level 3.2 mg/dL (2.6-4.7) Magnesium Level 1.9 mg/dL (1.8-2.4) Total Bilirubin 0.4 mg/dL (0.2-1.0) Aspartate Amino Transferase (AST) 29 U/L (15-37) Alanine Aminotransferase (ALT) 39 U/L (14-59) Alkaline Phosphatase 93 U/L (46-116) Total Protein 6.2 g/dL (6.4-8.2) L Albumin 3.3 g/dL (3.4-5.0) L Albumin/Globulin Ratio 1.1 (1.0-1.7) Test 03/05/20 11:39 Glucose (Fingerstick) 82 mg/dL (70-99) Laboratory Tests 03/05/20 06:45 Laboratory Tests 03/05/20 06:45 ASSESSMENT & PLAN A&P Plan as noted above This note was created using [employer] and may have omissions and/or errors due to the nature of real-time voice principal statistical programmer. Justicifation of Admission Dx: Justifications for Admission: Justification of Admission Dx: Yes CHF: Sev. Electrolyte Abnormal STEVE MORAN MD Mar 05, 2020 14:29
[2020-03-05 14:41] VITALS: BP 119/62
[2020-03-05 19:55] VITALS: BP 111/56
[2020-03-05] MEDS ORDERED: [UNRECOGNIZED DRUG - OTHER] IV SCH ×11 (22:00)
[2020-03-05] MEDS ORDERED: TOTAL PARENTERAL NUTRITION IV SCH ×11 (22:00)
[2020-03-05] MEDS ORDERED: DEXTROSE 70% IV SCH ×11 (22:00)
[2020-03-05] MEDS ORDERED: AMINO ACID IV SCH ×11 (22:00)
[2020-03-05] MEDS: amLODIPine BESYLATE 10 MG TABLET PO SCH (22:12)
[2020-03-05] MEDS: ASPIRIN CHEWABLE 81 MG TABLET. PO SCH (22:12)
[2020-03-05 23:06] VITALS: BP 118/65
[2020-03-06 02:53] VITALS: BP 111/57
[2020-03-06] MEDS: rifAXIMin 550 MG TABLET PO SCH ×3 (05:51→17:11)
[2020-03-06 07:00] VITALS: BP 124/69
[2020-03-06 08:07] LABS: BASO % 2 % (0-3); EOS # 0.1 x10^3/uL (0.0-0.7); EOS % 4 % (0-3); HEMATOCRIT 33.8 % (36.0-47.0); HEMOGLOBIN 11.5 g/dL (12.0-15.5); LYMPH # 0.6 x10^3/uL (1.0-4.8); LYMPH % 22 % (24-48); MEAN CORPUSCULAR HEMOGLOBIN 34 pg (25-35); MEAN CORPUSCULAR HGB CONC 34 g/dL (31-37); MEAN CORPUSCULAR VOLUME 99 fL (79-100); MONO # 0.4 x10^3/uL (0.0-1.1); MONO % 14 % (0-9); NEUT # 1.6 x10^3/uL (1.8-7.7); NEUT % 58 % (31-73); PLATELET COUNT 435 x10^3/uL (140-400); RED BLOOD COUNT 3.43 x10^6/uL (3.50-5.40); RED CELL DISTRIBUTION WIDTH 24.2 % (11.5-14.5); WHITE BLOOD COUNT 2.7 x10^3/uL (4.0-11.0)
[2020-03-06 08:26] LABS: CALCIUM 8.5 mg/dL (8.5-10.1); CREATININE 0.5 mg/dL (0.6-1.0); GFR 118.1; MAGNESIUM 1.9 mg/dL (1.8-2.4); PHOSPHORUS 3.3 mg/dL (2.6-4.7); POTASSIUM 3.8 mmol/L (3.5-5.1)
[2020-03-06 08:53] LABS: ALBUMIN 3.5 g/dL (3.4-5.0); ALBUMIN/GLOBULIN RATIO 1.2 (1.0-1.7); CALCIUM 8.6 mg/dL (8.5-10.1); CREATININE 0.5 mg/dL (0.6-1.0); GFR 118.1; POTASSIUM 4.3 mmol/L (3.5-5.1); TOTAL BILIRUBIN 0.4 mg/dL (0.2-1.0); TOTAL PROTEIN 6.4 g/dL (6.4-8.2)
[2020-03-06 10:51] VITALS: BP 127/58
--- NOTE | 2020-03-06 11:01 | PDOC ---
Date of Service: DATE: 03/06/20 TIME: 10:56 Subjective: Subjective: Says she was told not to eat fruit or whole grain bread. Was told scrambled eggs were okay but her eggs came with ham so she picked the ham out. Gets bloated/abdominal discomfort after eating. No diarrhea/stools since Friday. Restarted Xifaxan. Before admission diarrhea was very limiting - says she's not sure she could go see her PCP or her eye doctor. Objective: Vital Signs: Vital Signs Date Time Temp Pulse Resp B/P (MAP) Pulse Ox O2 Delivery O2 Flow Rate FiO2 03/06/20 10:51 98.1 94 20 127/58 (81) 96 Room Air 98.1 Labs: Laboratory Tests Test 03/05/20 11:39 03/06/20 00:12 03/06/20 06:10 03/06/20 06:35 Glucose (Fingerstick) 82 mg/dL 98 mg/dL 110 mg/dL White Blood Count 2.7 x10^3/uL Red Blood Count 3.43 x10^6/uL Hemoglobin 11.5 g/dL Hematocrit 33.8 % Mean Corpuscular Volume 99 fL Mean Corpuscular Hemoglobin 34 pg Mean Corpuscular Hemoglobin Concent 34 g/dL Red Cell Distribution Width 24.2 % Platelet Count 435 x10^3/uL Neutrophils (%) (Auto) 58 % Lymphocytes (%) (Auto) 22 % Monocytes (%) (Auto) 14 % Eosinophils (%) (Auto) 4 % Basophils (%) (Auto) 2 % Neutrophils # (Auto) 1.6 x10^3/uL Lymphocytes # (Auto) 0.6 x10^3/uL Monocytes # (Auto) 0.4 x10^3/uL Eosinophils # (Auto) 0.1 x10^3/uL Basophils # (Auto) 0.0 x10^3/uL Sodium Level 134 mmol/L Potassium Level 4.3 mmol/L Chloride Level 96 mmol/L Carbon Dioxide Level 29 mmol/L Anion Gap 9 Blood Urea Nitrogen 20 mg/dL Creatinine 0.5 mg/dL Estimated GFR (Cockcroft-Gault) 118.1 BUN/Creatinine Ratio 40 Glucose Level 90 mg/dL Calcium Level 8.6 mg/dL Phosphorus Level 3.3 mg/dL Magnesium Level 1.9 mg/dL Total Bilirubin 0.4 mg/dL Aspartate Amino Transf (AST/SGOT) 25 U/L Alanine Aminotransferase (ALT/SGPT) 36 U/L Alkaline Phosphatase 98 U/L Total Protein 6.4 g/dL Albumin 3.5 g/dL Albumin/Globulin Ratio 1.2 BLOOD CULTURE Preliminary NO GROWTH AFTER 2 DAYS PE: GEN: NAD LUNGS: CTAB HEART: RRR ABD: not too distended, non-tender, loud gurgles to left NEURO/PSYCH: A & O 3, talkative A/P: Short bowel syndrome on TPN Diarrhea - better, C Diff negative SIBO - Xifaxan restarted -- Will review w/ Dr. Worthington. Justicifation of Admission Dx: Justifications for Admission: Justification of Admission Dx: Yes CHF: Sev. Electrolyte Abnormal MARY-NENO HUTCHINS Mar 06, 2020 11:01
--- NOTE | 2020-03-06 12:13 | PDOC ---
[employer] PROGRESS NOTE Date of Service DOS: DATE: 03/06/20 TIME: 12:07 Chief Complaint Chief Complaint Patient presents with diarrhea, dehydration. History of Present Illness History of Present Illness 03/06/2020 Patient was seen and examined Patient was ambulating with help from her PT Patient is alert and oriented Patient expresses desire to stay in hospital for one more day before returning h ome Vitals/I&O Vitals/I&O: Vital Signs Date Time Temp Pulse Resp B/P (MAP) Pulse Ox O2 Delivery O2 Flow Rate FiO2 03/06/20 10:51 98.1 94 20 127/58 (81) 96 Room Air 98.1 I & O 03/05/20 03/05/20 03/06/20 14:59 22:59 06:59 Intake Total 240 ml 1600 ml 100 ml Output Total 650 ml 700 ml Balance -410 ml 900 ml 100 ml Physical Exam General: Alert Heart: Regular rate Lungs: Clear Abdomen: No hepatosplenomegaly Extremities: No edema Skin: No rashes, No significant lesion Labs Labs: Laboratory Tests Test 03/06/20 00:12 03/06/20 06:10 03/06/20 06:35 03/06/20 11:50 Glucose (Fingerstick) 98 mg/dL (70-99) 110 mg/dL (70-99) 102 mg/dL (70-99) White Blood Count 2.7 x10^3/uL (4.0-11.0) Red Blood Count 3.43 x10^6/uL (3.50-5.40) Hemoglobin 11.5 g/dL (12.0-15.5) Hematocrit 33.8 % (36.0-47.0) Mean Corpuscular Volume 99 fL (79-100) Mean Corpuscular Hemoglobin 34 pg (25-35) Mean Corpuscular Hemoglobin Concent 34 g/dL (31-37) Red Cell Distribution Width 24.2 % (11.5-14.5) Platelet Count 435 x10^3/uL (140-400) Neutrophils (%) (Auto) 58 % (31-73) Lymphocytes (%) (Auto) 22 % (24-48) Monocytes (%) (Auto) 14 % (0-9) Eosinophils (%) (Auto) 4 % (0-3) Basophils (%) (Auto) 2 % (0-3) Neutrophils # (Auto) 1.6 x10^3/uL (1.8-7.7) Lymphocytes # (Auto) 0.6 x10^3/uL (1.0-4.8) Monocytes # (Auto) 0.4 x10^3/uL (0.0-1.1) Eosinophils # (Auto) 0.1 x10^3/uL (0.0-0.7) Basophils # (Auto) 0.0 x10^3/uL (0.0-0.2) Sodium Level 134 mmol/L (136-145) Potassium Level 4.3 mmol/L (3.5-5.1) Chloride Level 96 mmol/L (98-107) Carbon Dioxide Level 29 mmol/L (21-32) Anion Gap 9 (6-14) Blood Urea Nitrogen 20 mg/dL (7-20) Creatinine 0.5 mg/dL (0.6-1.0) Estimated GFR (Cockcroft-Gault) 118.1 BUN/Creatinine Ratio 40 (6-20) Glucose Level 90 mg/dL (70-99) Calcium Level 8.6 mg/dL (8.5-10.1) Phosphorus Level 3.3 mg/dL (2.6-4.7) Magnesium Level 1.9 mg/dL (1.8-2.4) Total Bilirubin 0.4 mg/dL (0.2-1.0) Aspartate Amino Transf (AST/SGOT) 25 U/L (15-37) Alanine Aminotransferase (ALT/SGPT) 36 U/L (14-59) Alkaline Phosphatase 98 U/L (46-116) Total Protein 6.4 g/dL (6.4-8.2) Albumin 3.5 g/dL (3.4-5.0) Albumin/Globulin Ratio 1.2 (1.0-1.7) Review of Systems Review of Systems: Patient denies weakness. Patient denies nausea. Assessment and Plan Assessmemt and Plan Assessment; Diarrhea, Dehydration Plan: Full code DVT prophylaxis Home meds Continue TPN Possible transfer to rehab Comment Review of Relevant I have reviewed the following items yuni (where applicable) has been applied. Medications: Current Medications Medications (Trade) Dose Ordered Sig/Yeimi Route PRN Reason Start Time Stop Time Status Last Admin Dose Admin Sodium Chloride 90 meq/Potassium Chloride 40 meq/ Potassium Phosphate 20.4 mmol/Magnesium Sulfate 10 meq/ Calcium Gluconate 8 meq/ Multivitamins 10 ml/Chromium/ Copper/Manganese/ Seleni/Zn 1 ml/ Thiamine HCl 100 mg/Total Parenteral Nutrition/Amino Acids/Dextrose/ Fat Emuls... 1,200 ml @ 50 mls/hr TPN CONT IV 03/05/20 22:00 03/06/20 21:59 03/05/20 22:13 Rifaximin (Xifaxan) 550 mg Q8HRS PO 03/05/20 14:00 03/06/20 05:51 HUSSEIN CORRIGAN III DO Mar 06, 2020 12:13
[2020-03-06] MEDS: TPN PER PHARMACY MC PRN ×2 (12:27→12:30)
--- NOTE | 2020-03-06 12:32 | NUR ---
Pharmacy TPN Dosing Note S: LALI QUEEN is a 84 year old F Currently receiving Central Continuous TPN started 03/04/20 B:Pertinent PMH: failure to thrive Height: 4 feet, 5 inches Weight: 33.7 kg Current diet: LABS: Sodium: 134 Potassium: 4.3 Chloride: 96 Calcium: 8.6 Corrected Calcium: 9.16 Magnesium: 1.9 CO2: 29 SCr: 0.4 Glucose: 97-104 Albumin: 3.3 AST: 25 ALT: 26 TPN FORMULA: TPN TYPE: Central Continuous AMINO ACIDS: 48 gm DEXTROSE: 150 gm LIPIDS: 24 gm SODIUM CHLORIDE: 90 mEq SODIUM ACETATE: -- mEq SODIUM PHOSPHATE: -- mmol POTASSIUM CHLORIDE: 40 mEq POTASSIUM ACETATE: -- mEq POTASSIUM PHOSPHATE: 20.4 mmol MAGNESIUM: 10 mEq CALCIUM: 8 mEq INSULIN: -- units MULTIPLE VITAMIN: 10 ml TRACE ELEMENTS: 1 ml(s) TPN PLAN: Continue same TPN. R: Continue TPN at 50 ml/hr Will monitor electrolytes, glucose, and tolerance to TPN. REJI MURDOCK RP, 03/06/20 [id number] Warfarin Dosing Note S:Pharmacy consulted to assist with anticoagulation therapy started with target INR: O:LALI QUEEN is a 84 year old F with LABS: Last INR: Last HGB: Last HCT: Last PLT: Last dose of given on at Previous Regimen: Vitamin K given: Drug Interaction Changes: Ongoing Drug Interactions: A:INR of is [g RX.ACOAG] desired range. Target range for this patient is: P: Warfarin dose: [g ACOAG.TIME] Bridge Therapy: Next [g ACOAG.LABS] due [] Pharmacy anticoagulation service will continue to follow. REJI MURDOCK RPH, 03/06/20 0800
--- NOTE | 2020-03-06 14:26 | NUR ---
SS following for discharge planning. SS reviewed pt chart and discussed with pt RN. Pt is from home alone and is currently on room air. Pt's family lives close by. Pt has TPN at home through [facility], ; fax [phone], and [facility], ; fax [phone]. PT/OT recommended home with home healthcare. SS met with pt in room and discussed discharge planning. Pt reported that she wished to return to home with continued services. SS will continue to follow for discharge planning.
[2020-03-06 14:55] VITALS: BP 131/63
[2020-03-06 19:40] VITALS: BP 124/57
[2020-03-06] MEDS: ASPIRIN CHEWABLE 81 MG TABLET. PO SCH (20:53)
[2020-03-06] MEDS: amLODIPine BESYLATE 10 MG TABLET PO SCH (20:53)
[2020-03-06] MEDS ORDERED: [UNRECOGNIZED DRUG - OTHER] IV SCH ×11 (22:00)
[2020-03-06] MEDS ORDERED: AMINO ACID IV SCH ×11 (22:00)
[2020-03-06] MEDS ORDERED: DEXTROSE 70% IV SCH ×11 (22:00)
[2020-03-06] MEDS ORDERED: TOTAL PARENTERAL NUTRITION IV SCH ×11 (22:00)
[2020-03-06 23:10] VITALS: BP 127/61
[2020-03-06] MEDS: IBUPROFEN 400 MG TABLET. PO PRN (23:21)
[2020-03-07 03:45] VITALS: BP 116/56
[2020-03-07 06:02] LABS: CALCIUM 8.1 mg/dL (8.5-10.1); CREATININE 0.4 mg/dL (0.6-1.0); GFR 152.8; MAGNESIUM 1.9 mg/dL (1.8-2.4); PHOSPHORUS 3.5 mg/dL (2.6-4.7)
[2020-03-07 07:00] VITALS: BP 137/72
[2020-03-07] MEDS: rifAXIMin 550 MG TABLET PO SCH ×2 (08:41→12:32)
[2020-03-07] MEDS: TPN PER PHARMACY MC PRN (09:43)
--- NOTE | 2020-03-07 09:44 | NUR ---
Pharmacy TPN Dosing Note S: LALI QUEEN is a 84 year old F Currently receiving Central Continuous TPN started 03/04/20 B:Pertinent PMH: failure to thrive Height: 4 feet, 5 inches Weight: 34.5 kg Current diet: LABS: Sodium: 134 Potassium: 4.0 Chloride: 98 Calcium: 8.1 Corrected Calcium: 8.50 Magnesium: 1.9 CO2: 30 SCr: 0.4 Glucose: 101 Albumin: 3.5 AST: 25 ALT: 36 TPN FORMULA: TPN TYPE: Central Continuous AMINO ACIDS: 48 gm DEXTROSE: 150 gm LIPIDS: 24 gm SODIUM CHLORIDE: 90 mEq SODIUM ACETATE: -- mEq SODIUM PHOSPHATE: -- mmol POTASSIUM CHLORIDE: 40 mEq POTASSIUM ACETATE: -- mEq POTASSIUM PHOSPHATE: 20.4 mmol MAGNESIUM: 10 mEq CALCIUM: 8 mEq INSULIN: -- units MULTIPLE VITAMIN: 10 ml TRACE ELEMENTS: 1 ml(s) TPN PLAN: Continue same TPN. -cont at 50ml/hr. R: Continue TPN as ordered Will monitor electrolytes, glucose, and tolerance to TPN. ANTONY WEEMS, [facility], 03/07/20 0929
--- NOTE | 2020-03-07 10:17 | PDOC ---
Date of Service: DATE: 03/07/20 TIME: 10:13 Subjective: Subjective: "I had the runs." Describes one soft very foul-smelling stool. At home, was having very frequent totally watery stools. Tells me she's very nervous, feels like she doesn't have much time left, feels weak, wants to "get things taken care of before I ," also wants to stay another day to work w/ therapy. "Nobody believes me but I know I'm dying. They just say my labs are okay." Wonders if she just shouldn't eat at all. Objective: Objective: D/w nurse - soft stool this morning. Vital Signs: Vital Signs Date Time Temp Pulse Resp B/P (MAP) Pulse Ox O2 Delivery O2 Flow Rate FiO2 03/07/20 07:00 98.1 75 20 137/72 (93) 98 Room Air 98.1 Labs: Laboratory Tests Test 03/06/20 11:50 03/06/20 16:59 03/07/20 00:39 03/07/20 05:00 Glucose (Fingerstick) 102 mg/dL 101 mg/dL 101 mg/dL Sodium Level 134 mmol/L Potassium Level 4.0 mmol/L Chloride Level 98 mmol/L Carbon Dioxide Level 30 mmol/L Anion Gap 6 Blood Urea Nitrogen 20 mg/dL Creatinine 0.4 mg/dL Estimated GFR (Cockcroft-Gault) 152.8 Glucose Level 101 mg/dL Calcium Level 8.1 mg/dL Phosphorus Level 3.5 mg/dL Magnesium Level 1.9 mg/dL Test 03/07/20 06:46 Glucose (Fingerstick) 93 mg/dL BLOOD CULTURE Preliminary NO GROWTH AFTER 3 DAYS PE: GEN: NAD LUNGS: CTAB HEART: RRR ABD: not too distended this morning NEURO/PSYCH: A & O 3, anxious 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 Worthington. Justicifation of Admission Dx: Justifications for Admission: Justification of Admission Dx: Yes CHF: Sev. Electrolyte Abnormal NENO FAY Mar 07, 2020 10:17
[2020-03-07 11:00] VITALS: BP 140/63
--- NOTE | 2020-03-07 11:55 | SNU/HH DC ---
DISCHARGE WITH HOME HEALTH DISCHARGE INFORMATION: Condition on Discharge: Stable CODE STATUS: Code Status: Full HOME HEALTH: Face to Face: I certify this patient is under my care and that I, or a nurse practitioner or physician's dental chairside assistant working with me, had a face to face encounter that meets the physician face to face encounter requirements with this patient on []. Medical Complications: Other (Advanced age with severe debility difficulty walking fall risk refuses jail or long-term care) Prison For: Assess & Educate Safety RN For Eval/Treatment: Yes Physical Therapy For: Evalulation/Treatment Occupational Therapy For: Evaluation/Treatment Home Health Aide For: Self-care REPAIRER SCREEN CRUSHER For: Community Resources Pt Meets Homebound Status: Poor coordination w/ amb. POST DISCHARGE ORDERS: Activity Instructions for Disc: Activity as tolerated Weight Bearing Status after Di: As tolerated DIET AFTER DISCHARGE: Regular Wound/Incision Care: Change dressing CHECKS AFTER DISCHARGE: Checks after discharge: Check blood press - daily, Check your Temp as needed CERTIFICATION STATEMENT: Certification Statement: Certification Statement: Based on the above finding, I certify that this patient is confined to the home and needs intermittent jail care, physical therapy and/or speech therapy, or continues to need occupational therapy.~ This patient is under my care, and I have initiated the establishment of the plan of care.~ This patient will be followed by myself or a community physician who will periodically review the plan of care. Home Meds Active Scripts [Tpn Per Pharmacy] 1 EACH EACH No Conflict Check, 1 EACH [facility] PRN DAILY PRN for SEE COMMENTS Prov:CIRO SERNA MD 02/17/20 Reported Medications Ibuprofen (IBUPROFEN) 400 Mg Tablet, 400 MG PO PRN Q6HRS PRN for INFLAMMATION, TAB 02/15/20 Amlodipine Besylate (AMLODIPINE BESYLATE) 10 Mg Tablet, 10 MG PO HS for hypertension, TAB 02/15/20 Aspirin (ASPIRIN) 81 Mg Tab.chew, 81 MG PO DAILY, TAB.CHEW 10/03/16 [pecta 501-c] No Conflict Check 01/03/15 [complete b complex] No Conflict Check 01/03/15 [super k with K2] No Conflict Check 01/03/15 HUSSEIN CORRIGAN III DO Mar 07, 2020 11:55
--- NOTE | 2020-03-07 12:07 | DS ---
DATE OF DISCHARGE: 03/07/2020 ADMISSION DIAGNOSES: Dehydration, diarrhea and debility, advanced age. DISCHARGE DIAGNOSES: Resolving diarrhea, resolving dehydration, arthritis, advanced age, history of malnutrition, multiple bowel surgeries, short bowel syndrome, hypertension, ovarian cancer, iron deficiency anemia. HOSPITAL COURSE: The patient is a pleasant elderly female who presented with dehydration and diarrhea. She was admitted. We consulted GI, gave her IV fluids, did some physical therapy and occupational therapy. Over the past couple of days, she has returned to her baseline. She is still quite frail, but really refuses to go to [facility]. We are going to discharge home with home health. DISPOSITION: Home with home health. ACTIVITY: As tolerated. DIET: Low sodium. MEDICATIONS: Please see MRAD. TOTAL TIME: 32 minutes. HUSSEIN CORRIGAN DO DR: ANTIONETTE/alonso JOB#: [id number] / [id number]
--- NOTE | 2020-03-07 12:17 | PDOC ---
[employer] PROGRESS NOTE Date of Service DOS: DATE: 03/07/20 TIME: 12:11 Chief Complaint Chief Complaint Patient presents with diarrhea, dehydration. History of Present Illness History of Present Illness 03/07/2020 Patient was seen and examined Patient was ambulating with help from her PT Patient is alert and oriented Patient appears to be at baseline 03/06/2020 Patient was seen and examined Patient was ambulating with help from her PT Patient is alert and oriented Patient expresses desire to stay in hospital for one more day before returning home Vitals/I&O Vitals/I&O: Vital Signs Date Time Temp Pulse Resp B/P (MAP) Pulse Ox O2 Delivery O2 Flow Rate FiO2 03/07/20 07:00 98.1 75 20 137/72 (93) 98 Room Air 98.1 I & O 03/06/20 03/06/20 03/07/20 15:00 23:00 07:00 Intake Total 1100 ml 100 ml 420 ml Output Total 400 ml Balance 1100 ml 100 ml 20 ml Physical Exam General: Alert Heart: Regular rate Lungs: Clear Abdomen: No hepatosplenomegaly Extremities: No edema Skin: No rashes, No significant lesion Labs Labs: Laboratory Tests Test 03/06/20 16:59 03/07/20 00:39 03/07/20 05:00 03/07/20 06:46 Glucose (Fingerstick) 101 mg/dL (70-99) 101 mg/dL (70-99) 93 mg/dL (70-99) Sodium Level 134 mmol/L (136-145) Potassium Level 4.0 mmol/L (3.5-5.1) Chloride Level 98 mmol/L (98-107) Carbon Dioxide Level 30 mmol/L (21-32) Anion Gap 6 (6-14) Blood Urea Nitrogen 20 mg/dL (7-20) Creatinine 0.4 mg/dL (0.6-1.0) Estimated GFR (Cockcroft-Gault) 152.8 Glucose Level 101 mg/dL (70-99) Calcium Level 8.1 mg/dL (8.5-10.1) Phosphorus Level 3.5 mg/dL (2.6-4.7) Magnesium Level 1.9 mg/dL (1.8-2.4) Review of Systems Review of Systems: Patient denies nausea, patient denies weakness. Assessment and Plan Assessmemt and Plan Assessment Diarrhea Dehydration Plan Discharge with home health care Continue home meds DVT prophylaxis Continue TPN Comment Review of Relevant I have reviewed the following items yuni (where applicable) has been applied. Medications: Current Medications Medications (Trade) Dose Ordered Sig/Yeimi Route PRN Reason Start Time Stop Time Status Last Admin Dose Admin Rifaximin (Xifaxan) 550 mg TIDWMEALS PO 03/06/20 12:30 03/07/20 08:41 Sodium Chloride 90 meq/Potassium Chloride 40 meq/ Potassium Phosphate 20.4 mmol/Magnesium Sulfate 10 meq/ Calcium Gluconate 8 meq/ Multivitamins 10 ml/Chromium/ Copper/Manganese/ Seleni/Zn 1 ml/ Thiamine HCl 100 mg/Total Parenteral Nutrition/Amino Acids/Dextrose/ Fat Emuls... 1,200 ml @ 50 mls/hr TPN CONT IV 03/06/20 22:00 03/07/20 21:59 03/06/20 20:54 HUSSEIN CORRIGAN III DO Mar 07, 2020 12:17
[2020-03-07] MEDS ORDERED: Tpn Per Pharmacy MC (13:40)
--- NOTE | 2020-03-07 14:08 | NUR ---
SS following up with discharge planning. SS reviewed pt chart and discussed with pt RN. Pt is currently on room air. Discharge orders received for home healthcare. Discharge orders and clinical phoned and faxed to [facility], ; fax [phone], and [facility], ; fax [phone]. Pt's RN notified.
[2020-03-07 15:00] VITALS: BP 132/63
[2020-03-07] MEDS ORDERED: VITA1TAB19 PO (16:30)
--- NOTE | 2020-03-07 17:16 | NUR ---
Discharge Note: LALI QUEEN [address] Discharge instructions and discharge home medications reviewed with Patient and a copy given. All questions have been answered and understanding verbalized. The following instructions and handouts were given: discharge instructions, TPN instructions Discontinued lines and drains: patient DC with PICC line intact. Flushed and changed caps. Patient discharged to home with health home via wheelchair
[2020-03-07] MEDS ORDERED: AMINO ACID IV SCH ×11 (22:00)
[2020-03-07] MEDS ORDERED: DEXTROSE 70% IV SCH ×11 (22:00)
[2020-03-07] MEDS ORDERED: TOTAL PARENTERAL NUTRITION IV SCH ×11 (22:00)
[2020-03-07] MEDS ORDERED: [UNRECOGNIZED DRUG - OTHER] IV SCH ×11 (22:00)
== END 2020-03-07 17:00 | disposition home or self-care (01) | DRG 392 ==
LOC: ER 20:17 → 2 SOUTH 22:46
PROVIDERS: ADMIT Internal Medicine; ATTEND Internal Medicine
DX: R19.7 Diarrhea, unspecified (principal); Z68.1 Body mass index [BMI] 19.9 or less, adult; K91.2 Postsurgical malabsorption, not elsewhere classified; E44.0 Moderate protein-calorie malnutrition; R78.81 Bacteremia; E87.1 Hypo-osmolality and hyponatremia; E86.0 Dehydration; D64.9 Anemia, unspecified; F32.9 Major depressive disorder, single episode, unspecified; F41.9 Anxiety disorder, unspecified; I11.0 Hypertensive heart disease with heart failure; I50.9 Heart failure, unspecified; M19.90 Unspecified osteoarthritis, unspecified site; Z82.3 Family history of stroke; Z82.49 Family history of ischemic heart disease and other diseases of the circulatory system; Z85.43 Personal history of malignant neoplasm of ovary; Z86.73 Personal history of transient ischemic attack (TIA), and cerebral infarction without residual deficits; Z90.710 Acquired absence of both cervix and uterus; D50.9 Iron deficiency anemia, unspecified; K21.9 Gastro-esophageal reflux disease without esophagitis; K57.90 Diverticulosis of intestine, part unspecified, without perforation or abscess without bleeding
CPT/HCPCS: 36415; 71045; 80048; 80053; 81001; 82962; 83605; 83735; 84100; 84478; 84484; 85025; 87040; 87493; 93005; 96360; 96361; 99285; J0610; J3411; J3475; J3480; J3490; J7050; 97110-GO; 97110-GP; 97116-GP; 97530-GO; 97530-GP; 97535-GO; G0378; J7030

== ENCOUNTER 2020-11-06 18:07 | Emergency (ER) | payer MEDICARE ==
[~2020-11-06] VITALS: Ht 147.3 cm; Wt 35.0 kg
[~2020-11-06 18:07] MED LIST changes: +AMLO-187 PO; -AMLO10TA8 PO; +AMOX1TAB61 PO; +COLE1TAB PO; -LISI-338 PO; +LISI-517 PO; +VITA1TAB19 PO
--- NOTE | 2020-11-06 19:47 | PHYS DOC ---
Past Medical History Past Medical History: Anemia, Cancer, Other Additional Past Medical Histor: HYPONATREMIA, ACQUIRED SHORT BOWEL SYNDROME, ISCHEMIC COLITIS, OVARIAN CA Past Surgical History: Other Additional Past Surgical Histo: BOWEL RESECTION, PICC LINE, HERNIA REPAIR, Smoking Status: Never Smoker Alcohol Use: None General Adult EDM: Chief Complaint: OTHER COMPLAINTS HPI: HPI: Patient is a 85 year old female who was brought here by her daughter for evaluation of PICC line malfunction. Patient needs a PICC line for TPN at home. Her home health nurse informed her that the PICC line has been displaced about 3 inches out. Her daughter could not flush it today. Patient denies any abdominal pain, no chest pain, no nausea vomiting. Review of Systems: Review of Systems: Constitutional: Denies fever or chills. [] Eyes: Denies change in visual acuity. [] HENT: Denies nasal congestion or sore throat. [] Respiratory: Denies cough or shortness of breath. [] Cardiovascular: Denies chest pain or edema. [] GI: Denies abdominal pain, nausea, vomiting, bloody stools or diarrhea. [] : Denies dysuria. [] Musculoskeletal: Denies back pain or joint pain. [] Integument: Denies rash. [] Neurologic: Denies headache, focal weakness or sensory changes. [] Endocrine: Denies polyuria or polydipsia. [] Lymphatic: Denies swollen glands. [] Psychiatric: Denies depression or anxiety. [] Heart Score: C/O Chest Pain: N/A Risk Factors: Risk Factors: DM, Current or recent (<one month) smoker, HTN, HLP, family history of CAD, obesity. Risk Scores: Score 0 - 3: 2.5% MACE over next 6 weeks - Discharge Home Score 4 - 6: 20.3% MACE over next 6 weeks - Admit for Clinical Observation Score 7 - 10: 72.7% MACE over next 6 weeks - Early Invasive Strategies Allergies: Allergies: Allergies Coded Allergies Type Severity Reaction Last Updated Verified No Known Drug Allergies 12/29/19 No Physical Exam: PE: Constitutional: Well developed, well nourished, no acute distress, non-toxic appearance. [] HENT: Normocephalic, atraumatic, bilateral external ears normal, oropharynx moist, no oral exudates, nose normal. [] Eyes: PERRLA, EOMI, conjunctiva normal, no discharge. [] Neck: Normal range of motion, no tenderness, supple, no stridor. [] Cardiovascular:Heart rate regular rhythm, no murmur [] Lungs & Thorax: Bilateral breath sounds clear to auscultation [] Abdomen: Bowel sounds normal, soft, no tenderness, no masses, no pulsatile masses. [] Skin: Warm, dry, no erythema, no rash. [] Back: No tenderness, no CVA tenderness. [] Extremities: No tenderness, no cyanosis, no clubbing, ROM intact, no edema.The PICC LINE IN THE RIGHT ARM APPEARED TO BE DISPLACED , ABOUT 5 INCHES OUT. Neurologic: Alert and oriented X 3, normal motor function, normal sensory function, no focal deficits noted. [] Psychologic: Affect normal, judgement normal, mood normal. [] EKG: EKG: [] Radiology/Procedures: Radiology/Procedures: [][facility] [address] [address] IMAGING REPORT Signed PATIENT: LALI QUEENOUNT: [id number] : 1935 LOCATION: ER AGE: 85 SEX: F EXAM STATUS: REG ER ORD. PHYSICIAN: SARA KELLEY DO REASON: picc line displaced PROCEDURE: CHEST AP ONLY EXAM: CHEST ONE VIEW. HISTORY: PICC line placement. COMPARISON: 05/19/2020. FINDINGS: A frontal view of the chest is obtained. A right arm PICC line terminates in the right upper arm medially. There are some limitations from rotation to the right. A right paratracheal opacity likely corresponds with tortuous vasculature in the setting of rotation. Vertebroplasty changes are noted at multiple levels. Osteopenia is moderate to severe. Chronic The projection is kyphotic with bibasilar atelectasis. Subacute to chronic right rib fractures are noted. There is no pneumothorax or clear pleural effusion. The heart is not enlarged. There are atherosclerotic calcifications of the aorta. IMPRESSION: 1. The right sided catheter terminates in the right upper arm. 2. Kyphotic projection. Bibasilar atelectasis. Electronically signed by: Shen Holliday MD (11/06/2020 8:16 PM) [facility] DICTATED and SIGNED BY: PARVIN HOLLIDAY MD DATE: 11/06/[id number] 0 Course & Med Decision Making: Course & Med Decision Making Pertinent Labs and Imaging studies reviewed. (See chart for details) The PICC LINE WAS DISPLACED OUT. IT WAS NOT FUNCTIONAL. IT was pulled out then by this physician. Patient will need to come back to outpatient radiology tomorrow for PICC line placement. Discussed with the visiting housekeeper who called the INTERVENTIONAL RADIOLOGY DEPARTMENT TO ARRANGE FOR THE TIME. Dragon Disclaimer: Dragon Disclaimer: This electronic medical record was generated, in whole or in part, using a voice recognition dictation system. Departure Departure Impression: Primary Impression: Malfunction of peripheral inserted central catheter Disposition: HOME / SELF CARE / HOMELESS Condition: STABLE Referrals: ARMEN BRAND MD (PCP) Patient Instructions: PICC, Removal and Care After Additional Instructions: Interventional Radiology department will call you tomorrow to come back to Outpatient for picc line replacement tomorrow. SARA KELLEY DO Nov 06, 2020 19:47
[2020-11-06] MEDS ORDERED: NITROGLYCERIN SUBLINGUAL 0.4 MG BOTTLE OF 25. SL PRN (20:00)
--- NOTE | 2020-11-06 20:19 | RAD ---
EXAM: CHEST ONE VIEW. HISTORY: PICC line placement. COMPARISON: 05/19/2020. FINDINGS: A frontal view of the chest is obtained. A right arm PICC line terminates in the right uppe r arm medially. There are some limitations from rotation to the right. A right paratracheal opacity likely corresponds with tortuous vasculature in the setting of rotation. Vertebroplasty changes are noted at multiple levels. Osteopenia is moderate to severe. Chronic The p rojection is kyphotic with bibasilar atelectasis. Subacute to chronic right rib fractures are noted. There is no pneumothorax or clear pleural effusion. The heart is not enlarged. There are atherosclero tic calcifications of the aorta. IMPRESSION: 1. The right sided catheter terminates in the right upper arm. 2. Kyphotic projection. Bibasilar atelectasis. Electronically signed by: Shen Holliday MD (11/06/2020 8:16 PM) [facility]
[2020-11-06 20:25] VITALS: BP 128/88
[2020-11-07] MEDS ORDERED: LORA0.5T96 PO (12:13)
[2020-11-07] MEDS ORDERED: ACET325T9 PO (12:13)
[2020-11-07] MEDS ORDERED: FENT1PAT13 TD (12:13)
== END 2020-11-06 20:27 | disposition home or self-care (01) ==
LOC: ER 18:07
DX: T82.514A Breakdown (mechanical) of infusion catheter, initial encounter (principal); D64.9 Anemia, unspecified; Z98.890 Other specified postprocedural states; Z85.9 Personal history of malignant neoplasm, unspecified
CPT/HCPCS: 71045; 99283

== ENCOUNTER 2020-11-07 10:22 | Outpatient (CLI) | payer MEDICARE ==
[~2020-11-07] VITALS: Ht 149.9 cm; Wt 35.4 kg
[2020-11-07 10:50] VITALS: BP 122/65
[2020-11-07] MEDS ORDERED: LIDOCAINE WITH 8.4% SOD BICARB 3 ML DISP.SYRIN. ONE (10:52)
[2020-11-07] MEDS ORDERED: LIDOCAINE WITH 8.4% SOD BICARB 3 ML DISP.SYRIN. IJ ONE (11:00)
[2020-11-07] MEDS ORDERED: IOHEXOL 240 MG/ML 50ML VIAL. ONE (11:20)
[2020-11-07] MEDS ORDERED: IOHEXOL 240 MG/ML 50ML VIAL. IJ ONE (11:30)
[2020-11-07] MEDS ORDERED: CONTRAST GIVEN. MC PRN (11:30)
--- NOTE | 2020-11-07 11:30 | NUR ---
Pt here for PICC line replacement, family with patient. Patient arrived in wheelchair, taken to IR for procedure, pt tolerated well. DC instructions provided by Melody LARSON and pt dc'd with family to home.
[2020-11-07] MEDS ORDERED: FENT1PAT13 TD (12:13)
[2020-11-07] MEDS ORDERED: LORA0.5T96 PO (12:13)
[2020-11-07] MEDS ORDERED: ACET325T9 PO (12:13)
--- NOTE | 2020-11-08 09:12 | RAD ---
Exam: Fluoroscopic and ultrasound guided right percutaneous inserted central venous catheter placement 11/08/2020 7:08 AM .Indication: TPN Technique: Informed oral and written consent were obtained. The right upper extremity was prepped and draped using sterile barrier technique. All elements of maximal sterile barrier technique including the use of a cap, mask, sterile gown, sterile gloves, large sterile sheet, appropriate hand hygiene, and 2% chlorhexidine for cutaneous antisepsis (or acceptable alternative antiseptic per current guidelines) were followed for this procedure.. Real-time ultrasound demonstrated a patent right basilic vein which was prepped and draped in usual sterile fashion. 1% lidocaine used for local anesthesia. Using real-time ultrasound guidance the access needle percutaneously punctured the selected right basilic vein. Reference ultrasound images were saved to the medical record. A guidewire was advanced through the needle centrally, but resistance was met. A venogram was performed demonstrating irregularity and some areas stenosis within the axillary vein, and subclavian vein, likely secondary to long-term catheter. Placement. The guidewire was manipulated into the IVC PICC line was placed with tip at the cavoatrial junction under fluoroscopy. Sterile dressings were applied. Catheter was found to flush and aspirate normally. No immediate complications are identified. FLUORO TIME: 3.9 minutes DOSE AREA PRODUCT: 6 Gycm2 Impression: 1.Ultrasound and fluoroscopically guided placement of a right upper extremity PICC line. 2., Axillary and subclavian vein stenosis
== END 2020-11-07 11:45 | disposition home or self-care (01) ==
LOC: INTRAD 10:22
PROVIDERS: ATTEND Internal Medicine
DX: I87.1 Compression of vein (principal); I10 Essential (primary) hypertension; M81.0 Age-related osteoporosis without current pathological fracture; F41.9 Anxiety disorder, unspecified; Z85.828 Personal history of other malignant neoplasm of skin; Z90.710 Acquired absence of both cervix and uterus; Z98.890 Other specified postprocedural states; Z79.82 Long term (current) use of aspirin; Z79.899 Other long term (current) drug therapy
CPT/HCPCS: 36573; 75820; C1751; C1892; J3490; Q9966; 77001

== ENCOUNTER 2020-12-05 21:20 | Inpatient (IN) | payer MEDICARE ==
[~2020-12-05] VITALS: Ht 160 cm; Wt 32.7 kg
[~2020-12-05 21:20] MED LIST changes: +ACET325T9 PO; +FENT1PAT13 TD; -LACT1CAP29 PO; +LACT1CAP37 PO; +LORA0.5T96 PO
--- NOTE | 2020-12-05 22:39 | PHYS DOC ---
Past Medical History Past Medical History: Anemia, Cancer, Other Additional Past Medical Histor: HYPONATREMIA, ACQUIRED SHORT BOWEL SYNDROME, ISCHEMIC COLITIS, OVARIAN CA Past Surgical History: Other Additional Past Surgical Histo: BOWEL RESECTION, PICC LINE, HERNIA REPAIR, Smoking Status: Never Smoker Alcohol Use: None General Adult EDM: Chief Complaint: FEVER HPI: HPI: Patient is a 85 year old male brought in by EMS for the evaluation of fevers and altered mental status. History obtained from daughter. Daughter states patient has a past medical history of short-bowel syndrome and ON TPN. Patient had a PICC line replaced 2-3 weeks ago after patient accidently pulled out her initial PICC line. Daughter states 3 to 4 days after PICC line replacement patient started to run a fever of 99. Patient was evaluated by home health and her primary care physician who ordered basic labs and blood cultures. Over the last 3 days patient has had a fever greater than 102. Daughter states during this time patient has had episodes of confusion where she is using her cell phone to try to change the channel on her TV. There is no history or complaint of headache chest pain shortness of breath nausea vomiting. Review of Systems: Review of Systems: Constitutional: positive fever Eyes: Denies change in visual acuity. [] HENT: Denies nasal congestion or sore throat. [] Respiratory: Denies cough or shortness of breath. [] Cardiovascular: Denies chest pain or edema. [] GI: Denies abdominal pain, nausea, vomiting, bloody stools or diarrhea. [] : Denies dysuria. [] Musculoskeletal: Denies back pain or joint pain. [] Integument: Denies rash. [] Neurologic: Denies headache, focal weakness or sensory changes. [positive confusion] Endocrine: Denies polyuria or polydipsia. [] Lymphatic: Denies swollen glands. [] Psychiatric: Denies depression or anxiety. [] Heart Score: C/O Chest Pain: N/A Risk Factors: Risk Factors: DM, Current or recent (<one month) smoker, HTN, HLP, family history of CAD, obesity. Risk Scores: Score 0 - 3: 2.5% MACE over next 6 weeks - Discharge Home Score 4 - 6: 20.3% MACE over next 6 weeks - Admit for Clinical Observation Score 7 - 10: 72.7% MACE over next 6 weeks - Early Invasive Strategies Allergies: Allergies: Allergies Coded Allergies Type Severity Reaction Last Updated Verified No Known Drug Allergies 12/29/19 No Physical Exam: PE: General: alert, no acute distress. Skin: warm, dry and intact. Head:: Normocephalic, atraumatic. Neck: Trachea midline. Eyes: EOMI, Normal conjunctiva, No drainage CARDIOVASCULAR: Regular rate and rhythm RESPIRATORY: No respiratory distress Back: Full range of motion. MUSCULOSKELETAL: Full range of motion of bilateral upper and lower extremities. GASTROINTESTINAL: Abdomen soft without rebound or guarding. NEUROLOGICAL: Alert No neurological deficits observed Psychiatric: Cooperative. Normal judgment EKG: EKG: [] Radiology/Procedures: Radiology/Procedures: [] Impression: INDICATION: Fever TECHNIQUE: Frontal view of the chest Comparisons: 11/06/2020 FINDINGS: The cardiomediastinal silhouette and pulmonary vessels are within normal limits. Evaluation limited secondary to kyphotic positioning. No consolidation identified. IMPRESSION: No focal consolidation identified however evaluation is limited secondary to kyphotic positioning. Electronically signed by: Mayelin Bryan MD (12/05/2020 10:35 PM) [facility] Course & Med Decision Making: Course & Med Decision Making Pertinent Labs and Imaging studies reviewed. (See chart for details) [] Was evaluated for chief complaint. Work-up consisted of laboratory analysis and radiologic imaging. Results reviewed and discussed with patient and daughter. Patient's urine is pending. Current work-up shows no source of infection. Patient with wbc of 15k. Patient treated with Vancomycin. Questionable source for fever, leukocystosis, and AMS-- Urine or PIcc line. Admitted to hospitalist. Roseann Disclaimer: Roseann Disclaimer: This electronic medical record was generated, in whole or in part, using a voice recognition dictation system. Departure Departure Impression: Primary Impression: Fever Additional Impression: Confusion Disposition: ADMITTED INPATIENT Admitting Physician: HIMS Referrals: ARMEN BRAND MD (PCP) DRAGAN BUSTILLO DO December 05, 2020 22:39
[2020-12-05 22:51] LABS: BASO # 0.1 x10^3/uL (0.0-0.2); BASO % 1 % (0-3); EOS % 0 % (0-3); HEMATOCRIT 24.7 % (36.0-47.0); HEMOGLOBIN 7.9 g/dL (12.0-15.5); LYMPH # 0.7 x10^3/uL (1.0-4.8); LYMPH % 5 % (24-48); MEAN CORPUSCULAR HEMOGLOBIN 26 pg (25-35); MEAN CORPUSCULAR HGB CONC 32 g/dL (31-37); MEAN CORPUSCULAR VOLUME 82 fL (79-100); MONO # 1.3 x10^3/uL (0.0-1.1); MONO % 8 % (0-9); NEUT # 13.1 x10^3/uL (1.8-7.7); NEUT % 86 % (31-73); PLATELET COUNT 244 x10^3/uL (140-400); RED BLOOD COUNT 3.01 x10^6/uL (3.50-5.40); RED CELL DISTRIBUTION WIDTH 16.8 % (11.5-14.5); WHITE BLOOD COUNT 15.3 x10^3/uL (4.0-11.0)
[2020-12-05 23:00] LABS: CALCIUM 8.7 mg/dL (8.5-10.1); CREATININE 0.6 mg/dL (0.6-1.0); GFR 95.5; POTASSIUM 3.9 mmol/L (3.5-5.1)
[2020-12-05 23:07] LABS: ALBUMIN 2.7 g/dL (3.4-5.0); ALBUMIN/GLOBULIN RATIO 0.7 (1.0-1.7); TOTAL BILIRUBIN 0.4 mg/dL (0.2-1.0); TOTAL PROTEIN 6.7 g/dL (6.4-8.2)
[2020-12-05 23:24] LABS: % BANDS 2 % (0-9); % LYMPHS 4 % (24-48); % MONOS 6 % (0-10); % SEGS 88 % (35-66); PLT ESTIMATE ADEQUATE (ADEQUATE)
[2020-12-05 23:25] LABS: TOXIC GRANULATION SLIGHT
[2020-12-05] MEDS ORDERED: IV NORMAL SALINE 1000ML BAG 1,000 ML IV ONE (23:30)
[2020-12-05] MEDS ORDERED: ONDANSETRON PF 4 MG/2 ML VIAL. IV PRN (23:30)
[2020-12-06] VITALS (8 sets, daily range): BP systolic 81–115; BP diastolic 48–64
[2020-12-06 00:42] LABS: BILIRUBIN,URINE NEGATIVE (NEG); CLARITY,URINE CLEAR; COLOR,URINE YELLOW; NITRITE,URINE NEGATIVE (NEG); PH,URINE 5.5 (<5.0-8.0); PROTEIN,URINE NEGATIVE (NEG-TRACE); UROBILINOGEN,URINE 0.2 mg/dL (0.2 mg/dL)
[2020-12-06 00:52] LABS: AMORPHOUS SEDIMENT,UR PRESENT /HPF; BACTERIA,URINE FEW /HPF (0-FEW); RBC,URINE 0 /HPF (0-2)
[2020-12-06] MEDS ORDERED: VANCOMYCIN PER PHARMACY MC PRN (06:00)
[2020-12-06] MEDS ORDERED: VANCOMYCIN 750 MG in IV NORMAL SALINE 250ML 250 ML IV ONE (06:00)
--- NOTE | 2020-12-06 06:36 | NUR ---
Pharmacy Vancomycin Dosing Note S:Consulted to monitor and dose vancomycin started 12/06/20. O:LALI QUEEN is a 85 year old F with Bacteremia UTI . Height: 5 feet, 3 inches Weight: 35.8 kg [place] Body Weight: 52.40 Adjusted Body Weight: 45.76 Dosing Weight: Actual Other Antibiotics: LABS: Last BUN: 12 Last Creatinine: 0.6 Creatinine Clearance: 24 mL/min Last WBC: 15.3 Last Procalcitonin: Tmax (past 24 hours): Microbiology: I/O: Drug Levels: Last level: on at Last dose given 12/06/20 at 0600 Vancomycin Dosing: Loading Dose: 750 mg x1 Dosing Weight: Actual Target Trough: 10-20 A: Based on: WT AND CRCL P: 1. Begin Vancomycin 500 mg IV q24h 2. Follow up Trough level on 12/08/20 at 0630 3. Pharmacy will continue to monitor, follow and adjust therapy as needed. ZAHRA SANDOVAL RPH, 12/06/20 0636 Signed: 12/06/20 at 0637 by ZAHRA SANDOVAL RPH PHA
--- NOTE | 2020-12-06 10:06 | PDOC1 ---
History and Physical Date of Admission Date of Admission DATE: 12/06/20 TIME: 10:04 Identification/Chief Complaint Chief Complaint fever, weakness, confusion, possible PICC LINE INFECTION History of Present Illness History of Present Illness History of Present Illness History of Present Illness Patient is an 84-year-old female with past medical history CVA, HTN, ovarian cancer, short bowel syndrome, compression fractures, who presented to the ER with complaint of fever, she had a positive blood culture reported to be possible staph this week Daughter states 3 to 4 days after PICC line replacement patient started to run a fever of 99. Patient was evaluated by home health and her primary care physician who ordered basic labs and blood cultures. Over the last 3 days patient has had a fever greater than 102. Daughter states during this time patient has had episodes of confusion WBC IN ER 15.3 past medical history of short-bowel syndrome and ON TPN. plan echo, id and cardiology consults admit temp now 101 F , WILL repeat blood cultures again Follow up labs and cultures ID CONSULT D/C PICC line IF source crp,, procalcitonin trend labs ECHO O2 SUPPORT Past Medical History Past Medical History Past Medical History Past Medical History: Anemia, Cancer, Other Additional Past Medical Histor: HYPONATREMIA, ACQUIRED SHORT BOWEL SYNDROME, ISCHEMIC COLITIS, OVARIAN CA Past Surgical History: Other Additional Past Surgical Histo: BOWEL RESECTION, PICC LINE, HERNIA REPAIR, Smoking Status: Never Smoker Alcohol Use: None FHX CANCER Cardiovascular: HTN CENTRAL NERVOUS SYSTEM: CVA GI: Diverticulosis, GERD, Other Heme/Onc: Other Hepatobiliary: No pertinent hx Psych: No pertinent hx Rheumatologic: No pertinent hx Infectious disease: Bacterial vaginosis Renal/: No pertinent hx Endocrine: No pertinent hx Past Surgical History Past Surgical History: Cataract Removal, Hysterectomy Family History Family History: Hypertension, Stroke Social History Smoke: No ALCOHOL: none Drugs: None Current Problem List Problem List Problems Medical Problems: (1) Confusion Status: Acute (2) Fever Status: Acute Current Medications Current Medications Current Medications Sodium Chloride 1,000 ml @ 1,000 mls/hr 1X ONCE IV Last administered on 12/05/20at 23:00; Start 12/05/20 at 23:30; Stop 12/06/20 at 00:29; Status DC Ondansetron HCl (Zofran) 4 mg PRN Q8HRS PRN IV NAUSEA/VOMITING 1ST CHOICE; Start 12/05/20 at 23:30; Stop 12/06/20 at 23:29 Vancomycin HCl (Vanco Per Pharmacy) 1 each PRN DAILY PRN MC SEE COMMENTS Last administered on 12/06/20at 06:36; Start 12/06/20 at 06:00 Vancomycin HCl 750 mg/Sodium Chloride 250 ml @ 250 mls/hr 1X ONCE IV Last administered on 12/06/20at 06:21; Start 12/06/20 at 06:00; Stop 12/06/20 at 06:59; Status DC Vancomycin HCl 500 mg/Sodium Chloride 100 ml @ 100 mls/hr DAILY07 IV ; Start 12/07/20 at 07:00 Vancomycin HCl (Vancomycin Trough Level) 1 each 1X ONCE MC ; Start 12/08/20 at 06:30; Stop 12/08/20 at 06:31 Linezolid/Dextrose 300 ml @ 300 mls/hr 1X ONCE IV Last administered on 12/06/20at 09:56; Start 12/06/20 at 09:45; Stop 12/06/20 at 10:44 Active Scripts Active [Tpn Per Pharmacy] 1 EACH Each 1 Each MC PRN DAILY PRN [Tpn Per Pharmacy] 1 EACH Each 1 Each MC PRN DAILY PRN Reported FENTANYL 12mcg/hr (Fentanyl) 1 Each Patch.td72 1 Patch TD Q72H Tylenol (Acetaminophen) 325 Mg Tablet 1 Tab PO PRN Q4HRS Ativan (Lorazepam) 0.5 Mg Tablet 0.5 Mg PO BID Colestid (Colestipol Hcl) 1 Gm Tablet 2 G PO QHS 90 Days Amlodipine Besylate 10 Mg Tablet 10 Mg PO HS Aspirin 81 Mg Tab.chew 81 Mg PO DAILY Allergies Allergies: Coded Allergies: No Known Drug Allergies (Unverified , 12/29/19) ROS General: YES: Chills, Fatigue, Appetite PSYCHOLOGICAL ROS: YES: Concentration difficultie, Disorientation; No: Anxiety, Behavioral Disorder, Decreased libido, Depression, Hallucinations, Hostility, Irritablity, Memory difficulties, Mood Swings, Obsessive thoughts, Physical abuse, Sexual abuse, Sleep disturbances, Suicidal ideation, Other Eyes: No Blurry vision, No Decreased vision, No Double vision, No Dry eyes, No Excessive tearing, No Eye Pain, No Itchy Eyes, No Loss of vision, No Photophobia, No Scotomata, No Uses contacts, No Uses glasses, No Other HEENT: No: Heacaches, Visual Changes, Hearing change, Nasal congestion, Nasal discharge, Oral lesions, Sinus pain, Sore Throat, Epistaxis, Sneezing, Snoring, Tinnitus, Vertigo, Vocal changes, Other ALLERGY AND IMMUNOLOGY: No: Hives, Insect Bite Sensitivity, Itchy/Watery Eyes, Nasal Congestion, Post Nasal Drip, Seasonal Allergies, Other Hematological and Lymphatic: No: Bleeding Problems, Blood Clots, Blood Transfusions, Brusing, Night Sweats, Pallor, Swollen Lymph Nodes, Other ENDOCRINE: No: Breast Changes, Galactorrhea, Hair Pattern Changes, Hot Flashes, Malaise/lethargy, Mood Swings, Palpitations, Polydipsia/polyuria, Skin Changes, Temperature Intolerance, Unexpected Weight Changes, Other Breast: No New/Changing Breast Lumps, No Nipple changes, No Nipple discharge, No Other Respiratory: No: Cough, Hemoptysis, Orthopnea, Pleuritic Pain, Shortness of breath, SOB with excertion, Sputum Changes, Stridor, Tachypnea, Wheezing, Other Cardiovascular: No Chest Pain, No Palpitations, No Orthopnea, No Paroxysmal Noc. Dyspnea, No Edema, No Lt Headedness, No Other Gastrointestinal: No Nausea, No Vomiting, No Abdominal Pain, No Diarrhea, No Constipation, No Melena, No Hematochezia, No Other Genitourinary: No Dysuria, No Frequency, No Incontinence, No Hematuria, No Retention, No Discharge, No Urgency, No Pain, No Flank Pain, No Other, No , No , No , No , No , No , No Musculoskeletal: Yes Gait Disturbance, Yes Joint Stiffness; No Joint Pain, No Joint Swelling, No Muscle Pain, No Muscular Weakness, No Pain In:, No Swelling In:, No Other Neurological: Yes Confusion, Yes Gait Disturbance; No Behavorial Changes, No Bowel/Bladder ControlChng, No Dizziness, No Headaches, No Impaired Coord/balance, No Memory Loss, No Numbness/Tingling, No Seizures, No Speech Problems, No Tremors, No Visual Changes, No Weakness, No Other Skin: Yes Dry Skin; No Eczema, No Hair Changes, No Lumps, No Mole Changes, No Mottling, No Nail Changes, No Pruritus, No Rash, No Skin Lesion Changes, No Other, No Acne Physical Exam General: Alert, Cooperative, mild distress HEENT: EOMI, Mucous membr. moist/pink Lungs: Clear to auscultation, Normal air movement Heart: RRR Breasts: Not examined Abdomen: Normal bowel sounds, Soft, No masses, Other (THIN) Rectal Exam: not examined PELVIC: Examination not indicated Extremities: No cyanosis Neuro: Normal speech, Cranial nerves 3-12 NL Psych/Mental Status: Other (CONFUSED BUT PLEASANT) Vitals Vitals Vital Signs Date Time Temp Pulse Resp B/P (MAP) Pulse Ox O2 Delivery O2 Flow Rate FiO2 12/06/20 07:00 99.3 107 20 115/64 (81) 90 Nasal Cannula 2.0 99.3 Labs Labs Laboratory Tests Test 12/05/20 22:40 12/06/20 00:35 12/06/20 01:50 12/06/20 06:00 White Blood Count 15.3 x10^3/uL (4.0-11.0) Red Blood Count 3.01 x10^6/uL (3.50-5.40) Hemoglobin 7.9 g/dL (12.0-15.5) Hematocrit 24.7 % (36.0-47.0) Mean Corpuscular Volume 82 fL (79-100) Mean Corpuscular Hemoglobin 26 pg (25-35) Mean Corpuscular Hemoglobin Concent 32 g/dL (31-37) Red Cell Distribution Width 16.8 % (11.5-14.5) Platelet Count 244 x10^3/uL (140-400) Neutrophils (%) (Auto) 86 % (31-73) Lymphocytes (%) (Auto) 5 % (24-48) Monocytes (%) (Auto) 8 % (0-9) Eosinophils (%) (Auto) 0 % (0-3) Basophils (%) (Auto) 1 % (0-3) Neutrophils # (Auto) 13.1 x10^3/uL (1.8-7.7) Lymphocytes # (Auto) 0.7 x10^3/uL (1.0-4.8) Monocytes # (Auto) 1.3 x10^3/uL (0.0-1.1) Eosinophils # (Auto) 0.0 x10^3/uL (0.0-0.7) Basophils # (Auto) 0.1 x10^3/uL (0.0-0.2) Segmented Neutrophils % 88 % (35-66) Band Neutrophils % 2 % (0-9) Lymphocytes % 4 % (24-48) Monocytes % 6 % (0-10) Toxic Granulation Slight Platelet Estimate Adequate (ADEQUATE) Sodium Level 136 mmol/L (136-145) Potassium Level 3.9 mmol/L (3.5-5.1) Chloride Level 102 mmol/L (98-107) Carbon Dioxide Level 28 mmol/L (21-32) Anion Gap 6 (6-14) Blood Urea Nitrogen 12 mg/dL (7-20) Creatinine 0.6 mg/dL (0.6-1.0) Estimated GFR (Cockcroft-Gault) 95.5 BUN/Creatinine Ratio 20 (6-20) Glucose Level 98 mg/dL (70-99) Calcium Level 8.7 mg/dL (8.5-10.1) Total Bilirubin 0.4 mg/dL (0.2-1.0) Aspartate Amino Transf (AST/SGOT) 14 U/L (15-37) Alanine Aminotransferase (ALT/SGPT) 8 U/L (14-59) Alkaline Phosphatase 93 U/L (46-116) Total Protein 6.7 g/dL (6.4-8.2) Albumin 2.7 g/dL (3.4-5.0) Albumin/Globulin Ratio 0.7 (1.0-1.7) Urine Collection Type Unknown Urine Color Yellow Urine Clarity Clear Urine pH 5.5 (<5.0-8.0) Urine Specific [place] 1.010 (1.000-1.030) Urine Protein Negative mg/dL (NEG-TRACE) Urine Glucose (UA) Negative mg/dL (NEG) Urine Ketones (Stick) Negative mg/dL (NEG) Urine Blood Negative (NEG) Urine Nitrite Negative (NEG) Urine Bilirubin Negative (NEG) Urine Urobilinogen Dipstick 0.2 mg/dL (0.2 mg/dL) Urine Leukocyte Esterase Negative (NEG) Urine RBC 0 /HPF (0-2) Urine WBC 5-10 /HPF (0-4) Urine Squamous Epithelial Cells Occ /LPF Urine Amorphous Sediment Present /HPF Urine Bacteria Few /HPF (0-FEW) Urine Mucus Slight /LPF Troponin I Quantitative < 0.017 ng/mL (0.000-0.055) < 0.017 ng/mL (0.000-0.055) Laboratory Tests Test 12/05/20 22:40 12/06/20 00:35 12/06/20 01:50 12/06/20 06:00 White Blood Count 15.3 x10^3/uL (4.0-11.0) Red Blood Count 3.01 x10^6/uL (3.50-5.40) Hemoglobin 7.9 g/dL (12.0-15.5) Hematocrit 24.7 % (36.0-47.0) Mean Corpuscular Volume 82 fL (79-100) Mean Corpuscular Hemoglobin 26 pg (25-35) Mean Corpuscular Hemoglobin Concent 32 g/dL (31-37) Red Cell Distribution Width 16.8 % (11.5-14.5) Platelet Count 244 x10^3/uL (140-400) Neutrophils (%) (Auto) 86 % (31-73) Lymphocytes (%) (Auto) 5 % (24-48) Monocytes (%) (Auto) 8 % (0-9) Eosinophils (%) (Auto) 0 % (0-3) Basophils (%) (Auto) 1 % (0-3) Neutrophils # (Auto) 13.1 x10^3/uL (1.8-7.7) Lymphocytes # (Auto) 0.7 x10^3/uL (1.0-4.8) Monocytes # (Auto) 1.3 x10^3/uL (0.0-1.1) Eosinophils # (Auto) 0.0 x10^3/uL (0.0-0.7) Basophils # (Auto) 0.1 x10^3/uL (0.0-0.2) Segmented Neutrophils % 88 % (35-66) Band Neutrophils % 2 % (0-9) Lymphocytes % 4 % (24-48) Monocytes % 6 % (0-10) Toxic Granulation Slight Platelet Estimate Adequate (ADEQUATE) Sodium Level 136 mmol/L (136-145) Potassium Level 3.9 mmol/L (3.5-5.1) Chloride Level 102 mmol/L (98-107) Carbon Dioxide Level 28 mmol/L (21-32) Anion Gap 6 (6-14) Blood Urea Nitrogen 12 mg/dL (7-20) Creatinine 0.6 mg/dL (0.6-1.0) Estimated GFR (Cockcroft-Gault) 95.5 BUN/Creatinine Ratio 20 (6-20) Glucose Level 98 mg/dL (70-99) Calcium Level 8.7 mg/dL (8.5-10.1) Total Bilirubin 0.4 mg/dL (0.2-1.0) Aspartate Amino Transf (AST/SGOT) 14 U/L (15-37) Alanine Aminotransferase (ALT/SGPT) 8 U/L (14-59) Alkaline Phosphatase 93 U/L (46-116) Total Protein 6.7 g/dL (6.4-8.2) Albumin 2.7 g/dL (3.4-5.0) Albumin/Globulin Ratio 0.7 (1.0-1.7) Urine Collection Type Unknown Urine Color Yellow Urine Clarity Clear Urine pH 5.5 (<5.0-8.0) Urine Specific [place] 1.010 (1.000-1.030) Urine Protein Negative mg/dL (NEG-TRACE) Urine Glucose (UA) Negative mg/dL (NEG) Urine Ketones (Stick) Negative mg/dL (NEG) Urine Blood Negative (NEG) Urine Nitrite Negative (NEG) Urine Bilirubin Negative (NEG) Urine Urobilinogen Dipstick 0.2 mg/dL (0.2 mg/dL) Urine Leukocyte Esterase Negative (NEG) Urine RBC 0 /HPF (0-2) Urine WBC 5-10 /HPF (0-4) Urine Squamous Epithelial Cells Occ /LPF Urine Amorphous Sediment Present /HPF Urine Bacteria Few /HPF (0-FEW) Urine Mucus Slight /LPF Troponin I Quantitative < 0.017 ng/mL (0.000-0.055) < 0.017 ng/mL (0.000-0.055) Images Images EXAM: Chest CT without intravenous contrast. HISTORY: Pneumonia. TECHNIQUE: Computed tomographic images of the chest were obtained without contrast. Multiplanar reformatting was performed. *One or more of the following individualized dose reduction techniques were utilized for this examination: 1. Automated exposure control. 2. Adjustment of the mA and/or kV according to patient size. 3. Use of iterative reconstruction technique. COMPARISON: CT abdomen and pelvis dated 05/16/2020. FINDINGS: There are stable small left greater than right pleural effusions. There is stable partial left greater than right lower lobe consolidation and collapse. There is no pneumothorax. There is mild biapical pleural parenchymal scarring. The heart is upper normal in size. There is aortic and aortic branch vessel atherosclerosis. There is a catheter within the superior cavoatrial junction. There are nonspecific mediastinal and hilar lymph nodes. There are calcified nodules within the right thyroid lobe and thyroid isthmus. These are benign in appearance. There are multiple hepatic cysts, the largest of which is seen measuring 6.4 cm. The spleen is normal in size. There is bilateral adrenal gland thickening without a discrete nodule. There is heavily calcified atherosclerotic plaque within the abdominal aorta and main aortic branch vessels. There is thoracolumbar scoliosis and thoracic kyphosis. There is bone demineralization. There are severe chronic compression fractures with vertebroplasty changes at T5, T6, T7, T8 and T9 and there is a moderate chronic compression fracture with vertebroplasty changes at T12. There is a severe chronic compression fracture without vertebroplasty changes at T4, moderate to severe chronic compression fracture without vertebroplasty changes at T11 and there are mild chronic compression fractures without vertebroplasty changes at T3 and T10 and at all lumbar levels. There is no convincing acute rib fracture. IMPRESSION: 1. Small left greater than right pleural effusions and left greater than right lower lobe partial consolidation and collapse. This is stable in appearance. 2. Multiple hepatic cysts. 3. 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 Electronically signed by: Kianna Hand MD (05/18/2020 11:15 AM) [id number] EXAM: Abdomen and pelvis CT without intravenous contrast. HISTORY: Hydronephrosis. TECHNIQUE: Computed tomographic images of the abdomen and pelvis were obtained without contrast. Multiplanar reformatting was performed. *One or more of the following individualized dose reduction techniques were utilized for this examination: 1. Automated exposure control. 2. Adjustment of the mA and/or kV according to patient size. 3. Use of iterative reconstruction technique. COMPARISON: 02/16/2020. FINDINGS: Evaluation of the lower thorax demonstrates small left greater than right pleural effusions. There is partial left greater the right lower lobe consolidation superimposed on atelectasis. The heart is mildly enlarged. There is aortic and coronary artery atherosclerosis. There are multiple hepatic cysts, the largest of which is seen within the right hepatic lobe measuring 6.3 cm. There is hepatomegaly. No convincing solid hepatic lesion is seen on this noncontrast exam. There is cholelithiasis. The pancreas is not well seen due to the absence of intra-abdominal wall fat and absence of contrast. No convincing pancreatic lesion is seen. The spleen is normal in size. There is adrenal gland thickening without a discrete nodule. There is stable bilateral renal pelvicaliectasis. There is a Gamez catheter within the urinary bladder. There is gas within the bladder due to recent catheterization. The bladder wall is thickened, possibly due to underdistention or cystitis. There are bowel anastomosis due to prior bowel resection. There is colonic diverticulosis. There is no diverticulitis. There is no bowel obstruction. There is no aortic aneurysm. There is heavily calcified atherosclerotic plaque within the aorta and iliac bifurcation. There is body wall edema. There is bone demineralization. There are degenerative changes throughout the spine. There is a chronic compression fracture with vertebroplasty changes at T12. There is a chronic compression fracture at T11. There is no acute osseous finding. IMPRESSION: 1. Stable bilateral renal pelvicaliectasis. No obstructing lesion is seen. There is urinary bladder wall thickening which may be due to underdistention or cystitis. Correlate with urinalysis. 2. Multiple hepatic cysts. 3. Hepatomegaly. 4. Small left greater than right pleural effusions and partial bilateral lower lobe consolidation. 5. Colonic diverticulosis evidence of partial bowel resection. There is no evidence of obstruction. Electronically signed by: Kianna Hand MD (05/16/2020 2:52 PM) [id number] Exam: Chest one view INDICATION: Fever TECHNIQUE: Frontal view of the chest Comparisons: 11/06/2020 FINDINGS: The cardiomediastinal silhouette and pulmonary vessels are within normal limits. Evaluation limited secondary to kyphotic positioning. No consolidation identified. IMPRESSION: No focal consolidation identified however evaluation is limited secondary to kyphotic positioning. Electronically signed by: Amaris Mishra MD (12/05/2020 10:35 PM) [facility] DICTATED and SIGNED BY: AMARIS MISHRA MD DATE: 12/05/20 [id number] 0 VTE Prophylaxis Ordered VTE Prophylaxis Devices: No VTE Pharmacological Prophylaxi: Yes Assessment/Plan Assessment/Plan IMPRESSION: 1. Sepsis, etiology suspect PICC line 2. underweight 3. Intractable back pain. 4. History of ovarian cancer. 5. Short bowel syndrome, on total parenteral nutrition. 6. Transaminitis, improved. 7. Anemia. 8. severe Protein-calorie malnutrition POA //. past medical history of short- bowel syndrome and ON TPN. AT home 9. Acute metabolic encephalopathy 10. fever 11. Acute hypoxic resp failure 12. 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 plan ADMIT TELE 1. one time iv Zosyn., ZYVOX pending ID consult 2. blood cultures. 3. Follow up labs and cultures. 4. ID CONSULT 5. D/C PICC line IF source 6. crp,, procalcitonin 7. trend labs 8. consider ECHO 9. O2 SUPPORT 10. pt/ot/st Concern for infected PICC. Needs better long-term venous access? ESTIMATE LOS > 72 HRS 74 MIN pt exam, chart review, > 50% of time spent with exam, chart review, pt care coordination Discussed with RN. Justifications for Admission Other Justification Intractable back pain NIKOLAS BARLOW MD December 06, 2020 10:06
[2020-12-06] MEDS ORDERED: PIPERACILLIN/TAZOBACTAM 3.375 GM in IV NORMAL SALINE 50ML 50 ML IV ONE (10:15)
[2020-12-06] MEDS ORDERED: ACETAMINOPHEN 325 MG TABLET. PO SCH (10:30)
[2020-12-06] MEDS ORDERED: ACETAMINOPHEN 650 MG SUPP.RECT. PR PRN (10:30)
[2020-12-06] MEDS ORDERED: 0.9 % SODIUM CHLORIDE 10 ML DISP.SYRIN. IV PRN (10:30)
[2020-12-06] MEDS ORDERED: guaiFENesin ORAL 200 MG/10 ML LIQUID. PO PRN (10:30)
[2020-12-06] MEDS ORDERED: SODIUM PHOSPHATES 19/7GM 133 ML ENEMA. PR PRN (10:30)
[2020-12-06] MEDS ORDERED: DOCUSATE SODIUM 100 MG CAPSULE. PO PRN (10:30)
[2020-12-06] MEDS ORDERED: ENOXAPARIN 40 MG/0.4 ML SYRINGE. SQ SCH (10:30)
[2020-12-06] MEDS ORDERED: ALBUTEROL SULFATE 2.5 MG/3 ML NEBU. NEB PRN (10:30)
[2020-12-06] MEDS ORDERED: ONDANSETRON PF 4 MG/2 ML VIAL. IV PRN (10:30)
--- NOTE | 2020-12-06 11:45 | PDOC2 ---
GI CONSULT Date of Service: DATE: 12/06/20 TIME: 11:40 Reason For Consult: short bowel syndrome HPI: HPI: 85 y/o female who we have seen in the past. She is very emotional today. Chart indicates she was evaluated in the ER for fever and AMS. Difficult to discern is she has any new/different GI symptoms/concerns. H/o malabsorption and short gut syndrome w/ h/o SBR for ischemia/internal hernia @ [facility] in 04/2019 (w/ 100cm of SB remaining). H/o bloating, abdominal discomfort, and irregular bowel habits. H/o anemia - iron and B12 deficient. Last colonoscopy normal in 2011. Has declined EGD and interval colonoscopy, also Gattex. Per past encounter: Xifaxan, pancreatic enzymes, Colestipol were all ineffective or caused more constipation and bloating, but also took Colestipol for diarrhea when we saw in 05/2020. Has also used Miralax for constipation in the past. It's unclear what GI-type medications she currently takes. On home TPN, also eats some ("not much") by mouth. We saw in 05/2020 - had elevated LFTs at that time (not now). Gallstone s/sludge, hepatomegaly, hepatic cysts, and diverticulosis on past imaging. D/w nurse - had blood culture w/ PCP on Friday through [facility] - positive for staph (but awaiting more details). PMH: PMH: CVA, HTN, uterine cancer, BCC, anxiety, osteoporosis, nephrolithiasis back surgery, cataract removal (bilateral), vertebroplasty x 2, hysterectomy FH: Family History: CVA, Hypertension Social History: Smoke: No ALCOHOL: none Drugs: None ROS: GEN: +fever ENDO: +weight changes MSK: +weakness +back pain Vitals: Vitals: Vital Signs Date Time Temp Pulse Resp B/P (MAP) Pulse Ox O2 Delivery O2 Flow Rate FiO2 12/06/20 11:00 101.1 110 22 111/51 (71) 95 Nasal Cannula 2.0 101.1 Labs: Labs: Laboratory Tests Test 12/05/20 22:40 12/06/20 00:35 12/06/20 01:50 12/06/20 06:00 White Blood Count 15.3 x10^3/uL (4.0-11.0) Red Blood Count 3.01 x10^6/uL (3.50-5.40) Hemoglobin 7.9 g/dL (12.0-15.5) Hematocrit 24.7 % (36.0-47.0) Mean Corpuscular Volume 82 fL (79-100) Mean Corpuscular Hemoglobin 26 pg (25-35) Mean Corpuscular Hemoglobin Concent 32 g/dL (31-37) Red Cell Distribution Width 16.8 % (11.5-14.5) Platelet Count 244 x10^3/uL (140-400) Neutrophils (%) (Auto) 86 % (31-73) Lymphocytes (%) (Auto) 5 % (24-48) Monocytes (%) (Auto) 8 % (0-9) Eosinophils (%) (Auto) 0 % (0-3) Basophils (%) (Auto) 1 % (0-3) Neutrophils # (Auto) 13.1 x10^3/uL (1.8-7.7) Lymphocytes # (Auto) 0.7 x10^3/uL (1.0-4.8) Monocytes # (Auto) 1.3 x10^3/uL (0.0-1.1) Eosinophils # (Auto) 0.0 x10^3/uL (0.0-0.7) Basophils # (Auto) 0.1 x10^3/uL (0.0-0.2) Segmented Neutrophils % 88 % (35-66) Band Neutrophils % 2 % (0-9) Lymphocytes % 4 % (24-48) Monocytes % 6 % (0-10) Toxic Granulation Slight Platelet Estimate Adequate (ADEQUATE) Sodium Level 136 mmol/L (136-145) Potassium Level 3.9 mmol/L (3.5-5.1) Chloride Level 102 mmol/L (98-107) Carbon Dioxide Level 28 mmol/L (21-32) Anion Gap 6 (6-14) Blood Urea Nitrogen 12 mg/dL (7-20) Creatinine 0.6 mg/dL (0.6-1.0) Estimated GFR (Cockcroft-Gault) 95.5 BUN/Creatinine Ratio 20 (6-20) Glucose Level 98 mg/dL (70-99) Calcium Level 8.7 mg/dL (8.5-10.1) Total Bilirubin 0.4 mg/dL (0.2-1.0) Aspartate Amino Transf (AST/SGOT) 14 U/L (15-37) Alanine Aminotransferase (ALT/SGPT) 8 U/L (14-59) Alkaline Phosphatase 93 U/L (46-116) Total Protein 6.7 g/dL (6.4-8.2) Albumin 2.7 g/dL (3.4-5.0) Albumin/Globulin Ratio 0.7 (1.0-1.7) SARS-CoV-2 RNA (LENORA) Negative (Negative) Urine Collection Type Unknown Urine Color Yellow Urine Clarity Clear Urine pH 5.5 (<5.0-8.0) Urine Specific [place] 1.010 (1.000-1.030) Urine Protein Negative mg/dL (NEG-TRACE) Urine Glucose (UA) Negative mg/dL (NEG) Urine Ketones (Stick) Negative mg/dL (NEG) Urine Blood Negative (NEG) Urine Nitrite Negative (NEG) Urine Bilirubin Negative (NEG) Urine Urobilinogen Dipstick 0.2 mg/dL (0.2 mg/dL) Urine Leukocyte Esterase Negative (NEG) Urine RBC 0 /HPF (0-2) Urine WBC 5-10 /HPF (0-4) Urine Squamous Epithelial Cells Occ /LPF Urine Amorphous Sediment Present /HPF Urine Bacteria Few /HPF (0-FEW) Urine Mucus Slight /LPF Troponin I Quantitative < 0.017 ng/mL (0.000-0.055) < 0.017 ng/mL (0.000-0.055) Allergies: Coded Allergies: No Known Drug Allergies (Unverified , 12/29/19) Medications: Current Medications Medications (Trade) Dose Ordered Sig/Yeimi Route PRN Reason Start Time Stop Time Status Last Admin Dose Admin Sodium Chloride 1,000 ml @ 1,000 mls/hr 1X ONCE IV 12/05/20 23:30 12/06/20 00:29 DC 12/05/20 23:00 Vancomycin HCl (Vanco Per Pharmacy) 1 each PRN DAILY PRN MC SEE COMMENTS 12/06/20 06:00 12/06/20 06:36 Vancomycin HCl 750 mg/Sodium Chloride 250 ml @ 250 mls/hr 1X ONCE IV 12/06/20 06:00 12/06/20 06:59 DC 12/06/20 06:21 Linezolid/Dextrose 300 ml @ 300 mls/hr 1X ONCE IV 12/06/20 09:45 12/06/20 10:44 DC 12/06/20 09:56 Imaging: Imaging: CXR 12/05 IMPRESSION: No focal consolidation identified however evaluation is limited secondary to kyphotic positioning. PE: GEN: thin HEENT: Atraumatic, PERRL LUNGS: diminished anteriorly HEART: tachycardic ABD: quiet BS, some distention, non-tender EXTREMITY: No edema SKIN: No rashes, no jaundice NEURO/PSYCH: crying, intermittently confused (asks me to check go check the mailbox at one point) A/P: A/P: Fever, AMS Leukocytosis, staph bacteremia (on outpt labs), ?UTI Chronic anemia - Hgb lower than baseline, no obvious bleeding Short gut syndrome on TPN w/ chronic/intermittent bloating/constipation/diarrhea, weight loss CRC screen - last in 2010 Diverticulosis Cholelithiasis Hepatomegaly, hepatic cysts COVID negative -- ?bacteremia 2/2 PICC? Observe from GI standpoint - usually on home TPN. Significant time spent today - she talked about dying and not wanting to come to the hospital - defer goals of care discussion to Dr. Flower. NENO FAY December 06, 2020 11:45
[2020-12-06] MEDS: IV NORMAL SALINE 1000ML BAG 1,000 ML IV SCH (12:04)
[2020-12-06] MEDS: ASPIRIN CHEWABLE 81 MG TABLET. PO SCH (12:04)
[2020-12-06] MEDS: fentaNYL 12MCG/HR PATCH 1 PATCH PATCH.TD72 TD SCH (12:04)
[2020-12-06] MEDS: LORazepam 0.5 MG TABLET PO SCH ×2 (12:04→22:56)
--- NOTE | 2020-12-06 12:30 | NUR ---
SW following. Discussed with RN, pt from home alone, daughter helps at home, 2L, regular diet. Pt on home TPN. RN advised pt may want to discuss hospice. ID following. SW will continue to follow.
[2020-12-06] MEDS: ACETAMINOPHEN 325 MG TABLET. PO PRN (13:19)
[2020-12-06] MEDS: DAPTOMYCIN IV SCH (13:24)
[2020-12-06] MEDS: NORMAL SALINE IV SCH (13:24)
[2020-12-06] MEDS: PANTOPRAZOLE 40 MG TABLET.DR. PO SCH (15:06)
[2020-12-06] MEDS: PIPERACILLIN/TAZOBACTAM 2.25 GM in IV NORMAL SALINE 50ML 50 ML IV SCH ×2 (18:27→23:26)
--- NOTE | 2020-12-06 21:57 | CONS ---
DATE OF CONSULTATION: 12/06/2020 REFERRING PHYSICIAN: Dr. Flower. REASON FOR CONSULTATION: Bacteremia, antibiotic management. MEDITECH is down History Limited , obtained from medical staff, Nursing records, and pt HISTORY OF PRESENT ILLNESS: An 85-year-old female with short gut syndrome, history of ovarian cancer, compression fracture, history of CVA, hypertension, on TPN through right upper extremity PICC line, presented to the ER with complaints of fever. She had been to her primary care physician who did blood cultures on 12/04 which were reported positive for staph. She was asked to come to the hospital for further evaluation and treatment. She received a dose of Zosyn. White count was elevated at 15.3, hemoglobin of 7.9. Chest x-ray was negative. The patient has received 2 doses of COVID-19. ID consultation has been requested for antibiotic management. PAST MEDICAL HISTORY: Ovarian CA, short gut syndrome, history of cerebrovascular accident, anemia, ischemic colitis, and hernia repair. ALLERGIES: No known drug allergies. SOCIAL HISTORY: Denies smoking or discharge or illicit drug. Lives at home. CURRENT MEDICATIONS: Reviewed. SOCIAL HISTORY: Denies smoking or illicit drug use. PHYSICAL EXAMINATION: VITAL SIGNS: Noted. GENERAL: Alert, oriented x 3 female, thin, in no acute distress. HEENT: Normocephalic, atraumatic. Anicteric. Oral mucosa moist. NECK: Supple. LUNGS: Decreased breath sounds at the bases, otherwise clear. HEART: S1, S2. No murmurs. ABDOMEN: Mildly distended, mild diffuse tenderness. No rebound or guarding. Bowel sounds present. EXTREMITIES: No edema, no cyanosis. DERMATOLOGIC: Warm, dry, no generalized rash. NEUROLOGIC: Alert, awake, generalized weakness. PSYCHIATRIC: Calm, cooperative, appears slightly anxious. LABORATORY DATA: Not available as [employer] is down. Cultures not available as [employer] is down. Chest x-ray has been reported negative. Blood culture at outside hospital on 12/04/2020 at [facility] gram-positive cocci suggestive of staph, further ID and LUBNA is pending at this time per fax report. IMPRESSION: 1. Fever. 2. Sepsis from gram-positive bacteremia pOA , details not available at t his time, faxed bc results 3. Gram-positive bacteremia,stap per prelim report , PICC line in place 4. Short gut syndrome,On TPN. 5. h/o Ischemic colitis RECOMMENDATIONS: 1. Continue Zosyn. 2. DC Vanc 3. Start empiric daptomycin, may need renal dosing. 4. Follow up blood cultures from outside hospital for final id of staph 5. Repeat blood cultures here. 6. PICC line may need removal. 7. Continue supportive care. Discussed with nursing staff. Thank you for allowing me to participate in this patient's care. If you have any questions, do not hesitate to contact me. ISRRAEL DR: Milana TID: [id number] MTDD
[2020-12-06] MEDS: amLODIPine BESYLATE 10 MG TABLET PO SCH (22:55)
[2020-12-06] MEDS: LACTOBACILLUS RHAMNOSUS GG 1 CAPSULE. PO SCH (22:56)
[2020-12-06] MEDS: COLESTIPOL HCL 1 GM TABLET PO SCH (22:57)
[2020-12-06] MEDS: ENOXAPARIN 30 MG/0.3 ML SYRINGE. SQ SCH ×2 (23:07→23:12)
[2020-12-07] MEDS: IV NORMAL SALINE 1000ML BAG 1,000 ML IV SCH ×2 (00:48→08:24)
[2020-12-07 03:00] VITALS: BP 107/56
[2020-12-07 05:19] LABS: BASO % 0 % (0-3); EOS % 0 % (0-3); HEMATOCRIT 24.3 % (36.0-47.0); HEMOGLOBIN 7.6 g/dL (12.0-15.5); LYMPH # 0.6 x10^3/uL (1.0-4.8); LYMPH % 4 % (24-48); MEAN CORPUSCULAR HEMOGLOBIN 26 pg (25-35); MEAN CORPUSCULAR HGB CONC 31 g/dL (31-37); MEAN CORPUSCULAR VOLUME 83 fL (79-100); MONO # 1.1 x10^3/uL (0.0-1.1); MONO % 7 % (0-9); NEUT % 88 % (31-73); PLATELET COUNT 246 x10^3/uL (140-400); RED BLOOD COUNT 2.95 x10^6/uL (3.50-5.40); RED CELL DISTRIBUTION WIDTH 17.1 % (11.5-14.5); WHITE BLOOD COUNT 14.8 x10^3/uL (4.0-11.0)
[2020-12-07 05:41] LABS: CALCIUM 8.1 mg/dL (8.5-10.1); CREATININE 0.5 mg/dL (0.6-1.0); GFR 117.8; POTASSIUM 3.3 mmol/L (3.5-5.1)
[2020-12-07] MEDS: PIPERACILLIN/TAZOBACTAM 2.25 GM in IV NORMAL SALINE 50ML 50 ML IV SCH ×4 (06:12→23:18)
[2020-12-07] MEDS: PANTOPRAZOLE 40 MG TABLET.DR. PO SCH (06:12)
[2020-12-07 07:00] VITALS: BP 104/59
[2020-12-07] MEDS ORDERED: VANCOMYCIN 500 MG in IV NORMAL SALINE 100ML 100 ML IV SCH (07:00)
[2020-12-07] MEDS: LACTOBACILLUS RHAMNOSUS GG 1 CAPSULE. PO SCH ×2 (08:20→20:53)
[2020-12-07] MEDS: LORazepam 0.5 MG TABLET PO SCH ×2 (08:20→20:54)
[2020-12-07] MEDS: ASPIRIN CHEWABLE 81 MG TABLET. PO SCH (08:20)
[2020-12-07] MEDS: ACETAMINOPHEN 325 MG TABLET. PO PRN ×2 (08:20→20:53)
--- NOTE | 2020-12-07 08:44 | PDOC ---
Infectious Disease Note Subjective: Subjective Patient feels a little better Blood cultures positive per nursing staff T Max 101 Vital Signs: Vital Signs Vital Signs Date Time Temp Pulse Resp B/P (MAP) Pulse Ox O2 Delivery O2 Flow Rate FiO2 12/07/20 07:00 98.8 103 16 104/59 (74) 90 Nasal Cannula 3.0 98.8 Physical Exam: PHYSICAL EXAM GENERAL: Alert, oriented x 3 female, thin, in no acute distress. HEENT: Normocephalic, atraumatic. Anicteric. Oral mucosa moist. NECK: Supple. LUNGS: Decreased breath sounds at the bases, otherwise clear. HEART: S1, S2. No murmurs. ABDOMEN: Mildly distended, mild diffuse tenderness. No rebound or guarding. Bowel sounds present. EXTREMITIES: No edema, no cyanosis. DERMATOLOGIC: Warm, dry, no generalized rash. NEUROLOGIC: Alert, awake, generalized weakness. PSYCHIATRIC: Calm, cooperative, appears slightly anxious. Medications: Inpatient Meds: Medications reviewed. Labs: Lab Laboratory Tests Test 12/06/20 12:30 12/07/20 04:30 Troponin I Quantitative < 0.017 ng/mL (0.000-0.055) C-Reactive Protein, Quantitative 252.2 mg/L (0-3.3) Procalcitonin 0.61 ng/mL (0.00-0.10) White Blood Count 14.8 x10^3/uL (4.0-11.0) Red Blood Count 2.95 x10^6/uL (3.50-5.40) Hemoglobin 7.6 g/dL (12.0-15.5) Hematocrit 24.3 % (36.0-47.0) Mean Corpuscular Volume 83 fL (79-100) Mean Corpuscular Hemoglobin 26 pg (25-35) Mean Corpuscular Hemoglobin Concent 31 g/dL (31-37) Red Cell Distribution Width 17.1 % (11.5-14.5) Platelet Count 246 x10^3/uL (140-400) Neutrophils (%) (Auto) 88 % (31-73) Lymphocytes (%) (Auto) 4 % (24-48) Monocytes (%) (Auto) 7 % (0-9) Eosinophils (%) (Auto) 0 % (0-3) Basophils (%) (Auto) 0 % (0-3) Neutrophils # (Auto) 13.0 x10^3/uL (1.8-7.7) Lymphocytes # (Auto) 0.6 x10^3/uL (1.0-4.8) Monocytes # (Auto) 1.1 x10^3/uL (0.0-1.1) Eosinophils # (Auto) 0.0 x10^3/uL (0.0-0.7) Basophils # (Auto) 0.0 x10^3/uL (0.0-0.2) Sodium Level 137 mmol/L (136-145) Potassium Level 3.3 mmol/L (3.5-5.1) Chloride Level 100 mmol/L (98-107) Carbon Dioxide Level 29 mmol/L (21-32) Anion Gap 8 (6-14) Blood Urea Nitrogen 9 mg/dL (7-20) Creatinine 0.5 mg/dL (0.6-1.0) Estimated GFR (Cockcroft-Gault) 117.8 Glucose Level 85 mg/dL (70-99) Calcium Level 8.1 mg/dL (8.5-10.1) Creatine Kinase 31 U/L (26-192) Objective: Assessment: 1. Fever. 2. Sepsis from gram-positive bacteremia pOA , details not available at t his time, faxed bc results 3. Gram-positive bacteremia,staph per prelim report , PICC line in place 4. Short gut syndrome,On TPN. 5. h/o Ischemic colitis Plan: Plan of Care 1. Continue Zosyn. 2. Cont daptomycin, may need renal dosing. 3. BC negative here so far 4. Follow up blood cultures from outside hospital for final id of staph, still pending from [facility] 5. DC PICC line; send cath tip cults, Avoid placing picc line for atleast 48-72 hours from last negative blood culture 6 Continue supportive care. Discussed with nursing staff. KEIKO MORALES MD December 07, 2020 08:44
--- NOTE | 2020-12-07 10:40 | PDOC ---
Date of Service: DATE: 12/07/20 TIME: 10:35 Subjective: Subjective: Tried to eat a bite of breakfast. Hasn't stooled. Feels the same. Asks how she got this infection. Wanted to discuss the details of surgery done at . Says the surgeon should have let her . Objective: Objective: D/w nurse - ?Hospice discussion? - unclear re: plans for PICC. 1 stool charted. Vital Signs: Vital Signs Date Time Temp Pulse Resp B/P (MAP) Pulse Ox O2 Delivery O2 Flow Rate FiO2 12/07/20 08:00 Nasal Cannula 2.0 12/07/20 07:00 98.8 103 16 104/59 (74) 90 98.8 Labs: Laboratory Tests Test 12/06/20 12:30 12/07/20 04:30 Troponin I Quantitative < 0.017 ng/mL C-Reactive Protein, Quantitative 252.2 mg/L Procalcitonin 0.61 ng/mL White Blood Count 14.8 x10^3/uL Red Blood Count 2.95 x10^6/uL Hemoglobin 7.6 g/dL Hematocrit 24.3 % Mean Corpuscular Volume 83 fL Mean Corpuscular Hemoglobin 26 pg Mean Corpuscular Hemoglobin Concent 31 g/dL Red Cell Distribution Width 17.1 % Platelet Count 246 x10^3/uL Neutrophils (%) (Auto) 88 % Lymphocytes (%) (Auto) 4 % Monocytes (%) (Auto) 7 % Eosinophils (%) (Auto) 0 % Basophils (%) (Auto) 0 % Neutrophils # (Auto) 13.0 x10^3/uL Lymphocytes # (Auto) 0.6 x10^3/uL Monocytes # (Auto) 1.1 x10^3/uL Eosinophils # (Auto) 0.0 x10^3/uL Basophils # (Auto) 0.0 x10^3/uL Sodium Level 137 mmol/L Potassium Level 3.3 mmol/L Chloride Level 100 mmol/L Carbon Dioxide Level 29 mmol/L Anion Gap 8 Blood Urea Nitrogen 9 mg/dL Creatinine 0.5 mg/dL Estimated GFR (Cockcroft-Gault) 117.8 Glucose Level 85 mg/dL Calcium Level 8.1 mg/dL Creatine Kinase 31 U/L BLOOD CULTURE Final GRAM POSITIVE COCCI IN PAIRS AND SMALL CLUSTERS SEEN IN 2 OF 4 BOTTLES, 2 SETS COLLECTED. ONE COMPLETE SET POSITIVE. CALLED TO Tayler/ETELVINA MURRIETA AT 0845 12/07/20 BY LAURI. CULTURES SENT TO [facility] FOR FURTHER WORKUP. PE: GEN: chronically ill, thin LUNGS: diminished anteriorly HEART: mildly tachycardic ABD: some distention NEURO/PSYCH: awake and alert, forgetful, depressed A/P: GPC bacteremia, AMS Chronic anemia Short gut syndrome w/ PICC on home TPN (has not been restarted) -- Resume TPN as able. Supportive care per GI. Justicifation of Admission Dx: Justifications for Admission: Justification of Admission Dx: Yes CHF: Sev. Electrolyte Abnormal NENO FAY December 07, 2020 10:40
[2020-12-07 11:00] VITALS: BP 102/58
[2020-12-07] MEDS: AMINO AC 3%/ELECTROLYTE/GLYCER 1,000 ML IV SCH ×2 (11:44→23:17)
--- NOTE | 2020-12-07 13:11 | PDOC2 ---
JOSE FRY ENVIRONMENTAL PROFESSIONAL 12/07/20 1311: CARDIAC CONSULT DATE OF CONSULT Date of Consult DATE: 12/07/20 TIME: 13:05 REASON FOR CONSULT Reason for Consult: sepsis, ? endocarditis REFERRING PHYSICIAN Referring Physician: Dr. Flower SOURCE Source: Chart review, Patient HISTORY OF PRESENT ILLNESS HISTORY OF PRESENT ILLNESS This is an 85 yo female who presented secondary to altered mental status and fevers. Has a history of malabsorption and short gut syndrome and is maintained on TPN. A couple of weeks ago, patient accidentally pulled out PICC line and had another replace. Reports low-grade fever developed 3-4 days following. Lab work and blood cultures were obtained by PCP. Over the last 3 days, she developed fever over 102 and has had periods of confusion. PAST MEDICAL HISTORY Cardiovascular: HTN CENTRAL NERVOUS SYSTEM: CVA GI: GI bleed, Other (malabsorption and short gut syndrome and is maintained on TPN) Heme/Onc: Anemia NOS, Cancer (uterine, ovarian ) Psych: Anxiety Musculoskeletal: Osteoarthritis PAST SURGICAL HISTORY Past Surgical History: Tonsillectomy, Hysterectomy, Colectomy, Other (back surgery ) FAMILY HISTORY Family History: Cancer, Hypertension, Stroke SOCIAL HISTORY Smoke: No ALCOHOL: none Drugs: None Lives: with Family CURRENT MEDICATIONS CURRENT MEDICATIONS Current Medications Medications (Trade) Dose Ordered Sig/Yeimi Route PRN Reason Start Time Stop Time Status Last Admin Dose Admin Colestipol HCl (Colestid) 2 gm QHS PO 12/06/20 21:00 12/06/20 22:57 Enoxaparin Sodium (Lovenox 30mg Syringe) 30 mg Q24H SQ 12/06/20 21:00 12/06/20 23:12 Daptomycin 210 mg/ Sodium Chloride 50 ml @ 100 mls/hr Q24H IV 12/06/20 14:00 12/06/20 13:24 Pantoprazole Sodium (Protonix) 40 mg DAILYAC PO 12/06/20 14:00 12/07/20 06:12 Lactobacillus Rhamnosus (Culturelle) 1 cap BID PO 12/06/20 21:00 12/07/20 08:20 Piperacillin Sod/ Tazobactam Sod 2.25 gm/Sodium Chloride 50 ml @ 100 mls/hr Q6HRS IV 12/06/20 18:00 12/07/20 11:41 Amino Acids/ Glycerin/ Electrolytes 1,000 ml @ 80 mls/hr [id number] IV 12/07/20 11:15 12/07/20 11:44 ALLERGIES ALLERGIES: Coded Allergies: No Known Drug Allergies (Unverified , 12/29/19) ROS Review of System 14 point ROS conducted with pertinent positives noted above in hPI PHYSICAL EXAM General: Alert, Cooperative, No acute distress HEENT: Atraumatic Lungs: Clear to auscultation Heart: Regular rate Abdomen: Soft, No tenderness Extremities: No edema Skin: No significant lesion Neuro: Normal speech, Sensation intact Psych/Mental Status: Other (forgetful, flat affect ) MUSCULOSKELETAL: Osteoarthritic changes both hands VITALS/I&O VITALS/I&O: Vital Signs Date Time Temp Pulse Resp B/P (MAP) Pulse Ox O2 Delivery O2 Flow Rate FiO2 12/07/20 11:00 97.9 92 18 102/58 (73) 91 Room Air 97.9 12/07/20 08:00 2.0 I & O 12/06/20 12/06/20 12/07/20 15:00 23:00 07:00 Intake Total 200 ml 100 ml Output Total 250 ml Balance -250 ml 200 ml 100 ml LABS Lab: Laboratory Tests Test 12/07/20 04:30 White Blood Count 14.8 x10^3/uL (4.0-11.0) H Red Blood Count 2.95 x10^6/uL (3.50-5.40) L Hemoglobin 7.6 g/dL (12.0-15.5) L Hematocrit 24.3 % (36.0-47.0) L Mean Corpuscular Volume 83 fL (79-100) Mean Corpuscular Hemoglobin 26 pg (25-35) Mean Corpuscular Hemoglobin Concent 31 g/dL (31-37) Red Cell Distribution Width 17.1 % (11.5-14.5) H Platelet Count 246 x10^3/uL (140-400) Neutrophils (%) (Auto) 88 % (31-73) H Lymphocytes (%) (Auto) 4 % (24-48) L Monocytes (%) (Auto) 7 % (0-9) Eosinophils (%) (Auto) 0 % (0-3) Basophils (%) (Auto) 0 % (0-3) Neutrophils # (Auto) 13.0 x10^3/uL (1.8-7.7) H Lymphocytes # (Auto) 0.6 x10^3/uL (1.0-4.8) L Monocytes # (Auto) 1.1 x10^3/uL (0.0-1.1) Eosinophils # (Auto) 0.0 x10^3/uL (0.0-0.7) Basophils # (Auto) 0.0 x10^3/uL (0.0-0.2) Sodium Level 137 mmol/L (136-145) Potassium Level 3.3 mmol/L (3.5-5.1) L Chloride Level 100 mmol/L (98-107) Carbon Dioxide Level 29 mmol/L (21-32) Anion Gap 8 (6-14) Blood Urea Nitrogen 9 mg/dL (7-20) Creatinine 0.5 mg/dL (0.6-1.0) L Estimated GFR (Cockcroft-Gault) 117.8 Glucose Level 85 mg/dL (70-99) Calcium Level 8.1 mg/dL (8.5-10.1) L Creatine Kinase 31 U/L (26-192) Laboratory Tests 12/07/20 04:30 Laboratory Tests 12/07/20 04:30 ASSESSMENT/PLAN ASSESSMENT/PLAN 1. Leukocytosis, fevers, sepsis 2. Bacteremia; BC + for GPC 3. Encephalopathy 4. Malabsorption, short gut syndrome maintained on TPN 5. Hypertension; controlled Recommendations Echo as ordered Follow cultures; await final ID Ongoing antibiotic therapy as per ID Consider DEREK if high suspicion for endocarditis Supportive care SHONNA CHIANG MD 12/07/20 1802: CARDIAC CONSULT ASSESSMENT/PLAN ASSESSMENT/PLAN The patient was seen and interviewed as well as examined at the bedside. The chart was reviewed. The case was discussed. Agree with the plan of care. JOSE FRY APRN December 07, 2020 13:11 SHONNA CHIANG MD December 07, 2020 18:02
[2020-12-07] MEDS: NORMAL SALINE IV SCH (13:21)
[2020-12-07] MEDS: DAPTOMYCIN IV SCH (13:21)
--- NOTE | 2020-12-07 14:50 | NUR ---
SS following up with discharge planning. SS reviewed pt chart and discussed with pt RN. Pt is from home alone and is currently on room air. Pt had previous services with [facility], ; fax [phone], and home TPN with [facility], ; fax [phone]. Pt on IV Zosyn and IV Daptomycin. PT/OT recommended shelter unit. SS spoke with pt's son via phone and pt's son reported that pt is well cared for at home and receives daily visits and assistance from family. Pt's son not agreeable to shelter unit at this time and wants to see if pt can improve enough to return to home with home healthcare services. SS will continue to follow for discharge planning.
[2020-12-07 15:00] VITALS: BP 110/60
--- NOTE | 2020-12-07 16:21 | PDOC ---
[employer] PROGRESS NOTE Date of Service DOS: DATE: 12/07/20 TIME: 16:13 Chief Complaint Chief Complaint IMPRESSION: 1. Sepsis, etiology suspect PICC line 2. underweight 3. Intractable back pain. 4. History of ovarian cancer. 5. Short bowel syndrome, on total parenteral nutrition. 6. Transaminitis, improved. 7. Anemia. 8. severe Protein-calorie malnutrition POA //. past medical history of short- bowel syndrome and ON TPN. AT home 9. Acute metabolic encephalopathy 10. fever 11. Acute hypoxic resp failure 12. 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 plan ADMIT TELE 1. one time iv Zosyn., ZYVOX pending ID consult 2. blood cultures. 3. Follow up labs and cultures. 4. ID CONSULT 5. D/C PICC line IF source 6. crp,, procalcitonin 7. trend labs 8. consider ECHO 9. O2 SUPPORT 10. pt/ot/st History of Present Illness History of Present Illness Patient is an 84-year-old female with past medical history CVA, HTN, ovarian cancer, short bowel syndrome, compression fractures, who presented to the ER with complaint of fever, she had a positive blood culture reported to be possible staph this week Daughter states 3 to 4 days after PICC line replacement patient started to run a fever of 99. Patient was evaluated by home health and her primary care physician who ordered basic labs and blood cultures. Over the last 3 days patient has had a fever greater than 102. Daughter states during this time patient has had episodes of confusion WBC IN ER 15.3 past medical history of short-bowel syndrome and ON TPN. plan echo, id and cardiology consults admit temp now 101 F , WILL repeat blood cultures again Follow up labs and cultures ID CONSULT D/C PICC line IF source crp,, procalcitonin trend labs ECHO O2 SUPPORT 12/07/2020 Patient seen and evaluated today. She is afebrile today. Denies any nausea or vomiting, and states that she feels better today. Had lengthy discussion with patient about her medical history and her goals of care. I then spoke with her daughter (DPOA) about her current condition, or plan of care, and CODE STATUS. Patient's DPOA states that she would want her mother to be DNR, and patient agrees. She had positive blood culture showing gram-positive cocci in pairs in 2-4 bottles. Continue with IV antibiotics, repeat blood cultures pending. Per ID, avoid PICC line replacement until repeat blood cultures negative. Advance Care Planning: Total time spent [id number] with patient 18 minutes in discussion with goals of care, comfort care, end-of-life care, pain management, code status; as a result of this conversation patient is now DNR. Patient names her daughter and DPOA as surrogate decision-maker. Vitals/I&O Vitals/I&O: Vital Signs Date Time Temp Pulse Resp B/P (MAP) Pulse Ox O2 Delivery O2 Flow Rate FiO2 12/07/20 15:00 98.1 99 16 110/60 (77) 93 Nasal Cannula 3.0 98.1 I & O 12/06/20 12/06/20 12/07/20 15:00 23:00 07:00 Intake Total 200 ml 100 ml Output Total 250 ml Balance -250 ml 200 ml 100 ml Physical Exam Physical Exam: GENERAL: Alert, oriented x 3 female, thin, in no acute distress. HEENT: Normocephalic, atraumatic. Anicteric. Oral mucosa moist. NECK: Supple. LUNGS: Decreased breath sounds at the bases, otherwise clear. HEART: S1, S2. No murmurs. ABDOMEN: Mildly distended, mild diffuse tenderness. No rebound or guarding. Bowel sounds present. EXTREMITIES: No edema, no cyanosis. DERMATOLOGIC: Warm, dry, no generalized rash. NEUROLOGIC: Alert, awake, generalized weakness. PSYCHIATRIC: Calm, cooperative, appears slightly anxious. General: Alert, Cooperative, mild distress Lungs: Crackles Abdomen: Normal bowel sounds, Soft, No masses, Other (THIN) Extremities: No cyanosis Labs Labs: Laboratory Tests Test 12/07/20 04:30 White Blood Count 14.8 x10^3/uL (4.0-11.0) Red Blood Count 2.95 x10^6/uL (3.50-5.40) Hemoglobin 7.6 g/dL (12.0-15.5) Hematocrit 24.3 % (36.0-47.0) Mean Corpuscular Volume 83 fL (79-100) Mean Corpuscular Hemoglobin 26 pg (25-35) Mean Corpuscular Hemoglobin Concent 31 g/dL (31-37) Red Cell Distribution Width 17.1 % (11.5-14.5) Platelet Count 246 x10^3/uL (140-400) Neutrophils (%) (Auto) 88 % (31-73) Lymphocytes (%) (Auto) 4 % (24-48) Monocytes (%) (Auto) 7 % (0-9) Eosinophils (%) (Auto) 0 % (0-3) Basophils (%) (Auto) 0 % (0-3) Neutrophils # (Auto) 13.0 x10^3/uL (1.8-7.7) Lymphocytes # (Auto) 0.6 x10^3/uL (1.0-4.8) Monocytes # (Auto) 1.1 x10^3/uL (0.0-1.1) Eosinophils # (Auto) 0.0 x10^3/uL (0.0-0.7) Basophils # (Auto) 0.0 x10^3/uL (0.0-0.2) Sodium Level 137 mmol/L (136-145) Potassium Level 3.3 mmol/L (3.5-5.1) Chloride Level 100 mmol/L (98-107) Carbon Dioxide Level 29 mmol/L (21-32) Anion Gap 8 (6-14) Blood Urea Nitrogen 9 mg/dL (7-20) Creatinine 0.5 mg/dL (0.6-1.0) Estimated GFR (Cockcroft-Gault) 117.8 Glucose Level 85 mg/dL (70-99) Calcium Level 8.1 mg/dL (8.5-10.1) Creatine Kinase 31 U/L (26-192) Assessment and Plan Assessmemt and Plan Problems Medical Problems: (1) Confusion Status: Acute (2) Fever Status: Acute Comment Review of Relevant I have reviewed the following items yuni (where applicable) has been applied. Medications: Current Medications Medications (Trade) Dose Ordered Sig/Yeimi Route PRN Reason Start Time Stop Time Status Last Admin Dose Admin Colestipol HCl (Colestid) 2 gm QHS PO 12/06/20 21:00 12/06/20 22:57 Enoxaparin Sodium (Lovenox 30mg Syringe) 30 mg Q24H SQ 12/06/20 21:00 12/06/20 23:12 Lactobacillus Rhamnosus (Culturelle) 1 cap BID PO 12/06/20 21:00 12/07/20 08:20 Piperacillin Sod/ Tazobactam Sod 2.25 gm/Sodium Chloride 50 ml @ 100 mls/hr Q6HRS IV 12/06/20 18:00 12/07/20 11:41 Amino Acids/ Glycerin/ Electrolytes 1,000 ml @ 80 mls/hr [id number] IV 12/07/20 11:15 12/07/20 11:44 Justifications for Admission Other Justification Intractable back pain JOELLE TRACEY MD December 07, 2020 16:21
--- NOTE | 2020-12-07 18:21 | CARD ---
MR#: [id number] Date of Study: 12/07/2020 Ordering Physician: NIKOLAS BARLOW, Referring Physician: NIKOLAS BARLOW, Tech: Rita Humphries [facility] APPROVED REPORT EXAM: Two-dimensional and M-mode echocardiogram with Doppler and color Doppler. Other Information Quality : AverageHR: 100bpm Rhythm : Tachycardia INDICATION 2D DIMENSIONS Left Atrium(2D)4.0 (1.6-4.0cm)IVSd0.7 (0.7-1.1cm) Aortic Root(2D)3.0 (2.0-3.7cm)LVDd2.8 (3.9-5.9cm) LVOT Diameter1.8 (1.8-2.4cm)PWd0.9 (0.7-1.1cm) LVDs1.5 (2.5-4.0cm)FS (%) 45.3 % SV22.6 mlLVEF(%)78.4 (>50%) Aortic Valve AoV Peak Kevin.211.2cm/sAoV VTI39.3cm AO Peak GR.17.8mmHgLVOT Peak Kevin.115.3cm/s AO Mean GR.9mmHgAVA (VMAX)1.37cm2 AI P 1/2 [id number] Mitral Valve MV E Fbauhnfv32.5cm/sMV DECEL [id number] MV A Wfdiaqgs179.1cm/sE/A Ratio0.7 Tricuspid Valve TR P. Aemwdwvt331ts/sTR Peak Gr.51mmHg LEFT VENTRICLE The left ventricle is normal size. There is normal left ventricular wall thickness. The left ventricu lar systolic function is normal and the ejection fraction is within normal range. Estimated ejection fraction 55-60%. There is normal LV segmental wall motion. Tissue Doppler imaging reveals moderate le ft ventricular diastolic dysfunction. RIGHT VENTRICLE The right ventricle is normal size. There is normal right ventricular wall thickness. The right ventr icular systolic function is normal. ATRIA The left atrium is moderately dilated. The right atrium is moderately dilated. The interatrial septum is intact with no evidence for an atrial septal defect or patent foramen ovale as noted on 2-D or Do ppler imaging. AORTIC VALVE The aortic valve is calcified but opens well. Doppler and Color Flow revealed mild to moderate aortic regurgitation. There is no significant aortic valvular stenosis. MITRAL VALVE The mitral valve is normal in structure and function. There is no evidence of mitral valve prolapse. There is no mitral valve stenosis. Doppler and Color-flow revealed mild mitral regurgitation. TRICUSPID VALVE The tricuspid valve is normal in structure and function. Doppler and Color Flow revealed moderate tri cuspid regurgitation. Esitmated PAP 60 mmHg. There is a mobile vegetation on the lena/lateral leafl et of the tricuspid valve measuring approximately 1.1 x 1.3 cm. There is no tricuspid valve stenosis. PULMONIC VALVE Doppler and Color Flow revealed trace pulmonic valvular regurgitation. There is no pulmonic valvular stenosis. GREAT VESSELS The aortic root is normal in size. The ascending aorta is normal in size. The IVC is normal in size a nd collapses >50% with inspiration. PERICARDIAL EFFUSION There is no evidence of significant pericardial effusion. Critical Notification Critical Value: No <Conclusion> The left ventricular systolic function is normal and the ejection fraction is within normal range. E stimated ejection fraction 55-60%. There is normal LV segmental wall motion. Doppler and Color Flow revealed mild to moderate aortic regurgitation. Doppler and Color Flow revealed moderate tricuspid regurgitation. Esitmated PAP 60 mmHg. No clear evidence of vegegation on the aortic/mitral valves. There is a mobile vegetation on the lena/lateral leaflet of the tricuspid valve measuring ap proximately 1.1 x 1.3 cm. Signed by : Abdirahman Christie, Electronically Approved : 12/07/2020 18:21:02
[2020-12-07 19:25] VITALS: BP 151/63
[2020-12-07] MEDS: amLODIPine BESYLATE 10 MG TABLET PO SCH (20:54)
[2020-12-07] MEDS: ENOXAPARIN 30 MG/0.3 ML SYRINGE. SQ SCH (20:55)
[2020-12-07] MEDS: COLESTIPOL HCL 1 GM TABLET PO SCH ×2 (21:00→21:54)
[2020-12-07 23:02] VITALS: BP 113/43
[2020-12-08 03:01] VITALS: BP 122/42
[2020-12-08] MEDS: PIPERACILLIN/TAZOBACTAM 2.25 GM in IV NORMAL SALINE 50ML 50 ML IV SCH ×3 (05:56→16:42)
[2020-12-08] MEDS: PANTOPRAZOLE 40 MG TABLET.DR. PO SCH (06:00)
[2020-12-08 07:00] VITALS: BP 122/65
[2020-12-08] MEDS: LORazepam 0.5 MG TABLET PO SCH (07:52)
[2020-12-08] MEDS: LACTOBACILLUS RHAMNOSUS GG 1 CAPSULE. PO SCH ×2 (07:52→20:13)
[2020-12-08] MEDS: ASPIRIN CHEWABLE 81 MG TABLET. PO SCH (07:52)
[2020-12-08] MEDS: ACETAMINOPHEN 325 MG TABLET. PO PRN ×2 (07:52→20:13)
--- NOTE | 2020-12-08 08:39 | PDOC ---
Infectious Disease Note Subjective: Subjective Patient feels a little better Still somewhat confused P.o. intake is poor Denies any pain Discussed with nursing staff Vital Signs: Vital Signs Vital Signs Date Time Temp Pulse Resp B/P (MAP) Pulse Ox O2 Delivery O2 Flow Rate FiO2 12/08/20 07:00 98.7 113 22 122/65 (84) 92 Nasal Cannula 1.0 98.7 Physical Exam: PHYSICAL EXAM GENERAL: Alert, oriented x 3 female, thin, in no acute distress. HEENT: Normocephalic, atraumatic. Anicteric. Oral mucosa moist. NECK: Supple. LUNGS: Decreased breath sounds at the bases, otherwise clear. HEART: S1, S2. Murmur present irregular ABDOMEN: Mildly distended, mild diffuse tenderness w hich pt says is chronic . No rebound or guarding. Bowel sounds present. EXTREMITIES: No edema, no cyanosis. DERMATOLOGIC: Warm, dry, no generalized rash. NEUROLOGIC: Alert, awake, generalized weakness. somewhat confused PSYCHIATRIC: Calm, cooperative, appears slightly anxious. PICC line out Medications: Inpatient Meds: Medications reviewed. Objective: Assessment: 1/2 bottles Bacteremia Staph at [facility] PICC line in place for more than 6 months s/p cath removal 12/08 2 D Echo Moderate tricuspid regurgitation. mobile vegetation on the lena/lateral leaflet of the tricuspid valve measuring approximately 1.1 x 1.3 cm. Fever. Pattern improved Leucocytosis Gram-positive bacteremia here 3/4 bottles Short gut syndrome,On TPN. h/o Ischemic colitis Debility UC staph epidermidis 80K History of ovarian cancer. Transaminitis, improved. Anemia. Severe Protein-calorie malnutrition Acute metabolic encephalopathy,improving , some what confused, baseline unknown Kyphosis Plan: Plan of Care 1. Continue Zosyn. Was on IV Vanc 2. Cont daptomycin, may need renal dosing. 3. Follow up blood cultures from outside hospital for final id of staph, still pending as of today..... 4. F/U repeat BC 12/08 5. DC'D PICC line; cath tip cults neg so far, Avoid placing picc line for atleast 48-72 hours from last negative blood culture 6 May need CTS evaluation, cardiology following 7. Continue supportive care. Discussed with nursing staff. KEIKO MORALES MD December 08, 2020 08:39
[2020-12-08 10:16] VITALS: BP 123/59
--- NOTE | 2020-12-08 10:44 | PDOC ---
Date of Service: DATE: 12/08/20 TIME: 10:36 Objective: Objective: D/w nurse - says she feels terrible today. Reviewed notes - plans to go home on DC w/ family, doesn't want SNU, now DNR. On PPN, not eating much but drank yogurt drink. PICC line replacement w/ blood cx neg. Vital Signs: Vital Signs Date Time Temp Pulse Resp B/P (MAP) Pulse Ox O2 Delivery O2 Flow Rate FiO2 12/08/20 10:16 98.1 90 18 123/59 (80) 87 Nasal Cannula 1.0 98.1 Labs: ORDERED: AEROBIC CULT GS COMMENTS: CATH TIP GRAM STAIN Final Final AEROBIC CULTURE PENDING URINE CULTURE Final Final 80,000 CFU/ML [STAPHYLOCOCCUS EPIDERMIDIS] on 12/07/20 at 1150. NO FURTHER WORKUP. BLOOD CULTURE Final GRAM POSITIVE COCCI IN CLUSTERS GROWTH IN 3 OF 4 BOTTLES OF 2 SETS CALLED TO KEI MURRIETA 12/07/20 AT 1550 BY LT CULTURE SENT TO [facility] FOR FURTHER WORKUP Imaging: Echo 12/07 <Conclusion> The left ventricular systolic function is normal and the ejection fraction is within normal range. Estimated ejection fraction 55-60%. There is normal LV segmental wall motion. Doppler and Color Flow revealed mild to moderate aortic regurgitation. Doppler and Color Flow revealed moderate tricuspid regurgitation. Esitmated PAP 60 mmHg. No clear evidence of vegegation on the aortic/mitral valves. There is a mobile vegetation on the lena/lateral leaflet of the tricuspid valve measuring approximately 1.1 x 1.3 cm. 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 Pt with banana flavor supplement brought from home. Tried to obtained food preferences, unable to do so. PPN initiated 12/07 @ 80 ml/hr. PICC line was d/c'd and recs from ID are to avoid placing picc line for atleast 48-72 hours from last negative blood culture. Medications and labs reviewed. skin intact. REC continue with regular diet, encourage po intake. PPN day 2, rec continue for short term non oral nutrition. PPN provides 1920 ml, 470 kcal, 55.68 g protein which meets ~37% est kcal needs, 139% est protein needs. REC TPN when able to place PICC. Will monitor PE: GEN: NAD - on commode when I stopped by, staff helping A/P: GPC bacteremia, tricuspid valve vegetation Chronic anemia Short gut syndrome w/ PICC on home TPN (has not been restarted) -- Difficult situation. Continue support per GI. Justicifation of Admission Dx: Justifications for Admission: Justification of Admission Dx: Yes CHF: Sev. Electrolyte Abnormal NENO FAY December 08, 2020 10:44
[2020-12-08] MEDS: AMINO AC 3%/ELECTROLYTE/GLYCER 1,000 ML IV SCH (11:12)
[2020-12-08] MEDS: DAPTOMYCIN IV SCH (13:39)
[2020-12-08] MEDS: NORMAL SALINE IV SCH (13:39)
[2020-12-08 14:11] VITALS: BP 113/45
--- NOTE | 2020-12-08 14:40 | NUR ---
SS following up with discharge planning. SS reviewed pt chart and discussed with pt RN. Pt is currently requiring oxygen at two liters nasal canula. COVID19 negative. Pt on IV Zosyn, IV Daptomycin, and PPN. PT/OT recommended care home unit. Pt has [facility] and [facility] home TPN at home. Pt's son declining care home unit at this time stating that if at all possible they would like pt to return to home with services and home healthcare. SS will continue to follow for discharge planning.
--- NOTE | 2020-12-08 15:53 | PDOC ---
Provider Note Date of Service: DATE: 12/08/20 TIME: 15:51 Provider Note -No acute events overnight. Patient remains afebrile. Reviewed echocardiogram with the ID service. Antibiotics per infectious disease team. Consult has been placed to CT surgery for their input but no clear indication for urgent surgery. Patient is extremely frail and would likely not survive cardiac surgery given her multiple other issues including malnutrition. Would favor continued aggressive antibiotic therapy and await CT surgery input. She currently does not appear to be in heart failure. Monitor for any signs of worsening heart failure given her moderate to severe insufficiency of the tricuspid valve Cardiology available over the weekend as needed. We will follow up with her again on Friday. Justifications for Admission Other Justification Intractable back pain SHONNA CHIANG MD December 08, 2020 15:53
--- NOTE | 2020-12-08 17:50 | PDOC ---
[employer] PROGRESS NOTE Date of Service DOS: DATE: 12/08/20 TIME: 17:48 Chief Complaint Chief Complaint IMPRESSION: 1. Sepsis, etiology suspect PICC line 2. underweight 3. Intractable back pain. 4. History of ovarian cancer. 5. Short bowel syndrome, on total parenteral nutrition. 6. Transaminitis, improved. 7. Anemia. 8. severe Protein-calorie malnutrition POA //. past medical history of short- bowel syndrome and ON TPN. AT home 9. Acute metabolic encephalopathy 10. fever 11. Acute hypoxic resp failure 12. 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 plan ADMIT TELE 1. one time iv Zosyn., ZYVOX pending ID consult 2. blood cultures. 3. Follow up labs and cultures. 4. ID CONSULT 5. D/C PICC line IF source 6. crp,, procalcitonin 7. trend labs 8. consider ECHO 9. O2 SUPPORT 10. pt/ot/st History of Present Illness History of Present Illness Patient is an 84-year-old female with past medical history CVA, HTN, ovarian cancer, short bowel syndrome, compression fractures, who presented to the ER with complaint of fever, she had a positive blood culture reported to be possible staph this week Daughter states 3 to 4 days after PICC line replacement patient started to run a fever of 99. Patient was evaluated by home health and her primary care physician who ordered basic labs and blood cultures. Over the last 3 days patient has had a fever greater than 102. Daughter states during this time patient has had episodes of confusion WBC IN ER 15.3 past medical history of short-bowel syndrome and ON TPN. plan echo, id and cardiology consults admit temp now 101 F , WILL repeat blood cultures again Follow up labs and cultures ID CONSULT D/C PICC line IF source crp,, procalcitonin trend labs ECHO O2 SUPPORT 12/07/2020 Patient seen and evaluated today. She is afebrile today. Denies any nausea or vomiting, and states that she feels better today. Had lengthy discussion with patient about her medical history and her goals of care. I then spoke with her daughter (DPOA) about her current condition, or plan of care, and CODE STATUS. Patient's DPOA states that she would want her mother to be DNR, and patient agrees. She had positive blood culture showing gram-positive cocci in pairs in 2-4 bottles. Continue with IV antibiotics, repeat blood cultures pending. Per ID, avoid PICC line replacement until repeat blood cultures negative. Advance Care Planning: Total time spent [id number] with patient 18 minutes in discussion with goals of care, comfort care, end-of-life care, pain management, code status; as a result of this conversation patient is now DNR. Patient names her daughter and DPOA as surrogate decision-maker. 12/08/2020 Afebrile, no acute events overnight. Patient seen with daughter at bedside. She reports some anxiety that her daughter attributes to the inappropriate timing of her Ativan. Discussed with RN, will change his orders. Continue Zosyn and daptomycin, per ID. We will continue to follow blood cultures. Once blood cultures have cleared, will place PICC line 4872 hours after last negative blood culture. Vitals/I&O Vitals/I&O: Vital Signs Date Time Temp Pulse Resp B/P (MAP) Pulse Ox O2 Delivery O2 Flow Rate FiO2 12/08/20 14:11 97.4 93 18 113/45 (67) 92 Nasal Cannula 2.0 97.4 I & O 12/07/20 12/07/20 12/08/20 15:00 23:00 07:00 Intake Total 400 ml 1290 ml Balance 400 ml 1290 ml Physical Exam Physical Exam: GENERAL: Alert, oriented x 3 female, thin, in no acute distress. HEENT: Normocephalic, atraumatic. Anicteric. Oral mucosa moist. NECK: Supple. LUNGS: Decreased breath sounds at the bases, otherwise clear. HEART: S1, S2. Murmur present irregular ABDOMEN: Mildly distended, mild diffuse tenderness w hich pt says is chronic . No rebound or guarding. Bowel sounds present. EXTREMITIES: No edema, no cyanosis. DERMATOLOGIC: Warm, dry, no generalized rash. NEUROLOGIC: Alert, awake, generalized weakness. somewhat confused PSYCHIATRIC: Calm, cooperative, appears slightly anxious. PICC line out General: Alert, Cooperative, No acute distress Heart: Other (Tachycardic) Lungs: Crackles Abdomen: Soft, No tenderness Extremities: No edema Skin: No significant lesion Assessment and Plan Assessmemt and Plan Problems Medical Problems: (1) Confusion Status: Acute (2) Fever Status: Acute Comment Review of Relevant I have reviewed the following items yuni (where applicable) has been applied. Justifications for Admission Other Justification Intractable back pain JOELLE TRACEY MD December 08, 2020 17:50
[2020-12-08 19:20] VITALS: BP 133/74
[2020-12-08] MEDS: amLODIPine BESYLATE 10 MG TABLET PO SCH (20:13)
[2020-12-08] MEDS: ENOXAPARIN 30 MG/0.3 ML SYRINGE. SQ SCH (20:14)
[2020-12-08] MEDS: COLESTIPOL HCL 1 GM TABLET PO SCH (21:42)
[2020-12-08 23:17] VITALS: BP 127/62
[2020-12-09] MEDS: PIPERACILLIN/TAZOBACTAM 2.25 GM in IV NORMAL SALINE 50ML 50 ML IV SCH ×4 (00:13→17:47)
[2020-12-09] MEDS: AMINO AC 3%/ELECTROLYTE/GLYCER 1,000 ML IV SCH ×2 (00:15→16:43)
[2020-12-09 03:00] VITALS: BP 115/56
[2020-12-09 07:00] VITALS: BP 120/72
[2020-12-09 07:22] LABS: CALCIUM 8.5 mg/dL (8.5-10.1); CREATININE 0.5 mg/dL (0.6-1.0); GFR 117.8; POTASSIUM 3.2 mmol/L (3.5-5.1)
--- NOTE | 2020-12-09 07:56 | PDOC ---
Infectious Disease Note Subjective: Subjective Patient states she does not feel better Has abdominal discomfort P.o. intake is poor No fevers Discussed with nursing staff Vital Signs: Vital Signs Vital Signs Date Time Temp Pulse Resp B/P (MAP) Pulse Ox O2 Delivery O2 Flow Rate FiO2 12/09/20 03:00 98.9 95 20 115/56 (75) 91 Nasal Cannula 2.0 98.9 Physical Exam: PHYSICAL EXAM GENERAL: Alert, oriented x 3 female, thin, in no acute distress. HEENT: Normocephalic, atraumatic. Anicteric. Oral mucosa moist. NECK: Supple. LUNGS: Decreased breath sounds at the bases, otherwise clear. HEART: S1, S2. Murmur present irregular ABDOMEN: Mildly distended, mild diffuse tenderness w hich pt says is chronic . No rebound or guarding. Bowel sounds present. EXTREMITIES: No edema, no cyanosis. DERMATOLOGIC: Warm, dry, no generalized rash. NEUROLOGIC: Alert, awake, generalized weakness. somewhat confused PSYCHIATRIC: Calm, cooperative, appears slightly anxious. PICC line out Medications: Inpatient Meds: Medications reviewed. Labs: Lab Laboratory Tests Test 12/09/20 06:25 Sodium Level 134 mmol/L (136-145) Potassium Level 3.2 mmol/L (3.5-5.1) Chloride Level 97 mmol/L (98-107) Carbon Dioxide Level 32 mmol/L (21-32) Anion Gap 5 (6-14) Blood Urea Nitrogen 9 mg/dL (7-20) Creatinine 0.5 mg/dL (0.6-1.0) Estimated GFR (Cockcroft-Gault) 117.8 Glucose Level 94 mg/dL (70-99) Calcium Level 8.5 mg/dL (8.5-10.1) Objective: Assessment: High-grade Gram-positive bacteremia Staph at [facility] PICC line in place for more than 6 months, ID still pending Tricuspid valve endocarditis 2 D Echo Moderate tricuspid regurgitation. mobile vegetation on the lena/lateral leaflet of the tricuspid valve measuring approximately 1.1 x 1.3 cm. s/p cath removal 12/08 Persistent Gram-positive bacteremia here is not on admission on 12/05, 12/06, 12/08 Prelim staph epidermidis Fever. Pattern improved Leucocytosis Short gut syndrome,On TPN. h/o Ischemic colitis Debility UC staph epidermidis 80K History of ovarian cancer. Transaminitis, improved. Anemia. Severe Protein-calorie malnutrition Acute metabolic encephalopathy,improving , some what confused, baseline unknown Kyphosis Plan: Plan of Care F/U CBC from today 1. Continue Zosyn. Was on IV Vanc 2. Cont daptomycin, may need renal dosing. CPK 31 3. Follow up blood cultures from outside hospital for final id of staph, still pending as of today..... 4. F/U positive repeat BC from 12/05, 12/06, 12/08. Repeat blood cultures 12/10 5. PICC line discontinued; cath tip cults neg so far, Avoid placing picc line for atleast 48-72 hours from last negative blood culture 6 May need CTS evaluation, discussed with Dr. Christie Will defer to primary team for final goals of treatment 7. CT chest ,abdomen and pelvis without 8. continue supportive care. 9.Prognosis poor Discussed with nursing staff. KEIKO MORALES MD December 09, 2020 07:56
[2020-12-09 07:57] LABS: BASO % 0 % (0-3); EOS % 0 % (0-3); HEMATOCRIT 27.8 % (36.0-47.0); LYMPH # 0.7 x10^3/uL (1.0-4.8); LYMPH % 6 % (24-48); MEAN CORPUSCULAR HEMOGLOBIN 27 pg (25-35); MEAN CORPUSCULAR HGB CONC 32 g/dL (31-37); MEAN CORPUSCULAR VOLUME 82 fL (79-100); MONO # 1.1 x10^3/uL (0.0-1.1); MONO % 10 % (0-9); NEUT # 9.3 x10^3/uL (1.8-7.7); NEUT % 83 % (31-73); PLATELET COUNT 315 x10^3/uL (140-400); RED BLOOD COUNT 3.37 x10^6/uL (3.50-5.40); RED CELL DISTRIBUTION WIDTH 16.8 % (11.5-14.5); WHITE BLOOD COUNT 11.2 x10^3/uL (4.0-11.0)
[2020-12-09] MEDS ORDERED: LORazepam 0.5 MG TABLET PO SCH (08:00)
[2020-12-09] MEDS: LORazepam 0.5 MG TABLET PO SCH ×2 (09:16→16:43)
[2020-12-09] MEDS: PANTOPRAZOLE 40 MG TABLET.DR. PO SCH (09:16)
[2020-12-09] MEDS: ASPIRIN CHEWABLE 81 MG TABLET. PO SCH (09:16)
[2020-12-09] MEDS: LACTOBACILLUS RHAMNOSUS GG 1 CAPSULE. PO SCH ×2 (09:16→20:44)
[2020-12-09 11:00] VITALS: BP 121/66
[2020-12-09] MEDS: fentaNYL 12MCG/HR PATCH 1 PATCH PATCH.TD72 TD SCH (12:10)
--- NOTE | 2020-12-09 12:29 | RAD ---
CT STUDY OF THE CHEST AND ABDOMEN AND PELVIS WITHOUT CONTRAST CLINICAL INDICATIONS: Bacteremia. Abdominal pain. TECHNIQUE: Noncontrast helical CT scanning of the chest and abdomen and pelvis was performed. Without contrast, the sensitivity to detect organ pathology and GI tract pathology is decreased. PQRS compliance Statement One or more of the following individualized dose reduction techniques were utilized for this study: 1. Automated exposure control 2. Adjustment of the mA and/or kV according to patient size 3. Use of iterative reconstruction technique COMPARISON: Chest CT dated May 18, 2020. Abdomen and pelvis CT dated May 16, 2020. CHEST CT: No bulky thoracic lymphadenopathy is evident. No focal aneurysmal dilatation of the thoraci c aorta is seen. Calcified atheromatous disease of the coronary arteries is seen. The heart size is a t the upper limits normal. No pericardial effusion is identified. A small left-sided pleural effusion and moderate size right-sided pleural effusion are seen. There are consolidative lower lobe lung inf iltrates with air bronchograms bilaterally. There are consolidative infiltrates within the lateral an d anterior aspects of the right upper lobe. The consolidative infiltrate with air bronchograms was pr esent within the left lower lobe previously and is an unchanged chronic finding. No pneumothorax is s een. The proximal bronchial tree is patent. Generalized osteopenia is seen. Multiple compression frac tures of the thoracic spine are seen many of which have been treated with methylmethacrylate. There i s a new severe compression fracture of T10. No posterior protrusion of bony elements into the anterio r aspect of the spinal canal is seen at this level. Healing bilateral rib cage fractures are evident with sclerosis. However no acute-appearing rib cage fracture is evident. IMPRESSION: Chronic consolidative left lower lobe lung infiltrate with air bronchograms and associate d small left-sided pleural effusion. This has not changed significantly since May 18, 2020. New finding of a large consolidative lung infiltrate with air bronchograms within the right lower lob e. There is a moderate-sized right-sided pleural effusion. New consolidative infiltrates within the right upper lobe. Calcified atheromatous disease of the coronary arteries. Bilateral healing rib cage fractures. Multiple compression fractures many of which have been treated with methylmethacrylate. There is a new severe compression fracture of T10 however. ABDOMEN AND PELVIS CT: Multiple hepatic cysts are seen. The spleen is not enlarged. The pancreas is d ifficult to visualize in this study given lack of contrast. The gallbladder is distended and there is a gallstone measuring 14 mm. No gallbladder wall thickening is evident. The extra hepatic bile duct is difficult to visualize. There are multiple bubbles of air within the upper retroperitoneum which m ost likely represents intraluminal gas within the duodenum. Delineation of the stomach and and duoden um and small bowel is poor on this study given the lack of contrast. No free intraperitoneal air is s een however. Subcutaneous air is seen within the left anterior abdominal wall which may be related to injections. Mild colonic dilatation is seen. No small bowel dilatation is evident. Evaluation of the bowel and evaluation for soft tissue mass or abscess is difficult within the abdomen and pelvis give n lack of contrast. No free fluid is evident. There may be weakness within the internal ring of the i nguinal canal on both sides with bowel loops seen extending into the opening on both sides. No bowel wall thickening or obstructive bowel pattern is seen related to this. The appendix cannot be visualiz ed in this study. Urinary bladder is distended. Urinary bladder wall appears smooth. Calcified athero matous disease of the abdominal aorta and iliac arteries is seen. No focal aneurysmal dilatation is s een. Evaluation for lymphadenopathy is difficult. No obvious bulky lymphadenopathy is seen on this st udy. The ureters are difficult to visualize distal to the kidneys. Mild chronic pelvocaliectasis is s een. No urinary tract stone is seen. No perinephric fluid collection is seen. Generalized osteopenia is seen. Old compression fractures of L1 and L2 and L3 and L4 are seen. No new compression fracture i s seen. IMPRESSION: Difficult study to interpret given the lack of contrast. No small bowel obstruction is ev ident. There is mild dilatation of the colon which may be due to a mild colonic ileus. No free air or free fluid is seen. Cholelithiasis. Distended gallbladder. No gallbladder wall thickening. Hepatic cysts. Chronic compression fractures of the lumbar spine. Small amount of air within the left anterior abdominal wall which may be related to injections. Electronically signed by: Jadiel Garcia MD (12/09/2020 12:26 PM) [id number]
--- NOTE | 2020-12-09 13:33 | PDOC ---
[facility] PROGRESS NOTE Date of Service DOS: DATE: 12/09/20 TIME: 13:31 Chief Complaint Chief Complaint IMPRESSION: 1. Sepsis, etiology suspect PICC line 2. underweight 3. Intractable back pain. 4. History of ovarian cancer. 5. Short bowel syndrome, on total parenteral nutrition. 6. Transaminitis, improved. 7. Anemia. 8. severe Protein-calorie malnutrition POA //. past medical history of short- bowel syndrome and ON TPN. AT home 9. Acute metabolic encephalopathy 10. fever 11. Acute hypoxic resp failure 12. 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 plan ADMIT TELE 1. one time iv Zosyn., ZYVOX pending ID consult 2. blood cultures. 3. Follow up labs and cultures. 4. ID CONSULT 5. D/C PICC line IF source 6. crp,, procalcitonin 7. trend labs 8. consider ECHO 9. O2 SUPPORT 10. pt/ot/st History of Present Illness History of Present Illness Patient is an 84-year-old female with past medical history CVA, HTN, ovarian cancer, short bowel syndrome, compression fractures, who presented to the ER with complaint of fever, she had a positive blood culture reported to be possible staph this week Daughter states 3 to 4 days after PICC line replacement patient started to run a fever of 99. Patient was evaluated by home health and her primary care physician who ordered basic labs and blood cultures. Over the last 3 days patient has had a fever greater than 102. Daughter states during this time patient has had episodes of confusion WBC IN ER 15.3 past medical history of short-bowel syndrome and ON TPN. plan echo, id and cardiology consults admit temp now 101 F , WILL repeat blood cultures again Follow up labs and cultures ID CONSULT D/C PICC line IF source crp,, procalcitonin trend labs ECHO O2 SUPPORT 12/07/2020 Patient seen and evaluated today. She is afebrile today. Denies any nausea or vomiting, and states that she feels better today. Had lengthy discussion with patient about her medical history and her goals of care. I then spoke with her daughter (DPOA) about her current condition, or plan of care, and CODE STATUS. Patient's DPOA states that she would want her mother to be DNR, and patient agrees. She had positive blood culture showing gram-positive cocci in pairs in 2-4 bottles. Continue with IV antibiotics, repeat blood cultures pending. Per ID, avoid PICC line replacement until repeat blood cultures negative. Advance Care Planning: Total time spent [id number] with patient 18 minutes in discussion with goals of care, comfort care, end-of-life care, pain management, code status; as a result of this conversation patient is now DNR. Patient names her daughter and DPOA as surrogate decision-maker. 12/08/2020 Afebrile, no acute events overnight. Patient seen with daughter at bedside. She reports some anxiety that her daughter attributes to the inappropriate timing of her Ativan. Discussed with RN, will change his orders. Continue Zosyn and daptomycin, per ID. We will continue to follow blood cultures. Once blood cultures have cleared, will place PICC line 4872 hours after last negative blood culture. 12/09/2020 Patient afebrile, tachycardic, currently breathing on 2 L nasal cannula. Transthoracic echocardiogram performed on 12/07 showed a mobile vegetation on the lena/lateral leaflet of the tricuspid valve measuring approximately 1.1 x 1.3 cm. Pulmonary blood cultures growing staph epidermidis. Continue vancomycin and daptomycin, per ID. WBC improving. Potassium 3.2; will attempt to replace IV potassium. Vitals/I&O Vitals/I&O: Vital Signs Date Time Temp Pulse Resp B/P (MAP) Pulse Ox O2 Delivery O2 Flow Rate FiO2 12/09/20 12:10 Nasal Cannula 2.0 12/09/20 11:00 98.3 95 22 121/66 (84) 94 98.3 I & O 12/08/20 12/08/20 12/09/20 15:00 23:00 07:00 Intake Total 200 ml 1490 ml Balance 200 ml 1490 ml Physical Exam Physical Exam: GENERAL: Alert, oriented x 3 female, thin, in no acute distress. HEENT: Normocephalic, atraumatic. Anicteric. Oral mucosa moist. NECK: Supple. LUNGS: Decreased breath sounds at the bases, otherwise clear. HEART: S1, S2. Murmur present irregular ABDOMEN: Mildly distended, mild diffuse tenderness w hich pt says is chronic . No rebound or guarding. Bowel sounds present. EXTREMITIES: No edema, no cyanosis. DERMATOLOGIC: Warm, dry, no generalized rash. NEUROLOGIC: Alert, awake, generalized weakness. somewhat confused PSYCHIATRIC: Calm, cooperative, appears slightly anxious. PICC line out General: Alert, Cooperative, No acute distress Heart: Other (Tachycardic) Lungs: Crackles Abdomen: Soft, No tenderness Extremities: No edema Skin: No significant lesion Labs Labs: Laboratory Tests Test 12/09/20 06:25 White Blood Count 11.2 x10^3/uL (4.0-11.0) Red Blood Count 3.37 x10^6/uL (3.50-5.40) Hemoglobin 9.0 g/dL (12.0-15.5) Hematocrit 27.8 % (36.0-47.0) Mean Corpuscular Volume 82 fL (79-100) Mean Corpuscular Hemoglobin 27 pg (25-35) Mean Corpuscular Hemoglobin Concent 32 g/dL (31-37) Red Cell Distribution Width 16.8 % (11.5-14.5) Platelet Count 315 x10^3/uL (140-400) Neutrophils (%) (Auto) 83 % (31-73) Lymphocytes (%) (Auto) 6 % (24-48) Monocytes (%) (Auto) 10 % (0-9) Eosinophils (%) (Auto) 0 % (0-3) Basophils (%) (Auto) 0 % (0-3) Neutrophils # (Auto) 9.3 x10^3/uL (1.8-7.7) Lymphocytes # (Auto) 0.7 x10^3/uL (1.0-4.8) Monocytes # (Auto) 1.1 x10^3/uL (0.0-1.1) Eosinophils # (Auto) 0.0 x10^3/uL (0.0-0.7) Basophils # (Auto) 0.0 x10^3/uL (0.0-0.2) Sodium Level 134 mmol/L (136-145) Potassium Level 3.2 mmol/L (3.5-5.1) Chloride Level 97 mmol/L (98-107) Carbon Dioxide Level 32 mmol/L (21-32) Anion Gap 5 (6-14) Blood Urea Nitrogen 9 mg/dL (7-20) Creatinine 0.5 mg/dL (0.6-1.0) Estimated GFR (Cockcroft-Gault) 117.8 Glucose Level 94 mg/dL (70-99) Calcium Level 8.5 mg/dL (8.5-10.1) Assessment and Plan Assessmemt and Plan Problems Medical Problems: (1) Confusion Status: Acute (2) Fever Status: Acute Comment Review of Relevant I have reviewed the following items yuni (where applicable) has been applied. Medications: Current Medications Medications (Trade) Dose Ordered Sig/Yeimi Route PRN Reason Start Time Stop Time Status Last Admin Dose Admin Lorazepam (Ativan) 0.5 mg BID@0800,1600 PO 12/09/20 08:00 12/09/20 09:16 Lorazepam (Ativan Inj) 0.5 mg PRN QHS PRN IVP ANXIETY / AGITATION 12/08/20 18:00 12/08/20 22:35 Justifications for Admission Other Justification Intractable back pain JOELLE TRACEY MD December 09, 2020 13:32
[2020-12-09] MEDS: NORMAL SALINE IV SCH (14:00)
[2020-12-09] MEDS: DAPTOMYCIN IV SCH (14:00)
[2020-12-09 15:00] VITALS: BP 124/55
[2020-12-09 19:00] VITALS: BP 126/68
[2020-12-09] MEDS: amLODIPine BESYLATE 10 MG TABLET PO SCH (20:44)
[2020-12-09] MEDS: COLESTIPOL HCL 1 GM TABLET PO SCH (20:44)
[2020-12-09] MEDS: ENOXAPARIN 30 MG/0.3 ML SYRINGE. SQ SCH (20:44)
[2020-12-09 23:00] VITALS: BP 124/44
[2020-12-10] MEDS: PIPERACILLIN/TAZOBACTAM 2.25 GM in IV NORMAL SALINE 50ML 50 ML IV SCH ×2 (00:10→06:07)
[2020-12-10] MEDS: AMINO AC 3%/ELECTROLYTE/GLYCER 1,000 ML IV SCH ×2 (01:45→14:49)
--- NOTE | 2020-12-10 08:29 | PDOC ---
Infectious Disease Note Subjective: Subjective Patient states she does not feel better Has abdominal discomfort and back pain P.o. intake is poor No fevers Discussed with nursing staff Vital Signs: Vital Signs Vital Signs Date Time Temp Pulse Resp B/P (MAP) Pulse Ox O2 Delivery O2 Flow Rate FiO2 12/09/20 23:00 98.1 108 22 124/44 (70) 90 Nasal Cannula 2.0 98.1 Physical Exam: PHYSICAL EXAM GENERAL: Alert, oriented x 3 female, thin, in no acute distress. HEENT: Normocephalic, atraumatic. Anicteric. Oral mucosa moist. NECK: Supple. LUNGS: Decreased breath sounds at the bases, otherwise clear. HEART: S1, S2. Murmur present irregular ABDOMEN: Mildly distended, mild diffuse tenderness w hich pt says is chronic . No rebound or guarding. Bowel sounds present. EXTREMITIES: No edema, no cyanosis. DERMATOLOGIC: Warm, dry, no generalized rash. NEUROLOGIC: Alert, awake, generalized weakness. somewhat confused PSYCHIATRIC: Calm, cooperative, appears slightly anxious. PICC line out Medications: Inpatient Meds: Medications reviewed. Labs: Micro MICRO noted CT C/A/P CHEST CT: No bulky thoracic lymphadenopathy is evident. No focal aneurysmal dilatation of the thoracic aorta is seen. Calcified atheromatous disease of the coronary arteries is seen. The heart size is at the upper limits normal. No pericardial effusion is identified. A small left-sided pleural effusion and moderate size right-sided pleural effusion are seen. There are consolidative lower lobe lung infiltrates with air bronchograms bilaterally. There are consolidative infiltrates within the lateral and anterior aspects of the right upper lobe. The consolidative infiltrate with air bronchograms was present within the left lower lobe previously and is an unchanged chronic finding. No pneumothorax is seen. The proximal bronchial tree is patent. Generalized osteopenia is seen. Multiple compression fractures of the thoracic spine are seen many of which have been treated with methylmethacrylate. There is a new severe compression fracture of T10. No posterior protrusion of bony elements into the anterior aspect of the spinal canal is seen at this level. Healing bilateral rib cage fractures are evident with sclerosis. However no acute- appearing rib cage fracture is evident. IMPRESSION: Chronic consolidative left lower lobe lung infiltrate with air bronchograms and associated small left-sided pleural effusion. This has not changed significantly since May 18, 2020. New finding of a large consolidative lung infiltrate with air bronchograms within the right lower lobe. There is a moderate-sized right-sided pleural effusion. New consolidative infiltrates within the right upper lobe. Calcified atheromatous disease of the coronary arteries. Bilateral healing rib cage fractures. Multiple compression fractures many of which have been treated with methylmethacrylate. There is a new severe compression fracture of T10 however. ABDOMEN AND PELVIS CT: Multiple hepatic cysts are seen. The spleen is not enlarged. The pancreas is difficult to visualize in this study given lack of contrast. The gallbladder is distended and there is a gallstone measuring 14 mm. No gallbladder wall thickening is evident. The extra hepatic bile duct is difficult to visualize. There are multiple bubbles of air within the upper retroperitoneum which most likely represents intraluminal gas within the duodenum. Delineation of the stomach and and duodenum and small bowel is poor on this study given the lack of contrast. No free intraperitoneal air is seen however. Subcutaneous air is seen within the left anterior abdominal wall which may be related to injections. Mild colonic dilatation is seen. No small bowel dilatation is evident. Evaluation of the bowel and evaluation for soft tissue mass or abscess is difficult within the abdomen and pelvis given lack of contrast. No free fluid is evident. There may be weakness within the internal ring of the inguinal canal on both sides with bowel loops seen extending into the opening on both sides. No bowel wall thickening or obstructive bowel pattern is seen related to this. The appendix cannot be visualized in this study. Urinary bladder is distended. Urinary bladder wall appears smooth. Calcified atheromatous disease of the abdominal aorta and iliac arteries is seen. No focal aneurysmal dilatation is seen. Evaluation for lymphadenopathy is difficult. No obvious bulky lymphadenopathy is seen on this study. The ureters are difficult to visualize distal to the kidneys. Mild chronic pelvocaliectasis is seen. No urinary tract stone is seen. No perinephric fluid collection is seen. Genera lized osteopenia is seen. Old compression fractures of L1 and L2 and L3 and L4 are seen. No new compression fracture is seen. IMPRESSION: Difficult study to interpret given the lack of contrast. No small bowel obstruction is evident. There is mild dilatation of the colon which may be due to a mild colonic ileus. No free air or free fluid is seen. Cholelithiasis. Distended gallbladder. No gallbladder wall thickening. Hepatic cysts. Chronic compression fractures of the lumbar spine. Small amount of air within the left anterior abdominal wall which may be related to injections. Objective: Assessment: High-grade Gram-positive bacteremia Staph at [facility] POA 12/[address] for more than 6 months, ID still pending Persistent Gram-positive bacteremia here present on admission on 12/05, 12/06, 12/08 Prelim staph epidermidis Tricuspid valve endocarditis 2 D Echo Moderate tricuspid regurgitation. mobile vegetation on the lena/lateral leaflet of the tricuspid valve measuring approximately 1.1 x 1.3 cm. s/p cath removal 12/08 Fever. Pattern improved Leucocytosis Short gut syndrome,On TPN. h/o Ischemic colitis Debility UC staph epidermidis 80K History of ovarian cancer. Transaminitis, improved. Anemia. Severe Protein-calorie malnutrition Acute metabolic encephalopathy,improving , some what confused, baseline unknown Kyphosis Plan: Plan of Care 1. Discontinue Zosyn 2. Cont daptomycin, may need renal dosing. CPK 31 3. Follow up blood cultures from outside hospital for final id of staph, still pending 4. F/U positive repeat BC from 12/05, 12/06, 12/08. F/U Repeat blood cultures 12/10,12/12 5. PICC line discontinued; cath tip cults neg so far, 6 May need CTS evaluation, discussed with Dr. Christie. Pt is a poor surgical candidate Will defer to primary team for final goals of treatment . 7. CT chest ,abdomen and pelvis without as above Obtain CT of thoracolumbar spine 8. Avoid placing picc line for atleast 48-72 hours from last negative blood culture 9.Prognosis very poor Discussed with nursing staff. KEIKO MORALES MD December 10, 2020 08:29
[2020-12-10] MEDS: PANTOPRAZOLE 40 MG TABLET.DR. PO SCH (08:58)
[2020-12-10] MEDS: LORazepam 0.5 MG TABLET PO SCH ×2 (08:58→16:30)
[2020-12-10] MEDS: LACTOBACILLUS RHAMNOSUS GG 1 CAPSULE. PO SCH ×2 (08:58→21:27)
[2020-12-10] MEDS: ASPIRIN CHEWABLE 81 MG TABLET. PO SCH (08:58)
[2020-12-10 11:00] VITALS: BP 121/64
--- NOTE | 2020-12-10 12:56 | PDOC ---
[employer] PROGRESS NOTE Date of Service DOS: DATE: 12/10/20 TIME: 12:55 Chief Complaint Chief Complaint 1. Sepsis, etiology suspect PICC line 2. underweight 3. Intractable back pain. 4. History of ovarian cancer. 5. Short bowel syndrome, on total parenteral nutrition. 6. Transaminitis, improved. 7. Anemia. 8. severe Protein-calorie malnutrition POA //. past medical history of short- bowel syndrome and ON TPN. AT home 9. Acute metabolic encephalopathy 10. fever 11. Acute hypoxic resp failure 12. 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 History of Present Illness History of Present Illness 12/10, 1. one time iv Zosyn., ZYVOX pending ID consult 2. blood cultures. 3. Follow up labs and cultures. 4. ID CONSULT 5. D/C PICC line IF source 6. crp,, procalcitonin 7. trend labs 8. consider ECHO 9. O2 SUPPORT 10. pt/ot/st Patient is an 84-year-old female with past medical history CVA, HTN, ovarian cancer, short bowel syndrome, compression fractures, who presented to the ER with complaint of fever, she had a positive blood culture reported to be possible staph this week Daughter states 3 to 4 days after PICC line replacement patient started to run a fever of 99. Patient was evaluated by home health and her primary care physician who ordered basic labs and blood cultures. Over the last 3 days patient has had a fever greater than 102. Daughter states during this time patient has had episodes of confusion WBC IN ER 15.3 past medical history of short-bowel syndrome and ON TPN. plan echo, id and cardiology consults admit temp now 101 F , WILL repeat blood cultures again Follow up labs and cultures ID CONSULT D/C PICC line IF source crp,, procalcitonin trend labs ECHO O2 SUPPORT 12/07/2020 Patient seen and evaluated today. She is afebrile today. Denies any nausea or vomiting, and states that she feels better today. Had lengthy discussion with patient about her medical history and her goals of care. I then spoke with her daughter (DPOA) about her current condition, or plan of care, and CODE STATUS. Patient's DPOA states that she would want her mother to be DNR, and patient a grees. She had positive blood culture showing gram-positive cocci in pairs in 2-4 bottles. Continue with IV antibiotics, repeat blood cultures pending. Per ID, avoid PICC line replacement until repeat blood cultures negative. Advance Care Planning: Total time spent [id number] with patient 18 minutes in discussion with goals of care, comfort care, end-of-life care, pain management, code status; as a result of this conversation patient is now DNR. Patient names her daughter and DPOA as surrogate decision-maker. 12/08/2020 Afebrile, no acute events overnight. Patient seen with daughter at bedside. She reports some anxiety that her daughter attributes to the inappropriate timing of her Ativan. Discussed with RN, will change his orders. Continue Zosyn and daptomycin, per ID. We will continue to follow blood cultures. Once blood cultures have cleared, will place PICC line 4872 hours after last negative blood culture. 12/09/2020 Patient afebrile, tachycardic, currently breathing on 2 L nasal cannula. Transthoracic echocardiogram performed on 12/07 showed a mobile vegetation on the lena/lateral leaflet of the tricuspid valve measuring approximately 1.1 x 1.3 cm. Pulmonary blood cultures growing staph epidermidis. Continue vancomycin and daptomycin, per ID. WBC improving. Potassium 3.2; will attempt to replace IV potassium. Vitals/I&O Vitals/I&O: Vital Signs Date Time Temp Pulse Resp B/P (MAP) Pulse Ox O2 Delivery O2 Flow Rate FiO2 12/10/20 11:00 98.3 101 18 121/64 (83) 91 Nasal Cannula 2.0 98.3 I & O 12/09/20 12/09/20 12/10/20 15:00 23:00 07:00 Intake Total 0 ml Balance 0 ml Physical Exam Physical Exam: GENERAL: Alert, oriented x 3 female, thin, in no acute distress. HEENT: Normocephalic, atraumatic. Anicteric. Oral mucosa moist. NECK: Supple. LUNGS: Decreased breath sounds at the bases, otherwise clear. HEART: S1, S2. Murmur present irregular ABDOMEN: Mildly distended, mild diffuse tenderness w hich pt says is chronic . No rebound or guarding. Bowel sounds present. EXTREMITIES: No edema, no cyanosis. DERMATOLOGIC: Warm, dry, no generalized rash. NEUROLOGIC: Alert, awake, generalized weakness. somewhat confused PSYCHIATRIC: Calm, cooperative, appears slightly anxious. PICC line out General: Alert, Cooperative, No acute distress Heart: Regular rate, Other (Tachycardic) Lungs: Crackles Abdomen: Soft, No tenderness Extremities: No cyanosis, No edema Skin: No rashes, No significant lesion Labs Labs: Laboratory Tests Test 12/10/20 11:52 Glucose (Fingerstick) 102 mg/dL (70-99) Assessment and Plan Assessmemt and Plan Problems Medical Problems: (1) Confusion Status: Acute (2) Fever Status: Acute Comment Review of Relevant I have reviewed the following items yuni (where applicable) has been applied. Justifications for Admission Other Justification Intractable back pain TYRESE OLIVER MD December 10, 2020 12:56
--- NOTE | 2020-12-10 13:06 | RAD ---
CT STUDY OF THE THORACIC SPINE WITHOUT CONTRAST CT STUDY OF THE LUMBAR SPINE WITHOUT CONTRAST Clinical indications: Back pain. Bacteremia. COMPARISON: December 09, 2020 CT study of the chest and abdomen and pelvis and CT study of the chest dated May 18, 2020. TECHNIQUE: Noncontrast helical CT scanning of the thoracic and lumbar spine was performed. Multiplana r 2-D reconstructions were generated. PQRS compliance Statement One or more of the following individualized dose reduction techniques were utilized for this study: 1. Automated exposure control 2. Adjustment of the mA and/or kV according to patient size 3. Use of iterative reconstruction technique CT STUDY OF THE THORACIC SPINE: Multiple compression fractures are present.. There is a mild compress ion fracture of T3 which is stable. There is a severe compression fracture of T4 which is stable. The re is a severe compression fracture of T5 and T6 and T7 and T8 and T9 which are stable and have been treated with methylmethacrylate. There is a moderate compression fracture of T12 which is stable and has been treated with methylmethacrylate. There is a severe compression fracture of T11 which was see n previously and measured 10 mm in vertical height previously and now measures 8 mm. Therefore there is a slight increase in this compression fracture. There is a new severe compression fracture of T10. No lytic process or discitis is seen. No abnormal posterior protrusion of bony elements into the ant erior aspect of the spinal canal is seen and there is no significant AP dimensional spinal canal sten osis of the thoracic spine. Levoscoliosis is apparent. There is exaggerated thoracic kyphosis as resu lt of the multiple compression fractures. See chest CT report from yesterday for additional chest CT findings. IMPRESSION: Multiple chronic compression fractures as discussed above. There is a new severe compress ion fracture of T10 and a mild increase in the vertical compression of the chronic T11 compression fr acture. CT STUDY OF THE LUMBAR SPINE: Generalized osteopenia is seen. No discitis or lytic process is seen. T here are biconcave compression deformities of L1 and L2 and L3 and L4 which are stable. There is a mo derate compression deformity of the inferior endplate of L5 and a mild compression deformity of the s uperior endplate of L5 which are stable. No new compression fracture is evident. Sacrum and coccyx ar e intact. No anterolisthesis is evident. The transverse processes are intact. No significant spinal c anal stenosis is seen. No significant focal disc herniation is evident. No spondylolysis is seen. Uri nary bladder is moderately distended. See abdomen and pelvis CT report from yesterday for additional abdomen and pelvis CT findings. IMPRESSION: Chronic biconcave compression deformities of L1 and L2 and L3 and L4 and chronic compress ion deformities of the superior and inferior endplates of L5 which are stable. No new compression fra cture is evident. No spinal canal stenosis. The urinary bladder is moderately distended measuring over 11 cm. Electronically signed by: Jadiel Garcia MD (12/10/2020 1:03 PM) [id number]
[2020-12-10] MEDS: NORMAL SALINE IV SCH (14:45)
[2020-12-10] MEDS: DAPTOMYCIN IV SCH (14:45)
[2020-12-10 15:00] VITALS: BP 118/66
--- NOTE | 2020-12-10 17:03 | CONS ---
DATE OF CONSULTATION: 12/10/2020 We were asked to see the patient by Dr. Christie. The patient is an 85-year-old admitted with endocarditis. The patient was admitted on 12/06/2020. HISTORY OF PRESENT ILLNESS:: The patient is an 85-year-old with a history of CVA, hypertension, ovarian cancer, short bowel syndrome and compression fractures, who presented to the Emergency Department with fever. There is a history of a positive blood culture reported as staph. Daughter stated that a PICC line was placed in 3-4 days later, the patient began to run a temperature of 99. Over the three days prior to admission, the patient had a fever greater than 102. During this time, the patient's daughter states the patient had episodes of confusion. PAST MEDICAL HISTORY: Significant for short bowel syndrome and the patient is on hyperalimentation at home. As mentioned, past history includes ovarian cancer, hypertension, stroke, acquired short bowel syndrome, ischemic colitis. The patient seemed to have been started on vancomycin prior to admission. ALLERGIES: None reported in the chart. REVIEW OF SYSTEMS: I have no reason to disagree with the review of systems as dictated in the chart. The patient is not able to give me reasonable answers to questions. PHYSICAL EXAMINATION GENERAL: The patient is lying in bed, still without distress, but not communicative. She appears to move all extremities and is arousable, but prefers to lie still. VITAL SIGNS: Temperature 98.3, pulse 100, blood pressure 118/66, respiratory rate 16. HEENT: No scleral icterus. I see no arcus. NECK: No mass. I hear no bruits. CHEST: Clear to auscultation anteriorly. HEART: Rhythm regular with systolic murmur, increased precordial motion. The patient is quite thin and frail. ABDOMEN: Scaphoid abdomen. No mass. EXTREMITIES: No clubbing, cyanosis or edema, 2+ distal pulses. NEUROLOGIC: Appears to have full motion but the patient does not respond to command easily. ASSESSMENT AND PLAN: The patient may have infective endocarditis related to the PICC line placement with the vegetation on the tricuspid valve. Surgery is typically related reserved for failure of medical management and this patient may be too frail to undergo surgery in any event. I agree with current medical management and will discuss case with Dr. Christie, but we have no plans for surgery for endocarditis in this lady at this point. Thank you for the consult. RENARD DR: Beatriz TID: [id number]
[2020-12-10 19:35] VITALS: BP 117/58
[2020-12-10] MEDS: ENOXAPARIN 30 MG/0.3 ML SYRINGE. SQ SCH (21:27)
[2020-12-10] MEDS: amLODIPine BESYLATE 10 MG TABLET PO SCH (21:27)
[2020-12-10] MEDS: COLESTIPOL HCL 1 GM TABLET PO SCH (21:27)
[2020-12-10 22:50] VITALS: BP 115/59
[2020-12-11] MEDS: AMINO AC 3%/ELECTROLYTE/GLYCER 1,000 ML IV SCH ×2 (02:45→14:24)
[2020-12-11 02:49] VITALS: BP 117/59
[2020-12-11 07:00] VITALS: BP 138/69
[2020-12-11] MEDS: PANTOPRAZOLE 40 MG TABLET.DR. PO SCH ×2 (07:30→09:30)
[2020-12-11] MEDS: LORazepam 0.5 MG TABLET PO SCH ×3 (08:00→16:45)
--- NOTE | 2020-12-11 08:36 | PDOC ---
Infectious Disease Note Subjective: Subjective Patient cont to moan when awakened from sleep Has abdominal discomfort and back pain P.o. intake is poor No fevers Discussed with nursing staff Vital Signs: Vital Signs Vital Signs Date Time Temp Pulse Resp B/P (MAP) Pulse Ox O2 Delivery O2 Flow Rate FiO2 12/11/20 07:00 98.4 106 16 138/69 (92) 92 Room Air 98.4 12/11/20 02:49 2.0 Physical Exam: PHYSICAL EXAM GENERAL: Alert, awake,, thin, in no acute distress.moans off and on, HEENT: Normocephalic, atraumatic. Anicteric. Oral mucosa moist. NECK: Supple. LUNGS: Decreased breath sounds at the bases, otherwise clear. HEART: S1, S2. Murmur present irregular ABDOMEN: Mildly distended, mild diffuse tenderness w hich pt says is chronic . No rebound or guarding. Bowel sounds present. EXTREMITIES: No edema, no cyanosis. DERMATOLOGIC: Warm, dry, no generalized rash. NEUROLOGIC: Alert, awake, generalized weakness. somewhat confused PICC line out Medications: Inpatient Meds: Medications reviewed. Labs: Lab Laboratory Tests Test 12/10/20 11:52 12/10/20 16:48 Glucose (Fingerstick) 102 mg/dL (70-99) 100 mg/dL (70-99) Micro MICRO noted CT C/A/P CHEST CT: No bulky thoracic lymphadenopathy is evident. No focal aneurysmal dilatation of the thoracic aorta is seen. Calcified atheromatous disease of the coronary arteries is seen. The heart size is at the upper limits normal. No per icardial effusion is identified. A small left-sided pleural effusion and moderate size right-sided pleural effusion are seen. There are consolidative lower lobe lung infiltrates with air bronchograms bilaterally. There are consolidative infiltrates within the lateral and anterior aspects of the right upper lobe. The consolidative infiltrate with air bronchograms was present within the left lower lobe previously and is an unchanged chronic finding. No pneumothorax is seen. The proximal bronchial tree is patent. Generalized osteopenia is seen. Multiple compression fractures of the thoracic spine are seen many of which have been treated with methylmethacrylate. There is a new severe compression fracture of T10. No posterior protrusion of bony elements into the anterior aspect of the spinal canal is seen at this level. Healing bilateral rib cage fractures are evident with sclerosis. However no acute- appearing rib cage fracture is evident. IMPRESSION: Chronic consolidative left lower lobe lung infiltrate with air bronchograms and associated small left-sided pleural effusion. This has not changed significantly since May 18, 2020. New finding of a large consolidative lung infiltrate with air bronchograms within the right lower lobe. There is a moderate-sized right-sided pleural effusion. New consolidative infiltrates within the right upper lobe. Calcified atheromatous disease of the coronary arteries. Bilateral healing rib cage fractures. Multiple compression fractures many of which have been treated with methylmethacrylate. There is a new severe compression fracture of T10 however. ABDOMEN AND PELVIS CT: Multiple hepatic cysts are seen. The spleen is not enlarged. The pancreas is difficult to visualize in this study given lack of contrast. The gallbladder is distended and there is a gallstone measuring 14 mm. No gallbladder wall thickening is evident. The extra hepatic bile duct is difficult to visualize. There are multiple bubbles of air within the upper retroperitoneum which most likely represents intraluminal gas within the duodenum. Delineation of the stomach and and duodenum and small bowel is poor on this study given the lack of contrast. No free intraperitoneal air is seen however. Subcutaneous air is seen within the left anterior abdominal wall which may be related to injections. Mild colonic dilatation is seen. No small bowel dilatation is evident. Evaluation of the bowel and evaluation for soft tissue mass or abscess is difficult within the abdomen and pelvis given lack of contrast. No free fluid is evident. There may be weakness within the internal ring of the inguinal canal on both sides with bowel loops seen extending into the opening on both sides. No bowel wall thickening or obstructive bowel pattern is seen related to this. The appendix cannot be visualized in this study. Urinary bladder is distended. Urinary bladder wall appears smooth. Calcified atheromatous disease of the abdominal aorta and iliac arteries is seen. No focal aneurysmal dilatation is seen. Evaluation for lymphadenopathy is difficult. No obvious bulky lymphadenopathy is seen on this study. The ureters are difficult to visualize distal to the kidneys. Mild chronic pelvocaliectasis is seen. No urinary tract stone is seen. No perinephric fluid collection is seen. Generalized osteopenia is seen. Old compression fractures of L1 and L2 and L3 and L4 are seen. No new compression fracture is seen. IMPRESSION: Difficult study to interpret given the lack of contrast. No small bowel obstruction is evident. There is mild dilatation of the colon which may be due to a mild colonic ileus. No free air or free fluid is seen. Cholelithiasis. Distended gallbladder. No gallbladder wall thickening. Hepatic cysts. Chronic compression fractures of the lumbar spine. Small amount of air within the left anterior abdominal wall which may be related to injections. 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 mobile vegetation on the lena /lateral leaflet of the tricuspid valve measuring approximately 1.1 x 1.3 cm. s/p cath removal 12/08 Fever. Pattern improved Leucocytosis Short gut syndrome,On TPN. h/o Ischemic colitis Debility UC staph epidermidis 80K ,Bladder [address] History of ovarian cancer. Transaminitis, improved. Anemia. Severe Protein-calorie malnutrition Acute metabolic encephalopathy,improving , some what confused, baseline unknown Kyphosis Plan: Plan of Care Cont daptomycin for now, may need renal dosing. CPK 31 We will add cefazolin pending all other blood culture results Follow up blood cultures from outside hospital for final id of staph, still pending F/U positive repeat BC from 12/05, 12/06, 12/08. F/U Repeat blood cultures 12/10 negative so far PICC line discontinued; cath tip cults neg so far, May need CTS evaluation, discussed with Dr. Christie. Pt is a poor surgical candidate Will defer to primary team for final goals of treatment . CT of thoracolumbar spine, chest abdomen and pelvis noted Avoid placing picc line for atleast 48-72 hours from last negative blood culture Prognosis very poor Refusing to go to SNF per pt Consider palliative care/hospice Discussed with nursing staff. KEIKO MORALES MD December 11, 2020 08:36
[2020-12-11] MEDS: ASPIRIN CHEWABLE 81 MG TABLET. PO SCH ×2 (09:00→09:30)
[2020-12-11] MEDS: LACTOBACILLUS RHAMNOSUS GG 1 CAPSULE. PO SCH ×3 (09:00→20:26)
[2020-12-11] MEDS: ceFAZolin SODIUM IV Push 1 GM VIAL. IVP SCH (09:30)
[2020-12-11 11:00] VITALS: BP 140/72
--- NOTE | 2020-12-11 13:32 | PDOC ---
[employer] PROGRESS NOTE Date of Service DOS: DATE: 12/11/20 TIME: 13:28 Chief Complaint Chief Complaint 1. Sepsis, bacteremia from PICC line, now likely endocarditis, 2. underweight, severe malnutrition, POA 3. Intractable back pain. 4. History of ovarian cancer. 5. Short bowel syndrome, on total parenteral nutrition. 6. Transaminitis, improved. 7. Anemia. 8. severe Protein-calorie malnutrition POA //. past medical history of short- bowel syndrome and ON TPN. AT home 9. Acute metabolic encephalopathy 10. fever 11. Acute hypoxic resp failure 12. 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 History of Present Illness History of Present Illness 12/11, has now had CT surg eval, Dr. Kayce ball current medical treatment prognosis poor, discussed with daughter, Janice is confused today, still, has been delirious since the bacteremia started, cont broad IV abx Patient is an 84-year-old female with past medical history CVA, HTN, ovarian cancer, short bowel syndrome, compression fractures, who presented to the ER with complaint of fever, she had a positive blood culture reported to be possible staph this week Daughter states 3 to 4 days after PICC line replacement patient started to run a fever of 99. Patient was evaluated by home health and her primary care physician who ordered basic labs and blood cultures. Over the last 3 days patient has had a fever greater than 102. Daughter states during this time patient has had episodes of confusion WBC IN ER 15.3 past medical history of short-bowel syndrome and ON TPN. plan echo, id and cardiology consults admit temp now 101 F , WILL repeat blood cultures again Follow up labs and cultures ID CONSULT D/C PICC line IF source crp,, procalcitonin trend labs ECHO O2 SUPPORT 12/07/2020 Patient seen and evaluated today. She is afebrile today. Denies any nausea or vomiting, and states that she feels better today. Had lengthy discussion with patient about her medical history and her goals of care. I then spoke with her daughter (DPOA) about her current condition, or plan of care, and CODE STATUS. Patient's DPOA states that she would want her mother to be DNR, and patient agrees. She had positive blood culture showing gram-positive cocci in pairs in 2-4 bottles. Continue with IV antibiotics, repeat blood cultures pending. Per ID, avoid PICC line replacement until repeat blood cultures negative. Advance Care Planning: Total time spent [id number] with patient 18 minutes in discussion with goals of care, comfort care, end-of-life care, pain management, code status; as a result of this conversation patient is now DNR. Patient names her daughter and DPOA as surrogate decision-maker. 12/08/2020 Afebrile, no acute events overnight. Patient seen with daughter at bedside. She reports some anxiety that her daughter attributes to the inappropriate timing of her Ativan. Discussed with RN, will change his orders. Continue Zosyn and daptomycin, per ID. We will continue to follow blood cultures. Once blood cultures have cleared, will place PICC line 4872 hours after last negative blood culture. 12/09/2020 Patient afebrile, tachycardic, currently breathing on 2 L nasal cannula. Transthoracic echocardiogram performed on 12/07 showed a mobile vegetation on the lena/lateral leaflet of the tricuspid valve measuring approximately 1.1 x 1.3 cm. Pulmonary blood cultures growing staph epidermidis. Continue vancomycin and daptomycin, per ID. WBC improving. Potassium 3.2; will attempt to replace IV potassium. Vitals/I&O Vitals/I&O: Vital Signs Date Time Temp Pulse Resp B/P (MAP) Pulse Ox O2 Delivery O2 Flow Rate FiO2 12/11/20 11:00 98.0 107 16 140/72 (94) 95 Room Air 98.0 12/11/20 08:10 2.0 I & O 12/10/20 12/10/20 12/11/20 15:00 23:00 07:00 Intake Total 0 ml 60 ml Balance 0 ml 60 ml Physical Exam Physical Exam: GENERAL: Alert, awake,, thin, some distress and pain HEENT: Normocephalic, atraumatic. Anicteric. Oral mucosa moist. NECK: Supple. LUNGS: Decreased breath sounds at the bases, otherwise clear. HEART: S1, S2. Murmur present irregular ABDOMEN: Mildly distended, mild diffuse tenderness w hich pt says is chronic . No rebound or guarding. Bowel sounds present. EXTREMITIES: No edema, no cyanosis. DERMATOLOGIC: Warm, dry, no generalized rash. NEUROLOGIC: Alert, awake, generalized weakness. somewhat confused PICC line out General: Alert, Cooperative, mild distress, moderate distress Heart: Regular rate, Other (Tachycardic) Lungs: Crackles Abdomen: Soft, No tenderness Extremities: No cyanosis, No edema Skin: No rashes, No significant lesion Labs Labs: Laboratory Tests Test 12/10/20 16:48 Glucose (Fingerstick) 100 mg/dL (70-99) Assessment and Plan Assessmemt and Plan Problems Medical Problems: (1) Confusion Status: Acute (2) Fever Status: Acute Comment Review of Relevant I have reviewed the following items yuni (where applicable) has been applied. Medications: Current Medications Medications (Trade) Dose Ordered Sig/Yeimi Route PRN Reason Start Time Stop Time Status Last Admin Dose Admin Cefazolin Sodium (Ancef) 1 gm DAILY IVP 12/11/20 09:00 12/11/20 09:30 Justifications for Admission Other Justification Intractable back pain TYRESE OLIVER MD December 11, 2020 13:32
[2020-12-11] MEDS: DAPTOMYCIN IV SCH (14:24)
[2020-12-11] MEDS: NORMAL SALINE IV SCH (14:24)
[2020-12-11 15:00] VITALS: BP 130/68
[2020-12-11 19:00] VITALS: BP 131/57
[2020-12-11] MEDS: COLESTIPOL HCL 1 GM TABLET PO SCH (20:26)
[2020-12-11] MEDS: ENOXAPARIN 30 MG/0.3 ML SYRINGE. SQ SCH (20:27)
[2020-12-11] MEDS: amLODIPine BESYLATE 10 MG TABLET PO SCH (20:27)
[2020-12-11 23:00] VITALS: BP 128/74
[2020-12-12] MEDS: AMINO AC 3%/ELECTROLYTE/GLYCER 1,000 ML IV SCH ×2 (02:21→15:42)
[2020-12-12 03:00] VITALS: BP 121/55
[2020-12-12 07:00] VITALS: BP 112/82
[2020-12-12] MEDS: PANTOPRAZOLE 40 MG TABLET.DR. PO SCH (07:30)
[2020-12-12] MEDS: LORazepam 0.5 MG TABLET PO SCH ×2 (08:00→15:41)
[2020-12-12] MEDS: ASPIRIN CHEWABLE 81 MG TABLET. PO SCH (09:00)
[2020-12-12] MEDS: ceFAZolin SODIUM IV Push 1 GM VIAL. IVP SCH (09:00)
[2020-12-12] MEDS: LACTOBACILLUS RHAMNOSUS GG 1 CAPSULE. PO SCH ×2 (09:00→21:00)
[2020-12-12] MEDS: fentaNYL 12MCG/HR PATCH 1 PATCH PATCH.TD72 TD SCH (09:05)
--- NOTE | 2020-12-12 09:35 | PDOC ---
Infectious Disease Note Subjective: Subjective Patient cont to moan when awakened from sleep States does not feel well Does not answer any more questions P.o. intake is poor No fevers Daughter at bedside Discussed with nursing staff Vital Signs: Vital Signs Vital Signs Date Time Temp Pulse Resp B/P (MAP) Pulse Ox O2 Delivery O2 Flow Rate FiO2 12/12/20 09:05 Nasal Cannula 2.0 12/12/20 08:05 91 12/12/20 07:00 97.9 100 18 112/82 (92) 97.9 Physical Exam: PHYSICAL EXAM GENERAL: Sleepy lethargic female arousable HEENT: Normocephalic, atraumatic. Anicteric. Oral mucosa dry NECK: Supple. LUNGS: Decreased breath sounds at the bases, otherwise clear. HEART: Murmur present irregular heartbeat ABDOMEN: Mildly distended, mild diffuse tenderness +,BS + EXTREMITIES: No edema, no cyanosis. DERMATOLOGIC: Warm, dry, no generalized rash. NEUROLOGIC: Sleepy but arousable goes back to sleep immediately generalized weakness. somewhat confused PICC line out Medications: Inpatient Meds: Medications reviewed. Labs: Lab Laboratory Tests Test 12/11/20 16:44 Glucose (Fingerstick) 104 mg/dL (70-99) Micro MICRO noted CT C/A/P CHEST CT: No bulky thoracic lymphadenopathy is evident. No focal aneurysmal dilatation of the thoracic aorta is seen. Calcified atheromatous disease of the coronary arteries is seen. The heart size is at the upper limits normal. No pericardial effusion is identified. A small left-sided pleural effusion and moderate size right-sided pleural effusion are seen. There are consolidative lower lobe lung infiltrates with air bronchograms bilaterally. There are consolidative infiltrates within the lateral and anterior aspects of the right upper lobe. The consolidative infiltrate with air bronchograms was present within the left lower lobe previously and is an unchanged chronic finding. No pneumothorax is seen. The proximal bronchial tree is patent. Generalized osteopenia is seen. Multiple compression fractures of the thoracic spine are seen many of which have been treated with methylmethacrylate. There is a new severe compression fracture of T10. No posterior protrusion of bony elements into the anterior aspect of the spinal canal is seen at this level. Healing bilateral rib cage fractures are evident with sclerosis. However no acute- appearing rib cage fracture is evident. IMPRESSION: Chronic consolidative left lower lobe lung infiltrate with air bronchograms and associated small left-sided pleural effusion. This has not changed significantly since May 18, 2020. New finding of a large consolidative lung infiltrate with air bronchograms within the right lower lobe. There is a moderate-sized right-sided pleural effusion. New consolidative infiltrates within the right upper lobe. Calcified atheromatous disease of the coronary arteries. Bilateral healing rib cage fractures. Multiple compression fractures many of which have been treated with methylmethacrylate. There is a new severe compression fracture of T10 however. ABDOMEN AND PELVIS CT: Multiple hepatic cysts are seen. The spleen is not e nlarged. The pancreas is difficult to visualize in this study given lack of contrast. The gallbladder is distended and there is a gallstone measuring 14 mm. No gallbladder wall thickening is evident. The extra hepatic bile duct is difficult to visualize. There are multiple bubbles of air within the upper retroperitoneum which most likely represents intraluminal gas within the duode num. Delineation of the stomach and and duodenum and small bowel is poor on this study given the lack of contrast. No free intraperitoneal air is seen however. Subcutaneous air is seen within the left anterior abdominal wall which may be related to injections. Mild colonic dilatation is seen. No small bowel dilatation is evident. Evaluation of the bowel and evaluation for soft tissue mass or abscess is difficult within the abdomen and pelvis given lack of contrast. No free fluid is evident. There may be weakness within the internal ring of the inguinal canal on both sides with bowel loops seen extending into the opening on both sides. No bowel wall thickening or obstructive bowel pattern is seen related to this. The appendix cannot be visualized in this study. Urinary bladder is distended. Urinary bladder wall appears smooth. Calcified atheromatous disease of the abdominal aorta and iliac arteries is seen. No focal aneurysmal dilatation is seen. Evaluation for lymphadenopathy is difficult. No obvious bulky lymphadenopathy is seen on this study. The ureters are difficult to visualize distal to the kidneys. Mild chronic pelvocaliectasis is seen. No urinary tract stone is seen. No perinephric fluid collection is seen. Generalized osteopenia is seen. Old compression fractures of L1 and L2 and L3 and L4 are seen. No new compression fracture is seen. IMPRESSION: Difficult study to interpret given the lack of contrast. No small bowel obstruction is evident. There is mild dilatation of the colon which may be due to a mild colonic ileus. No free air or free fluid is seen. Cholelithiasis. Distended gallbladder. No gallbladder wall thickening. Hepatic cysts. Chronic compression fractures of the lumbar spine. Small amount of air within the left anterior abdominal wall which may be related to injections. Objective: Assessment: [facility] [address] for more than 6 months, ID still pending, not staph aureus likely staph epidermidis Persistent Gram-positive bacteremia here present on admission on 12/05, 12/06, 12/08 Staphylococcal epidermidis MSSE staph warneri Tricuspid valve endocarditis 2 D Echo Moderate tricuspid regurgitation. mobile vegetation on the lena/lateral leaflet of the tricuspid valve measuring approximately 1.1 x 1.3 cm. s/p cath removal 12/08 Fever. Pattern improved Leucocytosis Short gut syndrome,On TPN. h/o Ischemic colitis Debility UC staph epidermidis 80K ,Bladder [address] History of ovarian cancer. Transaminitis, improved. Anemia. Severe Protein-calorie malnutrition Acute metabolic encephalopathy,improving , some what confused, baseline unknown Kyphosis Plan: Plan of Care Cont daptomycin for now, may need renal dosing. CPK 31 Cont cefazolin pending final blood culture results Follow up blood cultures from outside hospital for final id of coagulase- negative staph, still pending F/U positive repeat BC from 12/05, 12/06, 12/08. F/U Repeat blood cultures 12/10 and 12/11 negative so far PICC line discontinued; cath tip cults neg so far, May need CTS evaluation, discussed with Dr. Christie. Pt is a poor surgical candidate Will defer to primary team for final goals of treatment . CT of thoracolumbar spine, chest abdomen and pelvis noted Avoid placing picc line for atleast 48-72 hours from last negative blood culture Prognosis very poor Refusing to go to SNF per pt Consider palliative care/hospice Discussed with daughter at bedside They are leaning towards comfort measures Antibiotics can be discontinued depending on final goals of treatment Discussed with nursing staff. KEIKO MORALES MD Dec 12, 2020 09:35
--- NOTE | 2020-12-12 10:20 | NUR ---
STEVEN following. Discussed with RN, pt from home, 2L, regular diet. Declining SNF and hospice at this time per Stephanie (KRISTYN). Per ID - avoid PICC for at least 48-72 hours from last negative culture. STEVEN will continue to follow. Addendum: 12/12/20 at 1238 by LORE HARRIS Pt's daughter, Rayne requested to see STEVEN. STEVEN met with Rayne - she would like to transition pt from [facility] to [facility], and have pt return home. STEVEN phoned and faxed clinicals to [facility] - awaiting confirmation. Rayne requested stretcher transportation home when pt is being discharged. RN notified. Addendum: 12/12/20 at 1522 by LORE HARRIS Pt accepted with [facility] - equipment being delivered this evening. Plan for discharge home tomorrow morning (6/2/21) with hospice. SW to arrange FD transportation. Dr. Ramos and RN notified.
[2020-12-12 10:23] VITALS: BP 110/59
--- NOTE | 2020-12-12 11:14 | PDOC ---
[employer] PROGRESS NOTE Date of Service DOS: DATE: 12/12/20 TIME: 11:12 Chief Complaint Chief Complaint 1. Sepsis, bacteremia from PICC line, now likely endocarditis, 2. underweight, severe malnutrition, POA 3. Intractable back pain. 4. History of ovarian cancer. 5. Short bowel syndrome, on total parenteral nutrition. 6. Transaminitis, improved. 7. Anemia. 8. severe Protein-calorie malnutrition POA //. past medical history of short- bowel syndrome and ON TPN. AT home 9. Acute metabolic encephalopathy 10. fever 11. Acute hypoxic resp failure 12. 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 History of Present Illness History of Present Illness 12/12/2020 Patient seen and examined Discussed with RN Discussed with case management Chart reviewed She had 4 out of 4 blood cultures positive that were drawn on the She is on IV Dapto Also on IV PPN Infectious disease following please see their recommendations below 12/11, has now had CT surg eval, Dr. Devries cont current medical treatment prognosis poor, discussed with daughter, Janice is confused today, still, has been delirious since the bacteremia started, cont broad IV abx Patient is an 84-year-old female with past medical history CVA, HTN, ovarian cancer, short bowel syndrome, compression fractures, who presented to the ER with complaint of fever, she had a positive blood culture reported to be possible staph this week Daughter states 3 to 4 days after PICC line replacement patient started to run a fever of 99. Patient was evaluated by home health and her primary care physician who ordered basic labs and blood cultures. Over the last 3 days patient has had a fever greater than 102. Daughter states during this time patient has had episodes of confusion WBC IN ER 15.3 past medical history of short-bowel syndrome and ON TPN. plan echo, id and cardiology consults admit temp now 101 F , WILL repeat blood cultures again Follow up labs and cultures ID CONSULT D/C PICC line IF source crp,, procalcitonin trend labs ECHO O2 SUPPORT 12/07/2020 Patient seen and evaluated today. She is afebrile today. Denies any nausea or vomiting, and states that she feels better today. Had lengthy discussion with patient about her medical history and her goals of care. I then spoke with her daughter (CELINE) about her current condition, or plan of care, and CODE STATUS. Patient's DPOA states that she would want her mother to be DNR, and patient agrees. She had positive blood culture showing gram-positive cocci in pairs in 2-4 bottles. Continue with IV antibiotics, repeat blood cultures pending. Per ID, avoid PICC line replacement until repeat blood cultures negative. Advance Care Planning: Total time spent [id number] with patient 18 minutes in discussion with goals of care, comfort care, end-of-life care, pain management, code status; as a result of this conversation patient is now DNR. Patient names her daughter and DPOA as surrogate decision-maker. 12/08/2020 Afebrile, no acute events overnight. Patient seen with daughter at bedside. She reports some anxiety that her daughter attributes to the inappropriate timing of her Ativan. Discussed with RN, will change his orders. Continue Zosyn and daptomycin, per ID. We will continue to follow blood cultures. Once blood cultures have cleared, will place PICC line 4872 hours after last negative blood culture. 12/09/2020 Patient afebrile, tachycardic, currently breathing on 2 L nasal cannula. Transthoracic echocardiogram performed on 12/07 showed a mobile vegetation on the lena/lateral leaflet of the tricuspid valve measuring approximately 1.1 x 1.3 cm. Pulmonary blood cultures growing staph epidermidis. Continue vancomycin and daptomycin, per ID. WBC improving. Potassium 3.2; will attempt to replace IV potassium. Vitals/I&O Vitals/I&O: Vital Signs Date Time Temp Pulse Resp B/P (MAP) Pulse Ox O2 Delivery O2 Flow Rate FiO2 12/12/20 10:26 98.4 98.4 12/12/20 10:23 88 18 110/59 (76) 84 Room Air 12/12/20 09:05 2.0 Physical Exam Physical Exam: GENERAL: Sleepy lethargic female arousable HEENT: Normocephalic, atraumatic. Anicteric. Oral mucosa dry NECK: Supple. LUNGS: Decreased breath sounds at the bases, otherwise clear. HEART: Murmur present irregular heartbeat ABDOMEN: Mildly distended, mild diffuse tenderness +,BS + EXTREMITIES: No edema, no cyanosis. DERMATOLOGIC: Warm, dry, no generalized rash. NEUROLOGIC: Sleepy but arousable goes back to sleep immediately generalized weakness. somewhat confused PICC line out General: Alert, Cooperative, mild distress, moderate distress Heart: Regular rate, Other (Tachycardic) Lungs: Crackles Abdomen: Soft, No tenderness Extremities: No cyanosis, No edema Skin: No rashes, No significant lesion Labs Labs: Laboratory Tests Test 12/11/20 16:44 Glucose (Fingerstick) 104 mg/dL (70-99) Assessment and Plan Assessmemt and Plan Problems Medical Problems: (1) Confusion Status: Acute (2) Fever Status: Acute 1. Sepsis, bacteremia from PICC line, now likely endocarditis, 2. underweight, severe malnutrition, POA 3. Intractable back pain. 4. History of ovarian cancer. 5. Short bowel syndrome, on total parenteral nutrition. 6. Transaminitis, improved. 7. Anemia. 8. severe Protein-calorie malnutrition POA //. past medical history of short- bowel syndrome and ON TPN. AT home 9. Acute metabolic encephalopathy 10. fever 11. Acute hypoxic resp failure 12. 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 Plan IV antibiotics per infectious disease Home meds DVT prophylaxis Full code Prognosis guarded long-term Appreciate IDs input Discharge disposition pending suspect she might need hospice? Per infectious disease note please see the following recommendations and I agree; Cont daptomycin for now, may need renal dosing. CPK 31 Cont cefazolin pending final blood culture results Follow up blood cultures from outside hospital for final id of coagulase- negative staph, still pending F/U positive repeat BC from 12/05, 12/06, 12/08. F/U Repeat blood cultures 12/10 and 12/11 negative so far PICC line discontinued; cath tip cults neg so far, May need CTS evaluation, discussed with Dr. Christie. Pt is a poor surgical candidate Will defer to primary team for final goals of treatment . CT of thoracolumbar spine, chest abdomen and pelvis noted Avoid placing picc line for atleast 48-72 hours from last negative blood culture Prognosis very poor Refusing to go to SNF per pt Consider palliative care/hospice Discussed with daughter at bedside They are leaning towards comfort measures Antibiotics can be discontinued depending on final goals of treatment Discussed with nursing staff. Comment Review of Relevant I have reviewed the following items yuni (where applicable) has been applied. Justifications for Admission Other Justification Intractable back pain HUSSEIN CORRIGAN III DO Dec 12, 2020 11:14
--- NOTE | 2020-12-12 12:23 | PDOC ---
Date of Service: DATE: 12/12/20 TIME: 12:16 Subjective: Subjective: Daughter Rayne present - indicates had different discussions w/ hospitalists - wants to talk more w/ them but as of now her plan is to not replace PICC line and go home possibly w/ Hospice - would like mental status to improve. Objective: Objective: On PPN. D/w nurse - barely eats. Vital Signs: Vital Signs Date Time Temp Pulse Resp B/P (MAP) Pulse Ox O2 Delivery O2 Flow Rate FiO2 12/12/20 10:26 98.4 98.4 12/12/20 10:23 88 18 110/59 (76) 84 Room Air 12/12/20 09:05 2.0 Labs: Laboratory Tests Test 12/11/20 16:44 Glucose (Fingerstick) 104 mg/dL FINAL ID= [STAPHYLOCOCCUS WARNERI] FINAL ID= [STAPHYLOCOCCUS EPIDERMIDIS] Imaging: C/A/P CT 12/09 IMPRESSION: Chronic consolidative left lower lobe lung infiltrate with air bronchograms and associated small left-sided pleural effusion. This has not changed significantly since May 18, 2020. New finding of a large consolidative lung infiltrate with air bronchograms within the right lower lobe. There is a moderate-sized right-sided pleural effusion. New consolidative infiltrates within the right upper lobe. Calcified atheromatous disease of the coronary arteries. Bilateral healing rib cage fractures. Multiple compression fractures many of which have been treated with methylmethacrylate. There is a new severe compression fracture of T10 however. IMPRESSION: Difficult study to interpret given the lack of contrast. No small bowel obstruction is evident. There is mild dilatation of the colon which may be due to a mild colonic ileus. No free air or free fluid is seen. Cholelithiasis. Distended gallbladder. No gallbladder wall thickening. Hepatic cysts. Chronic compression fractures of the lumbar spine. Small amount of air within the left anterior abdominal wall which may be related to injections. T and L Spine CT 12/10 IMPRESSION: Multiple chronic compression fractures as discussed above. There is a new severe compression fracture of T10 and a mild increase in the vertical compression of the chronic T11 compression fracture. IMPRESSION: Chronic biconcave compression deformities of L1 and L2 and L3 and L4 and chronic compression deformities of the superior and inferior endplates of L5 which are stable. No new compression fracture is evident. No spinal canal stenosis. The urinary bladder is moderately distended measuring over 11 cm. PE: GEN: chronically ill, thin NEURO/PSYCH: moans, doesn't answer questions A/P: Staph bacteremia, tricuspid valve vegetation Short gut syndrome BMI 12.8 -- Difficult situation. Goals of care per primary. Justicifation of Admission Dx: Justifications for Admission: Justification of Admission Dx: Yes CHF: Sev. Electrolyte Abnormal NENO FAY Dec 12, 2020 12:23
[2020-12-12] MEDS: DAPTOMYCIN IV SCH (13:52)
[2020-12-12] MEDS: NORMAL SALINE IV SCH (13:52)
[2020-12-12 14:18] VITALS: BP 138/66
[2020-12-12 19:00] VITALS: BP 119/62
[2020-12-12] MEDS: COLESTIPOL HCL 1 GM TABLET PO SCH ×2 (19:36→21:00)
[2020-12-12] MEDS: amLODIPine BESYLATE 10 MG TABLET PO SCH (21:00)
[2020-12-12] MEDS: ENOXAPARIN 30 MG/0.3 ML SYRINGE. SQ SCH (21:00)
--- NOTE | 2020-12-12 21:26 | PDOC ---
PROGRESS NOTES Date of Service: DATE: 12/12/20 TIME: 21:26 Subjective Subjective No new complaints. Family considering palliative care. Objective Objective Vital Signs Date Time Temp Pulse Resp B/P (MAP) Pulse Ox O2 Delivery O2 Flow Rate FiO2 12/12/20 19:00 97.9 62 18 119/62 (81) 93 Nasal Cannula 2.0 97.9 Intake and Output 12/12/20 07:00 # Voids 7 Physical Exam Abdomen: Soft, No tenderness Heart: Regular rate, Other (Tachycardic, PSM left lower parasternal border) Extremities: No cyanosis, No edema General: Alert, Cooperative HEENT: Atraumatic Lungs: Clear to auscultation Neuro: Normal speech, Sensation intact Psych/Mental Status: Other (forgetful, flat affect ) Skin: No rashes, No significant lesion Assessment Assessment 1. 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 Continue antibiotics per ID team. Overall poor prognosis. 2. Acute metabolic encephalopathy, severe PCM: Per IM 3. Short gut syndrome, anemia: GI following 4. Hypertension: Controlled Plan Plan of Care Problems Medical Problems: (1) Confusion Status: Acute (2) Fever Status: Acute Comment Review of Relevant I have reviewed the following items yuni (where applicable) has been applied. Labs Microbiology 12/11/20 Blood Culture - Preliminary, Resulted NO GROWTH AFTER 1 DAY 12/07/20 Gram Stain - Final, Complete 12/07/20 Aerobic Culture - Final, Complete 12/06/20 Urine Culture - Final, Complete Vitals/I & O Vital Sign - Last 24 Hours 12/11/20 12/12/20 12/12/20 12/12/20 23:00 03:00 07:00 07:15 Temp 99.5 98.2 97.9 99.5 98.2 97.9 Pulse 93 98 100 Resp 18 18 18 B/P (MAP) 128/74 (92) 121/55 (77) 112/82 (92) Pulse Ox 90 90 89 O2 Delivery Nasal Cannula Nasal Cannula Nasal Cannula Nasal Cannula O2 Flow Rate 2.0 2.0 2.0 2.0 12/12/20 12/12/20 12/12/20 12/12/20 08:05 09:05 10:23 10:26 Temp 97.9 98.4 97.9 98.4 Pulse 88 Resp 18 B/P (MAP) 110/59 (76) Pulse Ox 91 84 O2 Delivery Nasal Cannula Nasal Cannula Room Air O2 Flow Rate 3.0 2.0 12/12/20 12/12/20 12/12/20 13:52 14:18 19:00 Temp 98.0 97.9 98.0 97.9 Pulse 104 62 Resp 18 18 B/P (MAP) 138/66 (90) 119/62 (81) Pulse Ox 95 93 O2 Delivery Nasal Cannula Room Air Nasal Cannula O2 Flow Rate 2.0 2.0 YADIRA DAVIS MD Dec 12, 2020 21:26
[2020-12-12 23:00] VITALS: BP 160/62
[2020-12-13 02:58] VITALS: BP 120/61
[2020-12-13] MEDS: AMINO AC 3%/ELECTROLYTE/GLYCER 1,000 ML IV SCH (04:51)
[2020-12-13 07:00] VITALS: BP 105/42
--- NOTE | 2020-12-13 08:52 | PDOC ---
Infectious Disease Note Subjective: Subjective Patient minimally responsive Daughter Rayne at bedside Transitioned to hospice Vital Signs: Vital Signs Vital Signs Date Time Temp Pulse Resp B/P (MAP) Pulse Ox O2 Delivery O2 Flow Rate FiO2 12/13/20 07:00 98.2 82 16 105/42 (63) 93 Room Air 98.2 12/13/20 02:58 2.0 Physical Exam: PHYSICAL EXAM GENERAL: Minimally responsive female lethargic HEENT: Normocephalic, atraumatic. Anicteric. Oral mucosa dry NECK: Supple. LUNGS: Coarse breath sounds anteriorly HEART: Murmur present irregular heartbeat ABDOMEN: Mildly distended, mild diffuse tenderness +,BS + EXTREMITIES: No edema, no cyanosis. DERMATOLOGIC: Warm, dry, no generalized rash. NEUROLOGIC: Lethargic PICC line out Medications: Inpatient Meds: Medications reviewed. Labs: Micro MICRO noted CT C/A/P CHEST CT: No bulky thoracic lymphadenopathy is evident. No focal aneurysmal dilatation of the thoracic aorta is seen. Calcified atheromatous disease of the coronary arteries is seen. The heart size is at the upper limits normal. No pericardial effusion is identified. A small left-sided pleural effusion and moderate size right-sided pleural effusion are seen. There are consolidative lower lobe lung infiltrates with air bronchograms bilaterally. There are consolidative infiltrates within the lateral and anterior aspects of the right upper lobe. The consolidative infiltrate with air bronchograms was present within the left lower lobe previously and is an unchanged chronic finding. No pneumothorax is seen. The proximal bronchial tree is patent. Generalized osteopenia is seen. Multiple compression fractures of the thoracic spine are seen many of which have been treated with methylmethacrylate. There is a new severe compression fracture of T10. No posterior protrusion of bony elements into the anterior aspect of the spinal canal is seen at this level. Healing bilateral rib cage fractures are evident with sclerosis. However no acute- appearing rib cage fracture is evident. IMPRESSION: Chronic consolidative left lower lobe lung infiltrate with air bronchograms and associated small left-sided pleural effusion. This has not changed significantly since May 18, 2020. New finding of a large consolidative lung infiltrate with air bronchograms within the right lower lobe. There is a moderate-sized right-sided pleural effusion. New consolidative infiltrates within the right upper lobe. Calcified atheromatous disease of the coronary arteries. Bilateral healing rib cage fractures. Multiple compression fractures many of which have been treated with methylmethacrylate. There is a new severe compression fracture of T10 however. ABDOMEN AND PELVIS CT: Multiple hepatic cysts are seen. The spleen is not enlarged. The pancreas is difficult to visualize in this study given lack of contrast. The gallbladder is distended and there is a gallstone measuring 14 mm. No gallbladder wall thickening is evident. The extra hepatic bile duct is difficult to visualize. There are multiple bubbles of air within the upper retroperitoneum which most likely represents intraluminal gas within the duodenum. Delineation of the stomach and and duodenum and small bowel is poor on this study given the lack of contrast. No free intraperitoneal air is seen however. Subcutaneous air is seen within the left anterior abdominal wall which may be related to injections. Mild colonic dilatation is seen. No small bowel dilatation is evident. Evaluation of the bowel and evaluation for soft tissue mass or abscess is difficult within the abdomen and pelvis given lack of contrast. No free fluid is evident. There may be weakness within the internal ring of the inguinal canal on both sides with bowel loops seen extending into the opening on both sides. No bowel wall thickening or obstructive bowel pattern is seen related to this. The appendix cannot be visualized in this study. Urinary bladder is distended. Urinary bladder wall appears smooth. Calcified atheromatous disease of the abdominal aorta and iliac arteries is seen. No focal aneurysmal dilatation is seen. Evaluation for lymphadenopathy is difficult. No obvious bulky lymphadenopathy is seen on this study. The ureters are difficult to visualize distal to the kidneys. Mild chronic pelvocaliectasis is seen. No urinary tract stone is seen. No perinephric fluid collection is seen. Generaliz ed osteopenia is seen. Old compression fractures of L1 and L2 and L3 and L4 are seen. No new compression fracture is seen. IMPRESSION: Difficult study to interpret given the lack of contrast. No small bowel obstruction is evident. There is mild dilatation of the colon which may be due to a mild colonic ileus. No free air or free fluid is seen. Cholelithiasis. Distended gallbladder. No gallbladder wall thickening. Hepatic cysts. Chronic compression fractures of the lumbar spine. Small amount of air within the left anterior abdominal wall which may be related to injections. Objective: Assessment: High-grade Gram-positive bacteremia Staph at [facility] 12/[address] for more than 6 months, ID still pending, not staph aureus likely staph epidermidis Persistent Gram-positive bacteremia here present on admission on 12/05, 12/06, 12/08 Staphylococcal epidermidis MSSE staph warneri Tricuspid valve endocarditis 2 D Echo Moderate tricuspid regurgitation. mobile vegetation on the lena/lateral leaflet of the tricuspid valve measuring approximately 1.1 x 1.3 cm. s/p cath removal 12/08 Fever. Pattern improved Leucocytosis Short gut syndrome,On TPN. h/o Ischemic colitis Debility UC staph epidermidis 80K ,Bladder [address] History of ovarian cancer. Transaminitis, improved. Anemia. Severe Protein-calorie malnutrition Acute metabolic encephalopathy,improving , some what confused, baseline unknown Kyphosis Plan: Plan of Care Patient is in the process of being transitioned to hospice with home discharge per daughter Rayne at bedside We will sign off Call with any questions Discussed with nursing staff. KEIKO MORALES MD Dec 13, 2020 08:52
--- NOTE | 2020-12-13 10:28 | SNU/HH DC ---
DISCHARGE ORDERS DISCHARGE INFORMATION: FINAL DIAGNOSIS Problems Medical Problems: (1) Confusion Status: Acute (2) Fever Status: Acute CONDITION ON DISCHARGE: Stable CODE STATUS: Code Status: DNR/DNI CORRECTION: SNF STAY <30 DAYS: No HOSPICE: HOSPICE: Yes HOSPICE EVAL & TREAT: Yes LTAC: ADMIT TO LTAC: No POST DISCHARGE ORDERS: ACTIVITY ORDERS: Activity as tolerated WEIGHT BEARING STATUS: As tolerated DIET AFTER DISCHARGE: Regular WOUND/INCISION CARE: Change dressing CHECKS AFTER DISCHARGE: CHECKS AFTER DISCHARGE: Check blood press - daily, Check your Temp as needed TREATMENT/EQUIPMENT ORDERS: ADAPTIVE EQUIPMENT NEEDED: None DISCHARGE MEDICATIONS: Home Meds Active Scripts [Tpn Per Pharmacy] 1 EACH EACH No Conflict Check, 1 EACH [facility] PRN DAILY PRN for SEE COMMENTS Prov:HUSSEIN CORRIGAN III DO 03/07/20 [Tpn Per Pharmacy] 1 EACH EACH No Conflict Check, 1 EACH MC PRN DAILY PRN for SEE COMMENTS Prov:CIRO SERNA MD 02/17/20 Reported Medications Fentanyl (FENTANYL 12mcg/hr) 1 Each Patch.td72, 1 PATCH TD Q72H for , PATCH 11/07/20 Acetaminophen (TYLENOL) 325 Mg Tablet, 1 TAB PO PRN Q4HRS for , #30 TAB 11/07/20 Lorazepam (ATIVAN) 0.5 Mg Tablet, 0.5 MG PO BID for , TAB 11/07/20 Colestipol Hcl (COLESTID) 1 Gm Tablet, 2 G PO QHS for Diarrhea for 90 Days 05/11/20 Amlodipine Besylate (AMLODIPINE BESYLATE) 10 Mg Tablet, 10 MG PO HS for hypertension, TAB 02/15/20 Aspirin (ASPIRIN) 81 Mg Tab.chew, 81 MG PO DAILY, TAB.CHEW 10/03/16 HUSSEIN CORRIGAN III DO Dec 13, 2020 10:28
--- NOTE | 2020-12-13 10:31 | NUR ---
SW following. Discussed with RN, discharge order for home with hospice. Transportation arranged for 11am with [facility]. RN, family and [facility] notified. No further SW needs.
--- NOTE | 2020-12-13 10:47 | PDOC ---
Date of Service: DATE: 12/13/20 TIME: 10:45 Subjective: Subjective: "I don't know what to do." Objective: Objective: Reviewed chart and d/w daughter - plans for home w/ Hospice today. Vital Signs: Vital Signs Date Time Temp Pulse Resp B/P (MAP) Pulse Ox O2 Delivery O2 Flow Rate FiO2 12/13/20 07:00 98.2 82 16 105/42 (63) 93 Room Air 98.2 12/13/20 02:58 2.0 PE: GEN: chronically ill - looks worse today, very thin NEURO/PSYCH: in and out of sleep A/P: Staph bacteremia, tricuspid valve vegetation, short gut syndrome -- Plans as above. Justicifation of Admission Dx: Justifications for Admission: Justification of Admission Dx: Yes CHF: Sev. Electrolyte Abnormal MARY-NENO HUTCHINS Dec 13, 2020 10:47
[2020-12-13 11:00] VITALS: BP 113/52
[2020-12-13] MEDS: LORazepam 0.5 MG TABLET PO SCH (11:14)
--- NOTE | 2020-12-13 11:30 | NUR ---
Discharge Note: LALI QUEEN [address] [place] [address] Discharge instructions and discharge home medications reviewed with Family Member and a copy given. All questions have been answered and understanding verbalized. The following instructions and handouts were given: diet, activity, medication list and follow up instructions provided to family. Family to follow up at home with home hospice arranged by social work. Discontinued lines and drains: Peripheral IV discontinued and catheter intact. Patient discharged to Home w/services with Ambulance Personnel via Stretcher
--- NOTE | 2020-12-13 12:12 | DS ---
DATE OF DISCHARGE: 12/13/2020 ADMITTING DIAGNOSIS: Sepsis. DISCHARGE DIAGNOSES: Resolving sepsis, failure to thrive, cachexia, history of ovarian cancer, history of short bowel syndrome, history of anemia, resolving metabolic encephalopathy, resolving fevers, resolving respiratory failure. HOSPITAL COURSE: The patient is a pleasant elderly female who presented with sepsis, has multiple comorbidities. She was admitted. We gave her IV fluids and antibiotics and consulted ID and cardiology and GI. She did have bacteremia on her blood cultures. We have been treating her with daptomycin. Today I saw her and examined her, she is at her baseline, but is quite frail, weak and ill. The family is understanding and wants to go with hospice. I discussed the case with the patient case manager and we will have her discharge with hospice. DISPOSITION: Home with hospice. ACTIVITY: Bed rest. DIET: N.p.o. MEDICATIONS: Comfort meds only. TOTAL TIME: [address]: Elida TID: [id number]
== END 2020-12-13 11:30 | disposition hospice, home (50) | DRG 314 ==
LOC: ER 21:20 → 6 SOUTH 23:00 → 4 NORTH 12-06 16:04
PROVIDERS: ADMIT Family Medicine; ATTEND Family Medicine
PROC: 02PYX3Z Removal of Infusion Device from Great Vessel, External Approach (ICD-10-PCS; principal; 2020-12-08)
DX: T80.211A Bloodstream infection due to central venous catheter, initial encounter (principal); A41.1 Sepsis due to other specified staphylococcus; E43 Unspecified severe protein-calorie malnutrition; G93.41 Metabolic encephalopathy; I33.0 Acute and subacute infective endocarditis; J96.01 Acute respiratory failure with hypoxia; J98.11 Atelectasis; K91.2 Postsurgical malabsorption, not elsewhere classified; R64 Cachexia; Z68.1 Body mass index [BMI] 19.9 or less, adult; M48.55XA Collapsed vertebra, not elsewhere classified, thoracolumbar region, initial encounter for fracture; Z51.5 Encounter for palliative care; Z66 Do not resuscitate; D64.9 Anemia, unspecified; F41.9 Anxiety disorder, unspecified; I07.1 Rheumatic tricuspid insufficiency; K57.30 Diverticulosis of large intestine without perforation or abscess without bleeding; K76.89 Other specified diseases of liver; K80.20 Calculus of gallbladder without cholecystitis without obstruction; K82.8 Other specified diseases of gallbladder; Y84.8 Other medical procedures as the cause of abnormal reaction of the patient, or of later complication, without mention of misadventure at the time of the procedure; M40.204 Unspecified kyphosis, thoracic region; I10 Essential (primary) hypertension; K21.9 Gastro-esophageal reflux disease without esophagitis; R16.0 Hepatomegaly, not elsewhere classified; R53.81 Other malaise; Z20.822 Contact with and (suspected) exposure to COVID-19; Z82.3 Family history of stroke; Z82.49 Family history of ischemic heart disease and other diseases of the circulatory system; Z85.43 Personal history of malignant neoplasm of ovary; Z86.73 Personal history of transient ischemic attack (TIA), and cerebral infarction without residual deficits; Z90.49 Acquired absence of other specified parts of digestive tract; Z90.710 Acquired absence of both cervix and uterus
CPT/HCPCS: 36415; 71045; 71250; 72128; 72131; 74176; 80048; 80053; 81001; 82550; 82962; 84145; 84484; 85007; 85025; 86140; 87040; 87070; 87077; 87086; 87186; 87205; 93306; 94760; 96360; J0690; J0878; J1650; J2020; J2060; J2543; J3370; J3490; J7030; J7050; U0003; U0005; 97110-GP; 97116-GP; 97530-GP; 97535-GO; 99285-25; G0378